=== PATIENT | female | born 1940 | race Caucasian/White ===

== ENCOUNTER 2023-02-27 18:59 | Inpatient (IN) | payer MEDICARE, SELFPAY ==
[2023-02-27 19:15] VITALS: BP 115/57; PULSE 78; RESP 18; TEMP 36.4; O2SAT 93
[2023-02-27] MEDS: Atorvastatin Calcium 20 MG Tablet PO (22:12)
[2023-02-27] MEDS: Cephalexin 500 MG Capsule PO (22:12)
[2023-02-27] MEDS: cycloBENZAPRine HCl 10 MG Tablet 5 MG PO (22:19)
--- NOTE | 2023-02-27 22:25 | HP.PCM_ITS ---
HPI - General General Date of Admission: 02/27/23 Date of Service: 02/28/23 Chief Complaint: Here for rehabilitation. HPI Narrative 02/08/2023 RAMÓN FARNSWORTH, is a 82 Female who presents with followin02/08/2023 Admit to [facility] with sepsis, hyperkalemia, K 6.5. Calcium gluconate, insulin, glucose, Lokelma, consult renal for hyperkalemia. Levaquin, Vancomycin given for sepsis secondary to urinary tract infection, bronchitis, left lower extremity cellulitis. acute kidney injury. Increase Levothyroxine to 75mcg daily for hypothyroidism. 02/21/2023 Creatinine 2.2 to 2.0 to 1.9 to 1.66 to 1.44 to 1.26. Renal recommended conservative treatment. Bergeron catheter for urinary retention. Broad spectrum IV antibiotics for left lower extremity cellulitis. Klebsiella urinary tract infection treated with Keflex. Sepsis resolved, 02/08/2023 blood cultures negative to date. Left banks wound culture negative. CT chest negative for bronchitis, negative for pneumonia. Off antibiotics. Bright red blood per rectum resolved. PT/OT for debility. Thoracentesis for pleural effusion showed transudate. Medical records limited. 02/27/2023 Admit to TCU with debility, here for rehabilitation, strengthening, prior to discharge home alone. [facility] Medical History (Updated 02/27/23 @ 22:[address] Fransico Marcelino MD) Acute kidney injury Chronic kidney disease, stage 3b Debility Diabetes mellitus History of lung cancer Hyperkalemia Hyperlipidemia Hypertension Left leg cellulitis Pleural effusion Sepsis Urinary retention Urinary tract infection Home Medications albuterol 2 puff Q4H PRN Shortness Of Breath 02/27/23 [History Last Taken Unknown] amiodarone 200 mg tablet 200 mg PO DAILY Check with primary doctor 02/27/23 [History Last Taken Unknown] apixaban 5 mg tablet (Eliquis) 5 mg PO BID Anticoagulant 02/27/23 [History Last Taken Unknown] atorvastatin 20 mg tablet 20 mg PO QHS Cholesterol 02/27/23 [History Last Taken Unknown] bumetanide 1 mg tablet 1 mg PO BID Check with primary doctor 02/27/23 [History Last Taken Unknown] cephalexin 1 cap PO/SL 3XD Infection 02/27/23 [History Last Taken Unknown] cyclobenzaprine 0.5 tablet PO/SL 3XD PRN muscle spasms 02/27/23 [History Last Taken Unknown] gabapentin 1 cap PO/SL BID Neuropathy 02/27/23 [History Last Taken Unknown] insulin lispro See Protocol OTHER ACHS Diabetes 02/27/23 [History Last Taken Unknown] levothyroxine 1 tablet PO/SL DAILY Thyroid 02/27/23 [History Last Taken Unknown] midodrine 1 tablet PO/SL 3XD Check with primary doctor 02/27/23 [History Last Taken Unknown] pantoprazole 1 tablet PO/SL DAILY Check with primary doctor 02/27/23 [History Last Taken Unknown] Allergy/AdvReac Type Severity Reaction Status Date / Time kiwi Allergy Food Verified 02/27/23 19:18 Allergy morphine Allergy Rash Verified 02/27/23 19:20 Penicillins Allergy Rash Verified 02/27/23 19:21 shellfish derived Allergy Food Verified 02/27/23 19:19 Allergy Family History (Updated 02/27/23 @ 22:[address] Fransico Marcelino MD) Mother CVA (cerebral vascular accident) Heart disease Father Diabetes Heart disease Surgical History (Updated 02/27/23 @ 22:[address] Fransico Marcelino MD) History of carpal tunnel surgery of left wrist History of coronary artery bypass graft History of gastric bypass History of lung biopsy History of total knee arthroplasty Social History (Updated 02/27/23 @ 22:[address] Fransico Marcelino MD) household members: none Smoking Status: Former smoker alcohol intake: never substance use type: does not use ROS Constitutional Constitutional: Reports weakness; Denies chills, fever(s) or weight gain ENT HEENT: Denies headache(s), nasal congestion or nasal discharge Cardiovascular Cardiovascular: Denies chest pain or palpitations Respiratory/Chest Respiratory/Chest: Denies cough, excessive phlegm production or shortness of breath with exertion Gastrointestinal Gastrointestinal: Denies abdominal pain, nausea or vomiting Genitourinary Genitourinary: Denies dysuria Musculoskeletal Musculoskeletal: Denies joint pain or joint swelling Integumentary Integumentary: Denies rash or wounds Neurologic Neurologic: Denies focal weakness, numbness or tingling Psychiatric Psychiatric: Denies anxiety, auditory hallucinations, depression, homicidal ideation or suicidal ideation Vital Signs Vital Signs Vital Signs: 02/27/23 19:15 Temperature 97.6 F L Temperature Source Oral Pulse Rate 78 Respiratory Rate 18 Blood Pressure 115/57 L Blood Pressure Mean 76 Blood Pressure Source Monitor Blood Pressure Position Semi-Fowlers Blood Pressure Location Right Arm Pulse Ox 93 Oxygen Delivery Method Nasal Cannula Oxygen Flow Rate (L/min) 3 Physical Exam Const alert General Appearance: cooperative HEENT normocephalic Eyes PERRL and EOMs intact bilaterally Neck supple, no JVD and no carotid bruits Resp normal respiratory effort, normal air movement and clear to auscultation bilaterally Cardio regular rate and regular rhythm GI normal to inspection, nondistended, normoactive bowel sounds, non-tender and non-distended Extremity normal capillary refill Extremity Narrative: Left lower extremity dressed. General Extremity: Negative for edema Skin no rashes or lesions noted General Skin Exam: no breakdown Psych affect normal Appearance: appropriate Results Lab / Micro Data Result Diagrams: 02/28/23 05:14 02/28/23 05:14 Assessment & Plan Assessment/Plan (1) Debility: (2) Sepsis: (3) Hyperkalemia: (4) Acute kidney injury: (5) Urinary retention: (6) Left leg cellulitis: (7) Urinary tract infection: (8) Pleural effusion: (9) Diabetes mellitus: (10) Hypertension: (11) Hyperlipidemia: (12) History of lung cancer: (13) Chronic kidney disease, stage 3b: PLAN: Plan 82 year old female with below past medical history hospitalized for sepsis secondary to left lower extremity cellulitis, Klebsiella urinary tract infection, complicated by acute kidney injury, hyperkalemia, pleural effusion requiring thoracentesis, admitted to TCU with debility, here for rehabilitation, strengthening, prior to discharge home alone. * Debility - PT/OT. * Pain - Tylenol 1000mg q6h prn pain (1-10). * Bowel - senna/colace 1 tablet bid, MOM 30ml po x 1 prn. * Adult immunization - Administer pneumonia vaccine, covid19 vaccine, flu vaccine as appropriate. * DVT prophylaxis - on Eliquis. * Shortness of breath - Albuterol 2 puffs q4h prn. * Atrial fibrillation - Amiodarone 200mg daily, Eliquis 5mg bid. * Hyperlipidemia - Atorvastatin 20mg qhs. * Edema - Bumex 1mg bidlx. * Sepsis/left lower extremity cellulitis/Klebsiella urinary tract infection - Keflex 500mg tid thru 03/06/2023. * Muscle spasm - Flexeril 5mg tid prn. * Folate deficiency - Folic acid 1mg daily. * Neuropathic pain - Gabapentin 100mg bid. * Hypothyroidism - Levothyroxine 50mcg daily. * Orthostatic hypotension - Midodrine 5mg tidcm. * GERD - Pantoprazole 40mg daily.
[2023-02-27 22:55] LABS: Bedside Glucose 241 mg/dL (74-106)
[2023-02-28 05:51] LABS: Absolute Lymphocyte Count 0.63 X10^3/uL (0.83-4.51); Absolute Neutrophil Count 5.4 X10^3/uL (2.0-7.7); Basophil# 0.05 X10^3/uL; Basophil% 0.7 % (0-1); Eosinophil# 0.05 X10^3/uL; Eosinophils% 0.7 % (0-5); Hematocrit 27.8 % (37-47); Lymphocyte # 0.63 X10^3/ul (0.83-4.51); Lymphocyte % 9.1 % (19-41); Mean Corp Hgb Conc 28.8 g/dL (32-36); Mean Corpuscular Hgb 25.4 pg (27.0-32.0); Mean Corpuscular Volume 88.3 fL (81-99); Mean Platelet Vol. 9.2 fl (6.2-12.0); Monocyte# 0.75 X10^3/uL; Monocyte% 10.8 % (0-10); NRBC Flagged by Analyzer 0 % (0-5); Neutrophil # 5.44 X10^3/uL (2.7-7.7); Neutrophil % 78.3 % (47-70); Platelet Count 242 K/mm3 (150-450); RBC Distribution Width SD 54.8 fl (35.1-43.9); Red Blood Count 3.15 M/mm3 (4.2-5.4)
[2023-02-28 06:25] LABS: Anion Gap 3 (5-15); BUN 54 mg/dL (7-18); BUN/Creat Ratio 37.2 RATIO (10-20); Calcium,Total 7.6 mg/dL (8.5-10.1); Chloride 101 mmol/L (98-107); Creatinine, Serum 1.45 mg/dL (0.55-1.02); EST Glomerular Filtration Rate 37 mL/min (>60); Est Glom Filt Rate - Afr Amer 45 mL/min (>60); Glucose 150 mg/dL (74-106); Potassium 4.4 mmol/L (3.5-5.1); Sodium Level 136 mmol/L (136-145)
[2023-02-28] MEDS: Amiodarone 200 MG Tablet PO (06:30)
[2023-02-28] MEDS: Bumetanide 2 MG Tablet 1 MG PO ×2 (06:30→15:01)
[2023-02-28] MEDS: APIXABAN 5 MG TABLET PO ×2 (06:30→18:01)
[2023-02-28] MEDS: Levothyroxine 50 MCG Tablet PO (06:31)
[2023-02-28] MEDS: Acetaminophen 500 MG Tablet 1000 MG PO (06:31)
[2023-02-28] MEDS: Gabapentin 100 MG Capsule PO ×2 (06:31→18:08)
[2023-02-28] MEDS: Cephalexin 500 MG Capsule PO ×2 (06:31→18:00)
[2023-02-28] MEDS: Senna/Docusate Sodium 1 Tablet PO ×2 (06:31→18:02)
[2023-02-28] MEDS: Pantoprazole Sodium 40 MG Tablet PO (06:31)
[2023-02-28 06:39] LABS: Bedside Glucose 144 mg/dL (74-106)
[2023-02-28 06:41] VITALS: BP 110/70; PULSE 92
[2023-02-28] MEDS: Folic Acid 1 MG Tablet PO (09:04)
[2023-02-28] MEDS: Midodrine HCl 5 MG Tablet PO ×3 (09:04→18:01)
[2023-02-28] MEDS: Tuberculin,Purif.prot.deriv. 50 TU/ML Vial 0.1 ML ID (09:18)
[2023-02-28 10:00] VITALS: BMI 48.5
--- NOTE | 2023-02-28 10:27 | WOUNDNOTE ---
wound photo: left medial lower leg
--- NOTE | 2023-02-28 10:27 | WOUNDNOTE ---
wound photo: left anterolateral lower leg
--- NOTE | 2023-02-28 10:36 | NURSING ---
Slot Shift Manager Note; Activity Asset: Viola Selby is independent in her choice of daily activities. She stated son is a teacher and will visit in the evenings after school. She watches tv, reads magazines and when at home she uses her computer. She stated she is not interested in out of room activities at this time. Staff will continue to offer out of room activities and respect her right to say no.
--- NOTE | 2023-02-28 11:10 | PCM.PN.DRR ---
TCU RX Drug Regimen Review Subjective: TCU Admission. 82 YOF hospitalized for sepsis secondary to left lower extremity cellulitis, Klebsiella urinary tract infection, complicated by acute kidney injury, hyperkalemia, pleural effusion requiring thoracentesis. Admitted to TCU with debility for strengthening and rehabilitation. Objective: Allergies kiwi Allergy (Verified 02/27/23 19:18) Food Allergy morphine Allergy (Verified 02/27/23 19:20) Rash Penicillins Allergy (Verified 02/27/23 19:21) Rash shellfish derived Allergy (Verified 02/27/23 19:19) Food Allergy Current Medications Generic Name Dose Route Start Last Admin Trade Name Freq PRN Reason Stop Dose Admin Acetaminophen 1,000 mg 02/27/23 22:42 02/28/23 06:31 Acetaminophen 500 Mg Tablet PO 1,000 mg Q6H PRN PRN Administration Pain Score 1-10 Albuterol Sulfate 2 puff 02/27/23 20:51 Albuterol Ih (6.7 Gm) 1 Puff Inhaler INHALATION Q4H PRN Shortness Of Breath Amiodarone HCl 200 mg 02/28/23 06:00 02/28/23 06:30 Amiodarone 200 Mg Tablet PO 200 mg DAILY ORALIA Administration Apixaban 5 mg 02/28/23 06:00 02/28/23 06:30 Apixaban 5 Mg Tablet PO 5 mg BID ORALIA Administration Atorvastatin Calcium 20 mg 02/27/23 22:00 02/27/23 22:12 Atorvastatin Calcium 20 Mg Tablet PO 20 mg QHS ORALIA Administration Bumetanide 1 mg 02/28/23 06:00 02/28/23 06:30 Bumetanide 2 Mg Tablet PO 1 mg BIDLX ORALIA Administration Cephalexin 500 mg 02/27/23 22:00 02/28/23 06:31 Cephalexin 500 Mg Capsule PO 03/06/23 23:59 500 mg TID ORALIA Administration Cyclobenzaprine HCl 5 mg 02/27/23 20:53 02/27/23 22:19 Cyclobenzaprine Hcl 10 Mg Tablet PO 5 mg TID PRN PRN Administration muscle spasms Folic Acid 1 mg 02/28/23 08:00 02/28/23 09:04 Folic Acid 1 Mg Tablet PO 1 mg BREAKFAST ORALIA Administration Gabapentin 100 mg 02/28/23 06:00 02/28/23 06:31 Gabapentin 100 Mg Capsule PO 100 mg BID ORALIA Administration Levothyroxine Sodium 50 mcg 02/28/23 06:00 02/28/23 06:31 Levothyroxine 50 Mcg Tablet PO 50 mcg DAILY@0600 ORALIA Administration Magnesium Hydroxide 30 ml 02/27/23 22:42 Magnesium Hydroxide 30 Ml Udc PO X1 PRN Constipation Melatonin 10 mg 02/28/23 22:00 Melatonin 10 Mg Tablet PO QHS [facility] Midodrine 5 mg 02/28/23 07:45 02/28/23 09:04 Midodrine Hcl 5 Mg Tablet PO 5 mg TIDCM ORALIA Administration Nystatin 1 applic 02/28/23 18:00 Nystatin Powder 15gm Bottle TOPICAL BID [facility] Protocol Pantoprazole Sodium 40 mg 02/28/23 06:00 02/28/23 06:31 Pantoprazole Sodium 40 Mg Tablet PO 40 mg DAILY ORALIA Administration Senna/Docusate Sodium 1 tablet 02/28/23 06:00 02/28/23 06:31 Senna/Docusate Sodium 1 Tablet PO 1 tablet BID ORALIA Administration Tuberculin PPD 0.1 ml 03/07/23 10:00 Tuberculin,Purif.Prot.Deriv. 50 Tu/Ml Vial ID 03/07/23 10:01 X1 ONE Problem List (Last Updated 02/27/23 @ 22:[address] Fransico Marcelino MD) Chronic kidney disease, stage 3b (Acute) History of lung cancer (Acute) Hyperlipidemia (Acute) Hypertension (Chronic) Diabetes mellitus (Acute) Pleural effusion (Acute) Urinary tract infection (Acute) Left leg cellulitis (Acute) Urinary retention (Acute) Acute kidney injury (Acute) Hyperkalemia (Acute) Sepsis (Acute) Debility (Acute) Vital Signs Temp Pulse Resp BP Pulse Ox O2 Del Method O2 Flow Rate 97.6 F L 92 18 110/70 93 Nasal Cannula 3 02/27/23 19:15 02/28/23 06:41 02/27/23 19:15 02/28/23 06:41 02/27/23 19:15 02/27/23 19:15 02/27/23 19:15 Oxygen Flow Rate (L/min) 3 Oxygen Delivery Method Nasal Cannula Weight: 120.383 kg Body Mass Index (BMI) 48.5 Sodium 136 mmol/L (136-145) 02/28/23 05:14 Potassium 4.4 mmol/L (3.5-5.1) 02/28/23 05:14 Chloride 101 mmol/L (98-107) 02/28/23 05:14 Carbon Dioxide 32.0 mmol/L (21.0-32.0) 02/28/23 05:14 Anion Gap 3 (5-15) L 02/28/23 05:14 BUN 54 mg/dL (7-18) H 02/28/23 05:14 Creatinine 1.45 mg/dL (0.55-1.02) H 02/28/23 05:14 Est GFR (MDRD) Af Amer 45 mL/min (>60) L 02/28/23 05:14 Est GFR (MDRD) Non-Af 37 mL/min (>60) L 02/28/23 05:14 BUN/Creatinine Ratio 37.2 RATIO (10-20) H 02/28/23 05:14 Glucose 150 mg/dL (74-106) H 02/28/23 05:14 Assessment/Plan: 1. Pain: acetaminophen 1000mg PO Q6H PRN pain 1-10. Resident has used 1 dose so far. Please continue to monitor for increased pain and PRN usage. 2. Bowel: senna/docusate 1T PO BID and MOM 30mL PO x1 PRN constipation. Resident has not used any PRN doses. No documented bowel movements. Please continue to monitor for constipation and PRN usage. 3. Sepsis/LLE cellulitis/Klebsiella UTI: cephalexin 500mg PO BID thru 03/06/23. Please continue to monitor for S/S of infection, diarrhea, upset stomach and renal function (dose adjusted for CrCl of 38 mL/min using adjusted body weight at weight in the computer is 120kg, height 62 inches, SCr 1.45 mg/dL). 4. Atrial fibrillation: amiodarone 200mg PO daily and apixaban 5mg PO BID. Please continue to monitor BP (last 110/70), HR (last 92), potassium (last 4.4mmol/L), sodium (last 136mmol/L), S/S of bleeding and hemoglobin (last 8g/dL). 5. Edema: bumetanide 1mg PO BIDLX. Please continue to monitor potassium, edema and renal function. 6. Hyperlipidemia: atorvastatin 20mg PO QHS. Please consider ordering a lipid panel and LFTs if clinically appropriate as there are no levels in the chart. Thanks. Please continue to monitor for muscle pain. 7. Orthostatic hypotension: midodrine 5mg PO TIDCM. Please continue to monitor BP (last 110/70). 8. Hypothyroidism: levothyroxine 50mcg PO daily. Please consider ordering a TSH if clinically appropriate as there is no level in the chart. Thanks. Please continue to monitor for S/S of hypo/hyperthyroidism. 9. GERD: pantoprazole 40mg PO daily. Please continue to monitor for S/S of GERD and diarrhea (BEERs medication). 10. Muscle spasm: cyclobenzaprine 5mg PO TID PRN muscle spasm. Resident has had 1 dose so far. Please continue to monitor for muscle spasms, PRN usage, drowsiness, dementia/delirium (BEERs medication) and anticholinergic side effects (BEERs medication). 11. Shortness of breath: albuterol MDI 2puff inhalation Q4H PRN SOB. Resident has not had any doses so far. Please continue to monitor for SOB and PRN usage. 12. Folate deficiency: folic acid 1mg PO daily. Please continue to monitor. Assessment/Plan for indications treated with psychotropic medications: 1. Neuropathic pain: gabapentin 100mg PO BID. Please continue to monitor for confusion, falls/fractures (BEERs medication) and renal function (dose appropriate for CrCl of 38mL/min using adjusted BW). GDR not appropriate as this medication is being used for neuropathic pain. Medical chart and medication regimen reviewed. The following medication irregularities or issues were identified: *1. Atorvastatin 20mg PO QHS. Please consider ordering a lipid panel and LFTs if clinically appropriate as there are no levels in the chart. Thanks *2. Melatonin 10mg PO QHS. I did not see a documented indication for this medication. Please consider adding the indication. Date of Note:: 02/28/23
[2023-02-28] MEDS: Magnesium Hydroxide 30 ML UDC PO (13:26)
[2023-02-28 14:44] VITALS: BP 114/66; PULSE 79; RESP 16; TEMP 36.4; O2SAT 94
[2023-02-28 15:29] LABS: Bedside Glucose 269 mg/dL (74-106)
--- NOTE | 2023-02-28 16:03 | CHAPLAIN ---
Type of Pastoral Visit _x__ Initial Visit ___ Follow-up Visit ___ On-call Visit ___ General Patient Visit ___ Spiritual Assessment ___ Family Conference ___ Bereavement ___ Rapid Response ___ Code Blue ___ Other (describe below) Pastoral Care Referral From _x__ Patient ___ Family ___ Nurse ___ Physician ___ Site Safety Manager ___ Rehabilitation Services Aide ___ Other (describe below) Sacrament/Intervention _x__ Active listening ___ Anointing ___ Restorationism ___ Bereavement ___ Communion _x__ Trina exploration ___ _x__ Life review _x__ Prayer ___ Reconciliation ___ Sacrament of Sick _x__ Supportive presence ___ Wedding ___ Other (describe below) Pastoral Comments upon introduction of self and role to the patient, pt says I need you to pray for me; pt is upset that changes in health and strength have happened so fast; pt is worried about her daughter that has had three strokes in six months; pt is person of trina and has Catholic anabaptist membership for many years; pt gets support from family; pt would like to have more visits in the future
[2023-02-28 17:23] LABS: Bedside Glucose 250 mg/dL (74-106)
[2023-02-28 19:50] VITALS: PULSE 106; RESP 18; O2SAT 98
[2023-02-28] MEDS: Nystatin Powder 15gm Bottle 1 APPLIC TOPICAL (19:59)
[2023-02-28 21:30] LABS: Bedside Glucose 298 mg/dL (74-106)
[2023-02-28] MEDS: MELATONIN 10 MG TABLET PO (21:40)
[2023-02-28] MEDS: Atorvastatin Calcium 20 MG Tablet PO (21:40)
[2023-02-28 23:35] VITALS: BMI 49.0
[2023-03-01] MEDS: Magnesium Hydroxide 30 ML UDC PO (05:28)
[2023-03-01] MEDS: Amiodarone 200 MG Tablet PO (05:28)
[2023-03-01] MEDS: Bumetanide 2 MG Tablet 1 MG PO ×2 (05:28→14:27)
[2023-03-01] MEDS: Gabapentin 100 MG Capsule PO ×2 (05:28→18:37)
[2023-03-01] MEDS: Pantoprazole Sodium 40 MG Tablet PO (05:29)
[2023-03-01] MEDS: APIXABAN 5 MG TABLET PO ×2 (05:29→18:38)
[2023-03-01] MEDS: Levothyroxine 50 MCG Tablet PO (05:29)
[2023-03-01] MEDS: Cephalexin 500 MG Capsule PO ×2 (05:29→18:38)
[2023-03-01] MEDS: Senna/Docusate Sodium 1 Tablet PO ×2 (05:29→18:37)
[2023-03-01] MEDS: Nystatin Powder 15gm Bottle 1 APPLIC TOPICAL ×2 (05:30→18:39)
[2023-03-01 05:36] VITALS: BP 167/47; PULSE 89
[2023-03-01 05:53] LABS: Hematocrit 29.6 % (37-47); Hemoglobin 8.4 g/dL (12.0-15.0)
[2023-03-01 06:49] LABS: Bedside Glucose 220 mg/dL (74-106)
[2023-03-01] MEDS: Midodrine HCl 5 MG Tablet PO ×3 (08:43→18:38)
[2023-03-01] MEDS: Folic Acid 1 MG Tablet PO (08:43)
[2023-03-01 08:45] VITALS: BP 111/51; PULSE 100
[2023-03-01 11:28] LABS: Bedside Glucose 326 mg/dL (74-106)
[2023-03-01] MEDS: Insulin Lispro 100 UNIT/ML INSULN.PEN SC ×2 (12:06→18:38)
--- NOTE | 2023-03-01 12:39 | CASEMGMT ---
Social Work Met with patient for initial assessment. Introduced self and role. Discussed code status and MOLST form. Pt confirms DNR-CCA, no intubation. MOLST completed and placed in Dr folder. Educated to [facility] insurance with NRD 03/01 and continued stay is not guaranteed with each review. Pt's goal is to return home alone [facility]. SW to continue to follow for DC planning. Cathy Young, [employer] NEUROPSYCHOLOGIST
[2023-03-01 13:41] VITALS: BP 114/59; PULSE 94; RESP 18; TEMP 35.9; O2SAT 92
[2023-03-01 17:11] LABS: Bedside Glucose 267 mg/dL (74-106)
[2023-03-01] MEDS: Atorvastatin Calcium 20 MG Tablet PO (19:55)
[2023-03-01] MEDS: MELATONIN 10 MG TABLET PO (19:55)
[2023-03-01 20:04] VITALS: PULSE 101; RESP 16
[2023-03-01 22:00] LABS: Bedside Glucose 319 mg/dL (74-106)
[2023-03-01] MEDS: Mirtazapine 15 MG Tablet 7.5 MG PO (22:16)
[2023-03-02] MEDS: Acetaminophen 500 MG Tablet 1000 MG PO ×2 (02:22→14:47)
[2023-03-02] MEDS: cycloBENZAPRine HCl 10 MG Tablet 5 MG PO (02:22)
[2023-03-02] MEDS: Menthol/Lanolin/Calamine/Znox 113 GM Tube 1 APPLIC TOPICAL ×2 (06:06→17:24)
[2023-03-02] MEDS: Bumetanide 2 MG Tablet 1 MG PO ×2 (06:07→13:36)
[2023-03-02] MEDS: Amiodarone 200 MG Tablet PO (06:07)
[2023-03-02] MEDS: Senna/Docusate Sodium 1 Tablet PO ×2 (06:08→17:33)
[2023-03-02] MEDS: Nystatin Powder 15gm Bottle 1 APPLIC TOPICAL ×2 (06:08→17:25)
[2023-03-02] MEDS: Cephalexin 500 MG Capsule PO ×2 (06:08→17:32)
[2023-03-02] MEDS: APIXABAN 5 MG TABLET PO ×2 (06:08→17:32)
[2023-03-02] MEDS: Levothyroxine 50 MCG Tablet PO (06:08)
[2023-03-02] MEDS: Pantoprazole Sodium 40 MG Tablet PO (06:08)
[2023-03-02] MEDS: Gabapentin 100 MG Capsule PO ×2 (06:10→17:34)
[2023-03-02] MEDS: Insulin Lispro 100 UNIT/ML INSULN.PEN SC ×3 (06:33→17:30)
[2023-03-02 06:49] LABS: Bedside Glucose 223 mg/dL (74-106)
[2023-03-02] MEDS: Midodrine HCl 5 MG Tablet PO ×3 (09:42→17:31)
[2023-03-02] MEDS: Folic Acid 1 MG Tablet PO (09:43)
[2023-03-02 12:05] LABS: Bedside Glucose 270 mg/dL (74-106)
[2023-03-02 13:40] VITALS: PULSE 97; RESP 18; O2SAT 96
[2023-03-02 16:00] VITALS: BP 118/69; PULSE 92; RESP 16; TEMP 36.4; O2SAT 100
[2023-03-02 16:52] LABS: Bedside Glucose 295 mg/dL (74-106)
[2023-03-02] MEDS: MELATONIN 10 MG TABLET PO (21:06)
[2023-03-02] MEDS: Mirtazapine 15 MG Tablet 7.5 MG PO (21:06)
[2023-03-02] MEDS: Atorvastatin Calcium 20 MG Tablet PO (21:06)
[2023-03-02 21:59] LABS: Bedside Glucose 324 mg/dL (74-106)
[2023-03-03] MEDS: cycloBENZAPRine HCl 10 MG Tablet 5 MG PO (00:03)
[2023-03-03] MEDS: Acetaminophen 500 MG Tablet 1000 MG PO ×2 (00:03→06:13)
[2023-03-03] MEDS: Gabapentin 100 MG Capsule PO ×2 (06:13→17:45)
[2023-03-03] MEDS: APIXABAN 5 MG TABLET PO ×2 (06:13→17:43)
[2023-03-03] MEDS: Senna/Docusate Sodium 1 Tablet PO ×2 (06:14→17:43)
[2023-03-03] MEDS: Pantoprazole Sodium 40 MG Tablet PO (06:14)
[2023-03-03] MEDS: Levothyroxine 50 MCG Tablet PO (06:14)
[2023-03-03] MEDS: Bumetanide 2 MG Tablet 1 MG PO ×2 (06:14→14:41)
[2023-03-03] MEDS: Amiodarone 200 MG Tablet PO (06:14)
[2023-03-03] MEDS: Cephalexin 500 MG Capsule PO ×2 (06:14→17:43)
[2023-03-03] MEDS: Menthol/Lanolin/Calamine/Znox 113 GM Tube 1 APPLIC TOPICAL ×2 (06:16→17:44)
[2023-03-03] MEDS: Nystatin Powder 15gm Bottle 1 APPLIC TOPICAL ×2 (06:17→17:44)
[2023-03-03 06:39] LABS: Bedside Glucose 282 mg/dL (74-106)
[2023-03-03] MEDS: Folic Acid 1 MG Tablet PO (08:30)
[2023-03-03] MEDS: Midodrine HCl 5 MG Tablet PO ×3 (08:30→17:42)
[2023-03-03] MEDS: Insulin Glargine-YFGN 100 UNIT/ML Pen 30 UNIT SC ×2 (08:31→20:49)
[2023-03-03] MEDS: Insulin Lispro 100 UNIT/ML INSULN.PEN SC (08:36)
[2023-03-03 10:00] VITALS: PULSE 99; RESP 18; O2SAT 97; BMI 49.6
[2023-03-03 11:51] LABS: Bedside Glucose 308 mg/dL (74-106)
[2023-03-03] MEDS: Insulin Lispro 100 UNIT/ML INSULN.PEN 10 UNIT SC ×2 (12:14→17:41)
[2023-03-03 13:50] VITALS: BP 132/89; PULSE 98; RESP 18; TEMP 35.2; O2SAT 96
[2023-03-03 16:32] LABS: Bedside Glucose 263 mg/dL (74-106)
[2023-03-03] MEDS: MELATONIN 10 MG TABLET PO (20:48)
[2023-03-03] MEDS: Atorvastatin Calcium 20 MG Tablet PO (20:48)
[2023-03-03] MEDS: Mirtazapine 15 MG Tablet 7.5 MG PO (20:49)
[2023-03-03 22:02] LABS: Bedside Glucose 203 mg/dL (74-106)
[2023-03-04] MEDS: APIXABAN 5 MG TABLET PO ×2 (06:36→17:01)
[2023-03-04] MEDS: Levothyroxine 50 MCG Tablet PO (06:36)
[2023-03-04] MEDS: Pantoprazole Sodium 40 MG Tablet PO (06:37)
[2023-03-04] MEDS: Bumetanide 2 MG Tablet 1 MG PO ×2 (06:37→14:42)
[2023-03-04] MEDS: Senna/Docusate Sodium 1 Tablet PO ×2 (06:37→17:02)
[2023-03-04] MEDS: Cephalexin 500 MG Capsule PO ×2 (06:37→17:01)
[2023-03-04] MEDS: Amiodarone 200 MG Tablet PO (06:37)
[2023-03-04] MEDS: Gabapentin 100 MG Capsule PO ×2 (06:40→17:03)
[2023-03-04 06:42] LABS: Bedside Glucose 132 mg/dL (74-106)
[2023-03-04] MEDS: Nystatin Powder 15gm Bottle 1 APPLIC TOPICAL ×2 (06:42→17:07)
[2023-03-04] MEDS: Menthol/Lanolin/Calamine/Znox 113 GM Tube 1 APPLIC TOPICAL ×2 (06:42→17:01)
[2023-03-04] MEDS: Insulin Lispro 100 UNIT/ML INSULN.PEN 10 UNIT SC (08:07)
[2023-03-04] MEDS: Folic Acid 1 MG Tablet PO (08:07)
[2023-03-04] MEDS: Midodrine HCl 5 MG Tablet PO ×3 (08:07→17:01)
[2023-03-04 10:00] VITALS: BMI 49.7
--- NOTE | 2023-03-04 12:01 | NURSING ---
Melatonin d/c and doxepin added qhs for improved rest at night
[2023-03-04 12:05] LABS: Bedside Glucose 149 mg/dL (74-106)
[2023-03-04] MEDS: Insulin Lispro 100 UNIT/ML INSULN.PEN 7 UNIT SC ×2 (13:10→17:00)
[2023-03-04 14:02] VITALS: BP 120/90; PULSE 91; RESP 16; TEMP 35.2; O2SAT 98
[2023-03-04 16:31] LABS: Bedside Glucose 153 mg/dL (74-106)
[2023-03-04] MEDS: cycloBENZAPRine HCl 10 MG Tablet 5 MG PO (19:43)
[2023-03-04] MEDS: Acetaminophen 500 MG Tablet 1000 MG PO (19:44)
[2023-03-04] MEDS: Atorvastatin Calcium 20 MG Tablet PO (19:44)
[2023-03-04] MEDS: Doxepin Hydrochloride 10 MG Capsule PO (19:45)
[2023-03-04] MEDS: Mirtazapine 15 MG Tablet 7.5 MG PO (19:45)
--- NOTE | 2023-03-04 19:48 | NURSING ---
Pt requested medication at this time
[2023-03-04] MEDS: Insulin Glargine-YFGN 100 UNIT/ML Pen 30 UNIT SC (22:06)
[2023-03-04 22:28] LABS: Bedside Glucose 159 mg/dL (74-106)
[2023-03-05] MEDS: Menthol/Lanolin/Calamine/Znox 113 GM Tube 1 APPLIC TOPICAL ×2 (04:54→19:44)
[2023-03-05] MEDS: Gabapentin 100 MG Capsule PO ×2 (04:54→17:53)
[2023-03-05] MEDS: Cephalexin 500 MG Capsule PO ×2 (04:55→17:50)
[2023-03-05] MEDS: Nystatin Powder 15gm Bottle 1 APPLIC TOPICAL ×2 (04:55→19:44)
[2023-03-05] MEDS: Senna/Docusate Sodium 1 Tablet PO ×2 (04:55→17:50)
[2023-03-05] MEDS: Levothyroxine 50 MCG Tablet PO (04:55)
[2023-03-05] MEDS: Amiodarone 200 MG Tablet PO (04:55)
[2023-03-05] MEDS: Pantoprazole Sodium 40 MG Tablet PO (04:55)
[2023-03-05] MEDS: Bumetanide 2 MG Tablet 1 MG PO ×2 (04:55→15:06)
[2023-03-05] MEDS: APIXABAN 5 MG TABLET PO ×2 (04:56→17:49)
[2023-03-05 06:28] LABS: Bedside Glucose 112 mg/dL (74-106)
[2023-03-05] MEDS: Folic Acid 1 MG Tablet PO (07:44)
[2023-03-05] MEDS: Insulin Lispro 100 UNIT/ML INSULN.PEN 7 UNIT SC ×3 (07:44→17:47)
[2023-03-05] MEDS: Midodrine HCl 5 MG Tablet PO ×3 (07:44→17:49)
[2023-03-05] MEDS: Magnesium Hydroxide 30 ML UDC PO (08:49)
--- NOTE | 2023-03-05 10:43 | WOUNDNOTE ---
wound photo: left lower leg(anterolateral)
--- NOTE | 2023-03-05 10:45 | WOUNDNOTE ---
wound photo: left medial lower leg
[2023-03-05 11:15] VITALS: O2SAT 93
[2023-03-05 12:00] LABS: Bedside Glucose 133 mg/dL (74-106)
[2023-03-05 14:11] VITALS: BP 104/58; PULSE 95; RESP 14; TEMP 36; O2SAT 97
[2023-03-05 16:07] VITALS: BMI 49.9
[2023-03-05 16:51] LABS: Bedside Glucose 140 mg/dL (74-106)
[2023-03-05 18:02] LABS: Absolute Lymphocyte Count 0.56 X10^3/uL (0.83-4.51); Absolute Neutrophil Count 4.7 X10^3/uL (2.0-7.7); Basophil# 0.03 X10^3/uL; Basophil% 0.5 % (0-1); Eosinophil# 0.03 X10^3/uL; Eosinophils% 0.5 % (0-5); Hematocrit 30.6 % (37-47); Hemoglobin 8.8 g/dL (12.0-15.0); Lymphocyte # 0.56 X10^3/ul (0.83-4.51); Lymphocyte % 9.3 % (19-41); Mean Corp Hgb Conc 28.8 g/dL (32-36); Mean Corpuscular Hgb 25.6 pg (27.0-32.0); Mean Platelet Vol. 9.6 fl (6.2-12.0); Monocyte# 0.67 X10^3/uL; Monocyte% 11.1 % (0-10); NRBC Flagged by Analyzer 0.5 % (0-5); Neutrophil # 4.74 X10^3/uL (2.7-7.7); Neutrophil % 78.3 % (47-70); POSITIVE DIFFERENTIAL YES; Platelet Count 261 K/mm3 (150-450); RBC Distribution Width CV 16.7 % (11.6-14.6); RBC Distribution Width SD 54.4 fl (35.1-43.9); Red Blood Count 3.44 M/mm3 (4.2-5.4); White Blood Count 6.1 K/mm3 (4.4-11.0)
[2023-03-05 18:04] LABS: Differential Indicated SCAN CRITERIA MET
[2023-03-05 18:31] LABS: Anion Gap 4 (5-15); BUN 70 mg/dL (7-18); BUN/Creat Ratio 38.7 RATIO (10-20); Calcium,Total 8.4 mg/dL (8.5-10.1); Chloride 95 mmol/L (98-107); Creatinine, Serum 1.81 mg/dL (0.55-1.02); EST Glomerular Filtration Rate 29 mL/min (>60); Est Glom Filt Rate - Afr Amer 35 mL/min (>60); Estimated Creatinine Clearance 19.61 ml/min; Glucose 126 mg/dL (74-106); Potassium 6.1 mmol/L (3.5-5.1); Sodium Level 131 mmol/L (136-145)
--- NOTE | 2023-03-05 18:44 | NURSING ---
Notified Dr. Marcelino of critical potassium 6.1. New order 30g kayexalate and BMP for tomorrow morning.
[2023-03-05 18:45] LABS: BNP,B-Type NATRIURETIC PEPTIDE 1555.2 pg/mL (0-100)
[2023-03-05 18:48] LABS: Differential Comment SCANNED
[2023-03-05 19:30] VITALS: O2SAT 95
[2023-03-05] MEDS: Sodium Polystyrene Sulfonate 15 GM/60 ML UDC 30 GM PO (19:42)
--- NOTE | 2023-03-05 20:25 | RAD_ITS ---
STUDY: X-RAY CHEST REASON FOR EXAM: Female, 82 years old. shortness of breath TECHNIQUE: Frontal and lateral views of the chest. COMPARISON: Prior comparison studies are not available for review at this time. FINDINGS: Abnormal examination. Decreased lung volumes. Soft tissue density consistent with mass in and around the right hilum and along the right medial mediastinum. Additional soft tissue density in the lateral inferior right hemithorax consistent with atelectasis/infiltrate/effusion. Right lung grossly clear. Implanted left Mediport catheter terminates at the level of the cavoatrial junction. Moderate cardiomegaly. Previous CABG. Degenerative changes throughout the spine. RAD/Chest PA and Lateral IMPRESSION: There are numerous abnormalities especially of the right lung, right hilum and mediastinum. CT of the chest with contrast is recommended since there are no prior studies available. Electronically Signed: Tavo Coello MD at 21:51 EDT ,
[2023-03-05] MEDS: Insulin Glargine-YFGN 100 UNIT/ML Pen 20 UNIT SC (20:53)
[2023-03-05] MEDS: Atorvastatin Calcium 20 MG Tablet PO (20:54)
[2023-03-05] MEDS: Mirtazapine 15 MG Tablet 7.5 MG PO (20:54)
[2023-03-05] MEDS: Doxepin Hydrochloride 10 MG Capsule PO (20:54)
[2023-03-05] MEDS: Bumetanide 1 MG/4 ML Vial IV (21:04)
[2023-03-05] MEDS: 0.9% Saline Lock 10 ML Syringe IV (21:13)
[2023-03-05 21:24] VITALS: BP 122/55; PULSE 84
[2023-03-05 21:26] LABS: Bedside Glucose 189 mg/dL (74-106)
--- NOTE | 2023-03-05 21:30 | NURSING ---
Lt upper chest mediport accessed for initial dose of IV Bumex using 3/4 in lin needle x 1 attempt successful. Strict sterile technique performed. Good blood return. Flushed w/ 10 ml NS. Two sterile 2x2s folded and placed under extension tubing. Secured w/ an opsite. Pt tolerated well. Will continue to monitor.
[2023-03-06] MEDS: Cephalexin 500 MG Capsule PO ×2 (05:24→18:05)
[2023-03-06] MEDS: Pantoprazole Sodium 40 MG Tablet PO (05:24)
[2023-03-06] MEDS: Levothyroxine 50 MCG Tablet PO (05:24)
[2023-03-06] MEDS: APIXABAN 5 MG TABLET PO ×2 (05:25→18:04)
[2023-03-06] MEDS: Senna/Docusate Sodium 1 Tablet PO ×2 (05:25→18:05)
[2023-03-06] MEDS: Gabapentin 100 MG Capsule PO ×2 (05:25→18:09)
[2023-03-06] MEDS: Nystatin Powder 15gm Bottle 1 APPLIC TOPICAL ×2 (05:27→18:06)
[2023-03-06] MEDS: Menthol/Lanolin/Calamine/Znox 113 GM Tube 1 APPLIC TOPICAL ×2 (05:27→18:06)
[2023-03-06 05:44] VITALS: BMI 49.3
[2023-03-06 06:26] LABS: Bedside Glucose 60 mg/dL (74-106)
[2023-03-06 06:35] LABS: Anion Gap 3 (5-15); BUN 67 mg/dL (7-18); BUN/Creat Ratio 38.7 RATIO (10-20); Calcium,Total 8.1 mg/dL (8.5-10.1); Chloride 96 mmol/L (98-107); Creatinine, Serum 1.73 mg/dL (0.55-1.02); EST Glomerular Filtration Rate 30 mL/min (>60); Est Glom Filt Rate - Afr Amer 36 mL/min (>60); Estimated Creatinine Clearance 20.51 ml/min; Glucose 77 mg/dL (74-106); Potassium 4.5 mmol/L (3.5-5.1); Sodium Level 133 mmol/L (136-145)
[2023-03-06 06:53] LABS: Bedside Glucose 76 mg/dL (74-106)
--- NOTE | 2023-03-06 07:25 | NURSING ---
AM blood sugar was 60. Administered 4 oz of orange juice and 2 crackers with peanut. Recheck was 76. Breakfast Humalog held. Note left for Dr. Marcelino.
[2023-03-06] MEDS: Bumetanide 1 MG/4 ML Vial IV ×2 (07:58→14:04)
[2023-03-06] MEDS: 0.9% Saline Lock 10 ML Syringe IV ×3 (07:59→18:51)
[2023-03-06 08:10] VITALS: BP 102/53; PULSE 91
[2023-03-06] MEDS: Folic Acid 1 MG Tablet PO (08:16)
[2023-03-06] MEDS: Amiodarone 200 MG Tablet PO (08:16)
[2023-03-06] MEDS: Midodrine HCl 5 MG Tablet PO ×3 (08:16→18:04)
[2023-03-06 08:19] VITALS: BP 133/47; PULSE 88
--- NOTE | 2023-03-06 08:29 | NURSING ---
Dr. Marcelino gave written and verbal order for chest CT from xray recommendations. Called insurance [employer], reference #[id number]. CT approved, authorization #[id number]. Order faxed to CT.
[2023-03-06 09:25] VITALS: PULSE 86; RESP 18; O2SAT 97
[2023-03-06 10:00] VITALS: BMI 49.3
--- NOTE | 2023-03-06 10:28 | CASEMGMT ---
Social Work BIMS (09/07) and PHQ-9 () completed for MDS assessment. SW explored positive responses. Pt reports to having staff come in and out of room all night, which is interrupting her sleep and causing daytime sleepiness. Pt reports to having poor appetite. Pt explains feeling a loss of independence stating I'm in this chair and can't move. SW empathized with pt, validated feelings. Focused on forward thinking. Pt is encouraged by receiving daily therapy and has motivation to improve. SW offered ongoing supportive visits and will offer after care resources if not improved by time of DC. SW noted pt is on Remeron and provided verbal communication to cutting machine fixer to less interruptions at night, if able. Cathy Young, GASOLINE FINISHER DYNAMITER
[2023-03-06 11:35] LABS: Bedside Glucose 154 mg/dL (74-106)
--- NOTE | 2023-03-06 12:51 | NURSING ---
PT GIVEN PFIZER BOOSTER IN LEFT DELT. PT TOLERATED WELL. WILL CONTINUE TO MONITOR.
[2023-03-06 14:55] VITALS: BP 136/53; PULSE 86; RESP 14; TEMP 36.7; O2SAT 97
[2023-03-06 16:51] LABS: Bedside Glucose 157 mg/dL (74-106)
--- NOTE | 2023-03-06 17:15 | NURSING ---
CALLED SON AND UPDATED HIM ON HIS MOM. PALLIATIVE CARE WAS BROUGHT UP AND SON STATED THEY HAD SOME THING STARTED IN [place] AND WOULD LIKE TO LOOK INTO IT HERE. THIS NURSE STATED TO BRING IT UP IN THE PLAN OF CARE MEETING TOMORROW AND STAFF WILL HELP HIM WITH THAT. SON VERY THANKFUL AND STATED HE WANTS TO KEEP HIS MOM COMFORTABLE POSSIBLE.
[2023-03-06 17:25] VITALS: O2SAT 95
[2023-03-06] MEDS: Ceftriaxone 1 GM/50 ML BAG IV (18:50)
[2023-03-06] MEDS: Mirtazapine 15 MG Tablet 7.5 MG PO (21:31)
[2023-03-06] MEDS: Doxepin Hydrochloride 10 MG Capsule PO (21:31)
[2023-03-06] MEDS: Atorvastatin Calcium 20 MG Tablet PO (21:32)
[2023-03-06] MEDS: Acetaminophen 500 MG Tablet 1000 MG PO (22:58)
--- NOTE | 2023-03-07 00:03 | NURSING ---
Pt reports irritation to LLE. VINCENT wrap removed and pt verbalizes instant relief. Dressing comprised of Kerlix, ABDs, and adaptic. Kerlix and ABDs removed- saturated w/ serous drainage. Adaptic left in place. Disposable pad placed under LLE and loosely placed over anterior lower leg. Will continue to monitor.
[2023-03-07 01:25] LABS: Bedside Glucose 205 mg/dL (74-106)
[2023-03-07 04:52] VITALS: BMI 49.7
[2023-03-07 05:44] LABS: Absolute Lymphocyte Count 0.65 X10^3/uL (0.83-4.51); Basophil# 0.04 X10^3/uL; Basophil% 0.7 % (0-1); Eosinophil# 0.07 X10^3/uL; Eosinophils% 1.3 % (0-5); Hemoglobin 8.3 g/dL (12.0-15.0); Lymphocyte # 0.65 X10^3/ul (0.83-4.51); Mean Corp Hgb Conc 28.6 g/dL (32-36); Mean Corpuscular Hgb 25.3 pg (27.0-32.0); Mean Corpuscular Volume 88.4 fL (81-99); Mean Platelet Vol. 9.8 fl (6.2-12.0); Monocyte# 0.67 X10^3/uL; Monocyte% 12.4 % (0-10); NRBC Flagged by Analyzer 1.1 % (0-5); Neutrophil # 3.97 X10^3/uL (2.7-7.7); Neutrophil % 73.2 % (47-70); Platelet Count 257 K/mm3 (150-450); RBC Distribution Width CV 16.8 % (11.6-14.6); RBC Distribution Width SD 54.3 fl (35.1-43.9); Red Blood Count 3.28 M/mm3 (4.2-5.4); White Blood Count 5.4 K/mm3 (4.4-11.0)
[2023-03-07 06:10] LABS: Bedside Glucose 176 mg/dL (74-106)
[2023-03-07] MEDS: Nystatin Powder 15gm Bottle 1 APPLIC TOPICAL ×2 (06:12→17:13)
[2023-03-07] MEDS: Menthol/Lanolin/Calamine/Znox 113 GM Tube 1 APPLIC TOPICAL ×2 (06:13→17:13)
[2023-03-07 06:16] LABS: Anion Gap 6 (5-15); BUN 67 mg/dL (7-18); BUN/Creat Ratio 37.6 RATIO (10-20); Calcium,Total 7.9 mg/dL (8.5-10.1); Chloride 93 mmol/L (98-107); Creatinine, Serum 1.78 mg/dL (0.55-1.02); EST Glomerular Filtration Rate 29 mL/min (>60); Est Glom Filt Rate - Afr Amer 35 mL/min (>60); Estimated Creatinine Clearance 19.94 ml/min; Glucose 168 mg/dL (74-106); Potassium 4.8 mmol/L (3.5-5.1); Sodium Level 132 mmol/L (136-145)
[2023-03-07] MEDS: Pantoprazole Sodium 40 MG Tablet PO (06:17)
[2023-03-07] MEDS: Gabapentin 100 MG Capsule PO ×2 (06:17→17:08)
[2023-03-07] MEDS: Senna/Docusate Sodium 1 Tablet PO ×2 (06:17→17:11)
[2023-03-07] MEDS: Levothyroxine 50 MCG Tablet PO (06:18)
[2023-03-07] MEDS: APIXABAN 5 MG TABLET PO ×2 (06:18→17:09)
[2023-03-07] MEDS: Bumetanide 1 MG/4 ML Vial IV (06:18)
[2023-03-07] MEDS: 0.9% Saline Lock 10 ML Syringe IV ×2 (06:19→09:29)
[2023-03-07] MEDS: Amiodarone 200 MG Tablet PO (09:25)
[2023-03-07] MEDS: Midodrine HCl 5 MG Tablet PO ×3 (09:25→17:09)
[2023-03-07] MEDS: Folic Acid 1 MG Tablet PO (09:25)
[2023-03-07] MEDS: Ceftriaxone 1 GM/50 ML BAG IV (09:29)
[2023-03-07 09:56] VITALS: O2SAT 95
--- NOTE | 2023-03-07 10:14 | CASEMGMT ---
Social Work IDT met with patient and son via conference call for care plan meeting. Discussed patient's progress in PT/OT/SN. Educated [place] [facility] [place]12, EDC 03/15 with a $0 noted copay. Pt is new on O2 and new amaro. Broached topic of having an alternate DC plan as pt is x2 assist currently. Educated to SNF placement and financial liability vs Medicaid. Pt and son are in agreement pt cannot return home at this time and will need SNF placement. Pt would like to apply for [facility] and son can assist with reviewing SNF list in [facility]. SW sent referral via email to [facility] for [facility] application. SW sent email to son of SNF choices with quality and resource data via [employer]. SW to continue to follow for DC planning. Nurse noted pt is currently on IV ATB through 03/13. JOHN PAUL FragosoW
[2023-03-07 11:21] LABS: Bedside Glucose 243 mg/dL (74-106)
[2023-03-07] MEDS: Tuberculin,Purif.prot.deriv. 50 TU/ML Vial 0.1 ML ID (12:29)
[2023-03-07] MEDS: Bumetanide 1 MG/4 ML Vial 2 MG IV (13:27)
[2023-03-07 15:31] VITALS: BP 97/64; PULSE 91; RESP 18; TEMP 36.3; O2SAT 95
[2023-03-07 21:00] VITALS: PULSE 80; RESP 18; O2SAT 94
[2023-03-07] MEDS: Atorvastatin Calcium 20 MG Tablet PO (21:15)
[2023-03-07] MEDS: Mirtazapine 15 MG Tablet 7.5 MG PO (21:15)
[2023-03-07] MEDS: Doxepin Hydrochloride 10 MG Capsule PO (21:15)
[2023-03-07] MEDS: cycloBENZAPRine HCl 10 MG Tablet 5 MG PO (22:57)
[2023-03-07] MEDS: Acetaminophen 500 MG Tablet 1000 MG PO (22:58)
[2023-03-08] MEDS: Senna/Docusate Sodium 1 Tablet PO ×2 (05:15→19:05)
[2023-03-08] MEDS: Gabapentin 100 MG Capsule PO ×2 (05:15→19:05)
[2023-03-08] MEDS: APIXABAN 5 MG TABLET PO ×2 (05:15→19:05)
[2023-03-08] MEDS: Nystatin Powder 15gm Bottle 1 APPLIC TOPICAL ×2 (05:16→19:06)
[2023-03-08] MEDS: Levothyroxine 50 MCG Tablet PO (05:16)
[2023-03-08] MEDS: Pantoprazole Sodium 40 MG Tablet PO (05:16)
[2023-03-08] MEDS: Menthol/Lanolin/Calamine/Znox 113 GM Tube 1 APPLIC TOPICAL ×2 (05:16→19:05)
[2023-03-08 05:19] VITALS: BP 99/56; PULSE 86
--- NOTE | 2023-03-08 05:19 | NURSING ---
IV Bumex held at this time d/t BP at 99/56. Pt is drowsy. Will continue to monitor.
[2023-03-08 05:43] VITALS: BMI 50.0
--- NOTE | 2023-03-08 05:44 | NURSING ---
Lab unable to obtain specimen for scheduled labs to rt arm. LUE edematous- elevated on soft pillow. This nurse skinny blood via left upper chest mediport. using aseptic technique, end cap cleaned w/ etoh, flushed w/ 10 ml NS, good blood return, 10 ml of blood withdrawn for discard, additional 10 ml of blood withdrawn for specimen, new end cap primed w/ NS, flushed w/ 20 ml NS. Clamp closed. Curos cap applied. Specimens sent to the lab via tube system. Insertion site without redness, warmth, or swelling. Will continue to monitor.
[2023-03-08 05:49] LABS: Absolute Lymphocyte Count 0.71 X10^3/uL (0.83-4.51); Absolute Neutrophil Count 3.6 X10^3/uL (2.0-7.7); Basophil# 0.04 X10^3/uL; Basophil% 0.8 % (0-1); Eosinophil# 0.02 X10^3/uL; Eosinophils% 0.4 % (0-5); Hematocrit 29.2 % (37-47); Hemoglobin 8.2 g/dL (12.0-15.0); Lymphocyte # 0.71 X10^3/ul (0.83-4.51); Lymphocyte % 14.1 % (19-41); Mean Corp Hgb Conc 28.1 g/dL (32-36); Mean Corpuscular Hgb 24.6 pg (27.0-32.0); Mean Corpuscular Volume 87.7 fL (81-99); Mean Platelet Vol. 9.9 fl (6.2-12.0); NRBC Flagged by Analyzer 1.4 % (0-5); Neutrophil # 3.63 X10^3/uL (2.7-7.7); Neutrophil % 72.3 % (47-70); Platelet Count 257 K/mm3 (150-450); RBC Distribution Width CV 16.7 % (11.6-14.6); Red Blood Count 3.33 M/mm3 (4.2-5.4)
[2023-03-08 06:19] LABS: Anion Gap 5 (5-15); BUN 71 mg/dL (7-18); BUN/Creat Ratio 34.6 RATIO (10-20); Chloride 93 mmol/L (98-107); Creatinine, Serum 2.05 mg/dL (0.55-1.02); EST Glomerular Filtration Rate 25 mL/min (>60); Est Glom Filt Rate - Afr Amer 30 mL/min (>60); Estimated Creatinine Clearance 17.31 ml/min; Glucose 219 mg/dL (74-106); Potassium 5.2 mmol/L (3.5-5.1); Sodium Level 129 mmol/L (136-145)
[2023-03-08 07:58] VITALS: O2SAT 96
[2023-03-08 09:00] VITALS: BP 96/41; PULSE 84
[2023-03-08] MEDS: Amiodarone 200 MG Tablet PO (09:22)
[2023-03-08] MEDS: Folic Acid 1 MG Tablet PO (09:22)
[2023-03-08] MEDS: Midodrine HCl 5 MG Tablet PO ×3 (09:22→19:05)
[2023-03-08] MEDS: 0.9% Saline Lock 10 ML Syringe IV (09:22)
[2023-03-08] MEDS: 0.9% Normal Saline 1,000 ML 60 ML IV (09:24)
[2023-03-08] MEDS: Ceftriaxone 1 GM/50 ML BAG IV (11:25)
--- NOTE | 2023-03-08 11:31 | MDS.RN ---
Information for the mds was obtained from review of the clinical record, interview of resident, staff, and direct observation of resident's care.
[2023-03-08 13:32] VITALS: BP 111/57; PULSE 79; RESP 19; TEMP 35.8; O2SAT 94
--- NOTE | 2023-03-08 14:50 | NURSING ---
Addendum entered by Laya Alford 03/08/23 15:49: Updated patient on new orders and updated son, Oswaldo, by phone. Addendum entered by Laya Alford 03/08/23 15:42: Patient has had low urinary output since amaro had been drained around 0400 today. Only 150cc noted in drainage bag before attempts to re-insert. Called and updated Dr. Marcelino on attempt to re-insert and low output. Orders to leave amaro out for now, order KUB, renal US, and consult Dr. Roe. Orders placed, Dr. Roe's office notified of consult. Per her staff she is in surgery but they will updated her of consult. Original Note: Amaro cath inserted at [facility] d/t low urinary output and sediment noted in tubing. Using sterile technique, attempt x 2 to inserting 16 fr amaro catheter unsuccessful. When second catheter removed, a scant amount og urine noted in tubing. Third attempt using sterile technique using [address] cath also unsuccessful. Pt tolerated all attempts fair. Bladder scan completed prior to st cath and question accuracy d/t body habitus- result 12 ml. Will continue to monitor. Call light w/ in reach and pt instructed to call staff for any needs, if she experiences the urge to void, and/or if she thinks she did void.
--- NOTE | 2023-03-08 15:26 | RAD_ITS ---
STUDY: X-RAY - ABDOMEN/PELVIS REASON FOR EXAM: Female, 82 years old. abdominal pain/fullness TECHNIQUE: 6 images AP KUB COMPARISON: None. FINDINGS: Normal visualized lung bases. There is an unremarkable bowel gas pattern. The visualized liver, spleen and kidneys are grossly normal in size and morphology. Normal soft tissue structures. Normal visualized osseous structures. RAD/Abdomen Single View IMPRESSION: Normal x-ray examination of the abdomen and pelvis. Electronically Signed: Armando Mohan MD at 16:37 EDT ,
--- NOTE | 2023-03-08 15:27 | US_ITS ---
STUDY: RENAL ULTRASOUND - COMPLETE REASON FOR EXAM: Female, 82 years old. oliguria TECHNIQUE: Ultrasound evaluation of the kidneys was performed with real-time and static salomon-scale imaging. COMPARISON: None. FINDINGS: RIGHT KIDNEY: Normal location of the right kidney, which is normal in size. The right kidney measures 11 x 4.5 x 4.3 cm. There is a normal cortex of the right kidney. The renal cortex measures 1.2 cm. There is no right renal mass or cyst. There are no right renal calculi. There is no right hydronephrosis. DISTAL RIGHT URETER: There is non-visualization of the distal right ureter. There is no demonstrated right ureterovesical junction calculus. There is a nonvisualized right ureteral jet. LEFT KIDNEY: Normal location of the left kidney, which is normal in size. The left kidney measures 10.5 x 4.1 x 5.4 cm. There is a normal cortex of the left kidney. The renal cortex measures 1 cm. There is no left renal mass or cyst. There are no left renal calculi. There is no left hydronephrosis. DISTAL LEFT URETER: There is non-visualization of the distal left ureter. There is no demonstrated left ureterovesical junction calculus. There is a nonvisualized left ureteral jet. Diffusely increased cortical echoes and prominence of the renal pyramids bilaterally consistent with nonspecific renal parenchymal disease BLADDER: The distended urinary bladder has a volume of 19.47 ml.. There is a normal wall thickness of the distended urinary bladder. There is no demonstrated mass within the urinary bladder. There are no demonstrated bladder calculi. Incidental finding of trace ascites and hepatic cysts US/Kidney and Bladder IMPRESSION: Findings consistent with nonspecific renal parenchymal disease. No evidence for renal obstruction. Electronically Signed: Justin Parsons MD at 17:07 EDT ,
--- NOTE | 2023-03-08 15:59 | CON.PCM_ITS ---
Assessment & Plan Assessment/Plan (1) Urinary retention: (2) Acute kidney injury: (3) Chronic kidney disease, stage 3b: (4) Urinary tract infection: PLAN: Plan Await findings on renal and bladder ultrasound. If there is no evidence of obstruction, I will defer management of her insufficiency to Dr. Marcelino. If there is hydronephrosis or the urinary bladder is filled with urine, I will make other recommendations. If she needs a Bergeron catheter for medical monitoring secondary to renal insufficiency, and I am needed for insertion I will be happy to do that. HPI Consult Data Date of Consult: 03/09/23 HPI Narrative Reason for Consultation: low urine output HPI Narrative: RAMÓN FARNSWORTH, is a 82 F with a history of lung cancer, diabetes, urinary tract infection, admitted after urosepsis with urinary retention. There has been concern per nursing staff about her urine output recently and she has been getting diuretics as well. The indwelling Bergeron was irrigated, then removed and replaced with no urine out. At this moment she is down getting imaging for further evaluation for potential urinary retention vs renal failure. [facility] Medical History Acute kidney injury Chronic kidney disease, stage 3b Debility Diabetes mellitus History of lung cancer Hyperkalemia Hyperlipidemia Hypertension Left leg cellulitis Pleural effusion Sepsis Urinary retention Urinary tract infection Home Medications albuterol 2 puff Q4H PRN Shortness Of Breath 02/27/23 [History Last Taken Unkn own] amiodarone 200 mg tablet 200 mg PO DAILY Check with primary doctor 02/27/23 [History Last Taken Unknown] apixaban 5 mg tablet (Eliquis) 5 mg PO BID Anticoagulant 02/27/23 [History Last Taken Unknown] atorvastatin 20 mg tablet 20 mg PO QHS Cholesterol 02/27/23 [History Last Taken Unknown] bumetanide 1 mg tablet 1 mg PO BID Check with primary doctor 02/27/23 [History Last Taken Unknown] cephalexin 1 cap PO/SL 3XD Infection 02/27/23 [History Last Taken Unknown] cyclobenzaprine 0.5 tablet PO/SL 3XD PRN muscle spasms 02/27/23 [History Last Taken Unknown] gabapentin 1 cap PO/SL BID Neuropathy 02/27/23 [History Last Taken Unknown] insulin lispro See Protocol OTHER ACHS Diabetes 02/27/23 [History Last Taken Unknown] levothyroxine 1 tablet PO/SL DAILY Thyroid 02/27/23 [History Last Taken Unknown] midodrine 1 tablet PO/SL 3XD Check with primary doctor 02/27/23 [History Last Taken Unknown] pantoprazole 1 tablet PO/SL DAILY Check with primary doctor 02/27/23 [History Last Taken Unknown] Allergy/AdvReac Type Severity Reaction Status Date / Time kiwi Allergy Food Verified 03/09/23 06:13 Allergy morphine Allergy Rash Verified 03/09/23 06:13 Penicillins Allergy Rash Verified 03/09/23 06:13 shellfish derived Allergy Food Verified 03/09/23 06:13 Allergy Family History Mother CVA (cerebral vascular accident) Heart disease Father Diabetes Heart disease Surgical History History of carpal tunnel surgery of left wrist History of coronary artery bypass graft History of gastric bypass History of lung biopsy History of total knee arthroplasty Social History household members: none Smoking Status: Former smoker alcohol intake: never substance use type: does not use Lab / Micro Data Result Diagrams: 03/09/23 05:12 03/09/23 05:12 Labs: Laboratory Results - last 24 hr 03/08/23 05:30: WBC 5.0, RBC 3.33 L, Hgb 8.2 L, Hct 29.2 L, MCV 87.7, MCH 24.6 L , MCHC 28.1 L, RDW Std Deviation 54.0 H, RDW Coeff of Lola 16.7 H, Plt Count 257, MPV 9.9, Immature Gran % (Auto) 0.400, Neut % (Auto) 72.3 H, Lymph % (Auto) 14.1 L, [place] % (Auto) 12.0 H, Eos % (Auto) 0.4, Baso % (Auto) 0.8, Absolute Neuts (auto) 3.6, Absolute Lymphs (auto) 0.71 L, Nucleated RBC % 1.4 03/08/23 05:30: Sodium 129 L, Potassium 5.2 H, Chloride 93 L, Carbon Dioxide 31.0, Anion Gap 5, BUN 71 H, Creatinine 2.05 H, Estim Creat Clear Calc 17.31, Est GFR (MDRD) Af Amer 30 L, Est GFR (MDRD) Non-Af 25 L, BUN/Creatinine Ratio 34.6 H, Glucose 219 H, Calcium 8.0 L
--- NOTE | 2023-03-08 16:51 | NURSING ---
per Dr Roe, pt is to have Bergeron replaced for strict I & O
--- NOTE | 2023-03-08 18:35 | RAD_ITS ---
STUDY: X-RAY - ABDOMEN/PELVIS REASON FOR EXAM: Female, 82 years old. Abdominal pain TECHNIQUE: Single AP view of the abdomen / pelvis. COMPARISON: Same day 3:51 PM. FINDINGS: Extremely limited by patient''s size. No definite bowel obstruction. Grossly unremarkable skeletal structures. RAD/Abdomen Single View IMPRESSION: Extremely limited because of patient size, and no gross change since exam of only 2.5 hours earlier. Electronically Signed: Tavo Coello MD at 19:01 EDT ,
[2023-03-08] MEDS: Electrolyte Solution/Peg's 4000 ML 1000 ML PO (20:15)
[2023-03-08] MEDS: Doxepin Hydrochloride 10 MG Capsule PO (21:29)
[2023-03-08] MEDS: Atorvastatin Calcium 20 MG Tablet PO (21:29)
[2023-03-08] MEDS: Mirtazapine 15 MG Tablet 7.5 MG PO (21:29)
[2023-03-09] MEDS: Acetaminophen 500 MG Tablet 1000 MG PO ×2 (03:48→22:19)
[2023-03-09] MEDS: cycloBENZAPRine HCl 10 MG Tablet 5 MG PO ×2 (03:48→22:19)
[2023-03-09 05:31] VITALS: BMI 51.7
[2023-03-09] MEDS: Menthol/Lanolin/Calamine/Znox 113 GM Tube 1 APPLIC TOPICAL ×2 (05:32→18:12)
[2023-03-09] MEDS: Nystatin Powder 15gm Bottle 1 APPLIC TOPICAL ×2 (05:32→18:13)
[2023-03-09] MEDS: Levothyroxine 50 MCG Tablet PO (05:33)
[2023-03-09] MEDS: APIXABAN 5 MG TABLET PO ×2 (05:33→18:12)
[2023-03-09] MEDS: Pantoprazole Sodium 40 MG Tablet PO (05:36)
[2023-03-09] MEDS: Senna/Docusate Sodium 1 Tablet PO ×2 (05:37→18:13)
[2023-03-09] MEDS: Gabapentin 100 MG Capsule PO ×2 (05:39→18:14)
[2023-03-09 05:42] LABS: Absolute Lymphocyte Count 0.38 X10^3/uL (0.83-4.51); Absolute Neutrophil Count 3.9 X10^3/uL (2.0-7.7); Basophil# 0.02 X10^3/uL; Basophil% 0.4 % (0-1); Eosinophil# 0.02 X10^3/uL; Eosinophils% 0.4 % (0-5); Hematocrit 28.8 % (37-47); Hemoglobin 8.3 g/dL (12.0-15.0); Lymphocyte # 0.38 X10^3/ul (0.83-4.51); Lymphocyte % 7.4 % (19-41); Mean Corp Hgb Conc 28.8 g/dL (32-36); Mean Corpuscular Hgb 25.1 pg (27.0-32.0); Mean Platelet Vol. 9.8 fl (6.2-12.0); Monocyte# 0.75 X10^3/uL; Monocyte% 14.6 % (0-10); NRBC Flagged by Analyzer 2.3 % (0-5); Neutrophil # 3.94 X10^3/uL (2.7-7.7); Neutrophil % 76.4 % (47-70); POSITIVE DIFFERENTIAL YES; Platelet Count 262 K/mm3 (150-450); RBC Distribution Width CV 16.8 % (11.6-14.6); RBC Distribution Width SD 53.9 fl (35.1-43.9); Red Blood Count 3.31 M/mm3 (4.2-5.4); White Blood Count 5.2 K/mm3 (4.4-11.0)
[2023-03-09 06:06] LABS: Anion Gap 6 (5-15); BUN 73 mg/dL (7-18); BUN/Creat Ratio 30.5 RATIO (10-20); Chloride 92 mmol/L (98-107); Creatinine, Serum 2.39 mg/dL (0.55-1.02); EST Glomerular Filtration Rate 21 mL/min (>60); Est Glom Filt Rate - Afr Amer 25 mL/min (>60); Estimated Creatinine Clearance 14.85 ml/min; Glucose 256 mg/dL (74-106); Potassium 5.1 mmol/L (3.5-5.1); Sodium Level 130 mmol/L (136-145)
--- NOTE | 2023-03-09 06:09 | NURSING ---
Dr. Marcelino notified due to patient change stated send to ED. Patient notified and ED called and updated and given report.
[2023-03-09 06:17] LABS: Differential Indicated SCAN CRITERIA MET
[2023-03-09 09:00] VITALS: O2SAT 96
--- NOTE | 2023-03-09 09:43 | NURSING ---
Received report from Ed patient will be returning to floor has Pleural effusion but unchanged, CT showed no blockages but remains with very little urinary output. Dr. More updated and aware.
--- NOTE | 2023-03-09 09:49 | NURSING ---
Spoke with nephrology office staff, notified them of consult. Left VM for surgical consult, await return call.
[2023-03-09] MEDS: Midodrine HCl 5 MG Tablet PO ×3 (10:18→18:12)
[2023-03-09] MEDS: Folic Acid 1 MG Tablet PO (10:19)
[2023-03-09] MEDS: Amiodarone 200 MG Tablet PO (10:27)
[2023-03-09 10:50] LABS: Bedside Glucose 220 mg/dL (74-106)
--- NOTE | 2023-03-09 10:52 | NURSING ---
meds given late due to patient in emergency room
--- NOTE | 2023-03-09 11:07 | CON.PCM.RE_ITS ---
Assessment & Plan Assessment/Plan (1) Acute kidney injury: (2) Chronic kidney disease, stage 3b: PLAN: Plan Impression/Plan: The patient is a 82-year-old woman with past history of type 2 diabetes mellitus, hypertension, PAD, CAD status post CABG, heart failure with preserved ejection fraction (EF 55%), atrial fibrillation, mitral valve disease status post replacement, right non-small cell lung cancer, and hyperlipidemia. The patient also has CKD stage G3b with baseline serum creatinine of around 1.5 mg/dL. Acute kidney injury on chronic kidney disease stage G3b. The patient has baseline serum creatinine of around 1.50 mg/dL. I suspect she has underlying diabetic kidney disease. I suspect that NICHOLAS is hemodynamically mediated. The patient is labile BP over the last several days. She is now on midodrine with better BP in the last 24 hours. However, prerenal NICHOLAS could have progressed to ischemic ATN over the last few days as well. Another possible cause for NICHOLAS is cardiorenal syndrome. The patient appears to be volume overloaded on exam. There is no evidence of obstruction on renal imaging today. Low suspicion for other causes of NICHOLAS at this point. Continue to keep MAP above 65 mmHg. I will check urinalysis and urine indices. If the patient remains hemodynamically stable (MAP above 65 mmHg), we can restart diuretic tomorrow if she remains oliguric with careful monitoring of renal function. There is no urgent need for kidney replacement therapy today. The patient has only been mildly hyperkalemic. There is no severe acidosis or respiratory compromise from volume overload. We will recheck renal function, volume status, electrolytes, and acid-base status again tomorrow. Current medications are reviewed and are appropriate dose for her renal function. Hyperkalemia. Patient was mildly hyperkalemic earlier this week. Potassium level is better today at 5.1 mmol/L. Suspect hyperkalemia was secondary to NICHOLAS. Limit potassium intake to 2 g/day or less. Recheck potassium level tomorrow. HPI Consult Data Date of Consult: 03/09/23 HPI Narrative Reason for Consultation: Acute kidney injury on chronic kidney disease. HPI Narrative: The patient is a 82-year-old woman with past history of type 2 diabetes mellitus, hypertension, PAD, CAD status post CABG, heart failure with preserved ejection fraction (EF 55%), atrial fibrillation, mitral valve disease status post replacement, right non-small cell lung cancer, and hyperlipidemia. The pat lissette also has CKD stage G3a with baseline serum creatinine of around 1.5 mg/dL. The patient was recently admitted to the hospital in [place] with congestive heart failure. She is admitted to TCU for further rehabilitation. Over the past week, serum creatinine has been rising. Serum creatinine has increased from baseline of 1.45 mg/dL on 02/28/2023 up to 1.78 mg/dL on 03/07/2023. Despite stopping diuretics, serum creatinine continued to increase to 2.05 mg/dL on 03/08/2023. Creatinine is 2.39 mg/dL today. Patient was evaluated in ED earlier today because of oliguria. Imaging of the urinary tract did not show any obstruction. The patient complains of dyspnea at baseline. She denies worsening of dyspnea over the last 24 hours. She denies chest pain, nausea, or vomiting. Patient complains of loose bowel movement although there is no watery diarrhea. She has not been getting NSAIDs on a regular basis since arrival to the TCU. [facility] Medical History Acute kidney injury Chronic kidney disease, stage 3b Debility Diabetes mellitus History of lung cancer Hyperkalemia Hyperlipidemia Hypertension Left leg cellulitis Pleural effusion Sepsis Urinary retention Urinary tract infection Home Medications albuterol 2 puff Q4H PRN Shortness Of Breath 02/27/23 [History Last Taken Unknown] amiodarone 200 mg tablet 200 mg PO DAILY Check with primary doctor 02/27/23 [History Last Taken Unknown] apixaban 5 mg tablet (Eliquis) 5 mg PO BID Anticoagulant 02/27/23 [History Last Taken Unknown] atorvastatin 20 mg tablet 20 mg PO QHS Cholesterol 02/27/23 [History Last Taken Unknown] bumetanide 1 mg tablet 1 mg PO BID Check with primary doctor 02/27/23 [History Last Taken Unknown] cephalexin 1 cap PO/SL 3XD Infection 02/27/23 [History Last Taken Unknown] cyclobenzaprine 0.5 tablet PO/SL 3XD PRN muscle spasms 02/27/23 [History Last Taken Unknown] gabapentin 1 cap PO/SL BID Neuropathy 02/27/23 [History Last Taken Unknown] insulin lispro See Protocol OTHER ACHS Diabetes 02/27/23 [History Last Taken Unknown] levothyroxine 1 tablet PO/SL DAILY Thyroid 02/27/23 [History Last Taken Unknown] midodrine 1 tablet PO/SL 3XD Check with primary doctor 02/27/23 [History Last Taken Unknown] pantoprazole 1 tablet PO/SL DAILY Check with primary doctor 02/27/23 [History Last Taken Unknown] Allergy/AdvReac Type Severity Reaction Status Date / Time kiwi Allergy Food Verified 03/09/23 06:13 Allergy morphine Allergy Rash Verified 03/09/23 06:13 Penicillins Allergy Rash Verified 03/09/23 06:13 shellfish derived Allergy Food Verified 03/09/23 06:13 Allergy Family History Mother CVA (cerebral vascular accident) Heart disease Father Diabetes Heart disease Surgical History History of carpal tunnel surgery of left wrist History of coronary artery bypass graft History of gastric bypass History of lung biopsy History of total knee arthroplasty Social History household members: none Smoking Status: Former smoker alcohol intake: never substance use type: does not use ROS ROS Narrative 07/03 ROS was done and is otherwise noncontributory aside from what is already documented in HPI Physical Exam Narrative General: Alert and oriented x3, NAD. HEENT: Normocephalic, atraumatic. Mucous membrane moist without erythema. PERRLA, EOMI. Hearing is intact. Neck: Supple. Trachea is midline. No thyromegaly or lymphadenopathy. Cardiovascular: Normal S1, S2. No rubs, murmurs, or gallops. Respiratory: Lungs are coarse to auscultation bilaterally. Abdomen: Normal bowel sounds, soft, nontender, no guarding or rebound, no organomegaly. Extremities: No clubbing or cyanosis. There is 2+ lower extremity edema. Musculoskeletal: Full passive range of motion, no joint swelling. Psychiatric: Normal mood and affect. Skin: Warm and dry, no rash. Neurologic: Cranial nerve II to XII are grossly intact. No focal neurologic deficits. Lab / Micro Data Result Diagrams: 03/09/23 05:12 03/09/23 05:12 Labs: Laboratory Results - last 24 hr 03/09/23 05:12: WBC 5.2, RBC 3.31 L, Hgb 8.3 L, Hct 28.8 L, MCV 87.0, MCH 25.1 L , MCHC 28.8 L, RDW Std Deviation 53.9 H, RDW Coeff of Lola 16.8 H, Plt Count 262, MPV 9.8, Immature Gran % (Auto) 0.800, Neut % (Auto) 76.4 H, Lymph % (Auto) 7.4 L, Rowan % (Auto) 14.6 H, Eos % (Auto) 0.4, Baso % (Auto) 0.4, Absolute Neuts (auto) 3.9, Absolute Lymphs (auto) 0.38 L, Nucleated RBC % 2.3, Differential Comment COMMENT 03/09/23 05:12: Sodium 130 L, Potassium 5.1, Chloride 92 L, Carbon Dioxide 32.0, Anion Gap 6, BUN 73 H, Creatinine 2.39 H, Estim Creat Clear Calc 14.85, Est GFR (MDRD) Af Amer 25 L, Est GFR (MDRD) Non-Af 21 L, BUN/Creatinine Ratio 30.5 H, Glucose 256 H, Calcium 8.0 L 03/09/23 10:27: POC Glucose 220 H Radiology Impression KUB X-Ray 03/08/23 15:26 IMPRESSION: Normal x-ray examination of the abdomen and pelvis. Electronically Signed: Armando Mohan MD at 16:37 EDT Reading Location ID and State: [facility] / [place] , Service support , Renal Ultrasound 03/08/23 15:27 IMPRESSION: Findings consistent with nonspecific renal parenchymal disease. No evidence for renal obstruction. Electronically Signed: Justin Parsons MD at 17:07 EDT , KUB X-Ray 03/08/23 18:35 IMPRESSION: Extremely limited because of patient size, and no gross change since exam of only 2.5 hours earlier. Electronically Signed: Tavo Coello MD at 19:01 EDT ,
[2023-03-09] MEDS: Ceftriaxone 1 GM/50 ML BAG IV (13:43)
[2023-03-09 14:32] LABS: Mucous, Urine 0 SEEN /hpf (<or=2+)
[2023-03-09 14:53] LABS: Color, Urine Yellow (Yellow); Glucose, Dipstick Normal (Normal); Ketone-Dipstick Negative (Negative); Leukocyte Esterase-Dipstick 500 /ul (Negative); Nitrite-Dipstick Negative (Negative); Occult Blood-Urine 250 /ul (Negative); Protein-Dipstick 100 mg/dl (Negative); Specific Gravity, Urine 1.025 (1.002-1.030); Urine Bilirubin Dipstick Negative (Negative); Urine Clarity Sl. Cloudy (Clear); Urine Urobilinogen Normal (Normal)
[2023-03-09 15:00] LABS: Red Blood Cells-Urine 25-50 SEEN /hpf (0-5)
[2023-03-09 15:01] LABS: Bacteria 1+ /hpf (None Seen); Squamous Epithelial Cells - UA 0-5 SEEN /hpf (5-10); White Blood Cells 25-50 SEEN /hpf (0-5)
[2023-03-09] MEDS: Mirtazapine 15 MG Tablet 7.5 MG PO (22:20)
[2023-03-09] MEDS: Atorvastatin Calcium 20 MG Tablet PO (22:20)
[2023-03-09] MEDS: Doxepin Hydrochloride 10 MG Capsule PO (22:21)
[2023-03-10 01:19] LABS: Urea Nitrogen, Urine 250 mg/dL (NO RANGE EST.); Urine Sodium < 5 mmol/L (Not Establ.)
[2023-03-10] MEDS: Senna/Docusate Sodium 1 Tablet PO ×2 (06:18→18:51)
[2023-03-10] MEDS: APIXABAN 5 MG TABLET PO ×2 (06:18→18:51)
[2023-03-10] MEDS: Pantoprazole Sodium 40 MG Tablet PO (06:18)
[2023-03-10] MEDS: Levothyroxine 50 MCG Tablet PO (06:18)
[2023-03-10] MEDS: Gabapentin 100 MG Capsule PO ×2 (06:18→18:51)
[2023-03-10] MEDS: Menthol/Lanolin/Calamine/Znox 113 GM Tube 1 APPLIC TOPICAL ×2 (06:18→18:51)
[2023-03-10] MEDS: cycloBENZAPRine HCl 10 MG Tablet 5 MG PO (06:19)
[2023-03-10] MEDS: Nystatin Powder 15gm Bottle 1 APPLIC TOPICAL ×2 (06:19→18:51)
[2023-03-10] MEDS: Acetaminophen 500 MG Tablet 1000 MG PO (06:19)
[2023-03-10 06:34] VITALS: O2SAT 93
[2023-03-10] MEDS: 0.9% Saline Lock 10 ML Syringe IV ×3 (08:23→12:01)
[2023-03-10 09:00] VITALS: BP 85/59; PULSE 93; RESP 22
[2023-03-10 09:05] VITALS: BP 97/64
--- NOTE | 2023-03-10 09:44 | NURSING ---
Bp check 85/59, recheck 97/64 pulse 93. Respirations 20-22, mouth breathing. Unable to get pulse ox reading, called Respiratory. Output only 200 cc via [place] cath. Dr. Marcelino called, N.O- Increase Midodrine to 10mg TID, first dose now. Hold amiodarone dose. Bolus 1 liter of NS. RN aware.
[2023-03-10 09:45] LABS: Albumin, Serum 2.3 g/dL (3.2-5.0); BUN 78 mg/dL (7-18); BUN/Creat Ratio 28.2 RATIO (10-20); Calcium,Total 8.1 mg/dL (8.5-10.1); Chloride 90 mmol/L (98-107); Creatinine, Serum 2.77 mg/dL (0.55-1.02); EST Glomerular Filtration Rate 18 mL/min (>60); Est Glom Filt Rate - Afr Amer 21 mL/min (>60); Estimated Creatinine Clearance 12.81 ml/min; Glucose 343 mg/dL (74-106); Potassium 5.5 mmol/L (3.5-5.1); Sodium Level 127 mmol/L (136-145)
[2023-03-10] MEDS: Folic Acid 1 MG Tablet PO (10:18)
[2023-03-10] MEDS: Midodrine HCl 5 MG Tablet 10 MG PO ×3 (10:18→22:35)
[2023-03-10] MEDS: 0.9% Normal Saline 1,000 ML 999 ML IV (10:42)
--- NOTE | 2023-03-10 10:54 | NURSING ---
Addendum entered by Nasrin Sunshine 03/10/23 16:04: Positive results from Kayexalate, XL loose BM Original Note: Labs received, creatinine 2.77, BUN 78, Sodium 127, potassium 5.5. Dr. Marcelino called, orders- Okay to give 1 liter NS bolus. Kayexalate 30gm PO x1. Repeat CBC, BMP 03/11. Orders read back, RN aware. Pulse ox sticker received from Respiratory. Pulse ox- 92-93% 3L O2 NC.
--- NOTE | 2023-03-10 10:54 | NURSING ---
Labs received, creatine 2.77, BUN 78, Sodium 127, potassium 5.5. Dr. Marcelino called, orders- Okay to give 1 liter NS bolus. Kayexalate 30gm PO x1. Repeat CBC, BMP 03/11. Orders read back, RN aware. Pulse ox sticker received from Respiratory. Pulse ox- 92-93% 3L O2 NC.
[2023-03-10] MEDS: Sodium Polystyrene Sulfonate 15 GM/60 ML UDC 30 GM PO (11:03)
[2023-03-10] MEDS: Ceftriaxone 1 GM/50 ML BAG IV (12:01)
--- NOTE | 2023-03-10 15:12 | NURSING ---
Called and updated son, KALIE, about new orders. Son stated he feels like pt is not getting better and is at the end and just wants her to be comfortable. Education provided on pt's medical history and outcome, emotional support provided. Son would like cemetery workers supervisor to set up consultation for palliative/hospice care and possibly in [place] area. VM left for psychiatric social worker supervisor. Son thanks staff for all their work and care.
--- NOTE | 2023-03-10 15:32 | PN.RENAL_ITS ---
Subjective Subjective stable Objective Data Objective Data Vital Signs: Vital Signs Temp Pulse Resp BP Pulse Ox O2 Del Method O2 Flow Rate 96.5 F L 93 22 H 97/64 93 Nasal Cannula 3 03/08/23 13:32 03/10/23 09:00 03/10/23 09:00 03/10/23 09:05 03/10/23 06:34 03/10/23 06:34 03/10/23 06:34 Oxygen Flow Rate (L/min) 3 Oxygen Delivery Method Nasal Cannula Weight: 127.686 kg Body Mass Index (BMI) 51.7 Intake & Output: Intake and Output for Last 24 Hours 03/08/23 03/09/23 03/10/23 23:59 23:59 23:59 Intake Total 2014 1837.5 / 1837.5 1580 / 1580 Output Total 700 / 700 225 / 225 50 / 50 Balance 1315 / 1315 1612.5 / 1612.5 1530 / 1530 Lab / Micro Data Result Diagrams: 03/09/23 05:12 03/10/23 08:20 Labs: Laboratory Results - last 24 hr 03/10/23 00:40: U Random Total Protein 146.0 H, Ur Random Sodium < 5, Urine Creatinine 165.00, Urine Urea Nitrogen 250 03/10/23 08:20: Sodium 127 L, Potassium 5.5 H, Chloride 90 L, Carbon Dioxide 31.0, BUN 78 H, Creatinine 2.77 H, Estim Creat Clear Calc 12.81, Est GFR (MDRD) Af Amer 21 L, Est GFR (MDRD) Non-Af 18 L, BUN/Creatinine Ratio 28.2 H, Glucose 343 H, Calcium 8.1 L, Phosphorus 6.0 H, Albumin 2.3 L Micro: Microbiology 03/03/23 06:50 Nasal Secretion SARS-CoV-2 Antigen (Rapid) - Final 03/01/23 05:34 Nasal Secretion SARS-CoV-2 Antigen (Rapid) - Final 02/27/23 22:24 Nasal Secretion SARS-CoV-2 Antigen (Rapid) - Final Physical Exam Narrative General: Alert and oriented x3, NAD. HEENT: Normocephalic, atraumatic. Mucous membrane moist without erythema. PERRLA, EOMI. Hearing is intact. Neck: Supple. Trachea is midline. No thyromegaly or lymphadenopathy. Cardiovascular: Normal S1, S2. No rubs, murmurs, or gallops. Respiratory: Lungs are coarse to auscultation bilaterally. Abdomen: Normal bowel sounds, soft, nontender, no guarding or rebound, no organomegaly. Extremities: No clubbing or cyanosis. There is 2+ lower extremity edema. Musculoskeletal: Full passive range of motion, no joint swelling. Psychiatric: Normal mood and affect. Skin: Warm and dry, no rash. Neurologic: Cranial nerve II to XII are grossly intact. No focal neurologic deficits. Assessment & Plan Assessment/Plan (1) Acute kidney injury: (2) Chronic kidney disease, stage 3b: PLAN: Plan Impression/Plan: The patient is a 82-year-old woman with past history of type 2 diabetes mellitus , hypertension, PAD, CAD status post CABG, heart failure with preserved ejection fraction (EF 55%), atrial fibrillation, mitral valve disease status post replacement, right non-small cell lung cancer, and hyperlipidemia. The patient also has CKD stage G3b with baseline serum creatinine of around 1.5 mg/dL. Acute kidney injury on chronic kidney disease stage G3b. The patient has baseline serum creatinine of around 1.50 mg/dL. I suspect she has underlying diabetic kidney disease. I suspect that NICHOLAS is hemodynamically mediated. The patient is labile BP over the last several days. She is now on midodrine with better BP in the last 24 hours. However, prerenal NICHOLAS could have progressed to ischemic ATN over the last few days as well. Another possible cause for NICHOLAS is cardiorenal syndrome. The patient appears to be volume overloaded on exam. There is no evidence of obstruction on renal imaging today. Low suspicion for other causes of NICHOLAS at this point. Creatinin e2.77 Continue to keep MAP above 65 mmHg. I will check urinalysis and urine indices. If the patient remains hemodynamically stable (MAP above 65 mmHg), we can restart diuretic tomorrow if she remains oliguric with careful monitoring of renal function. There is no urgent need for kidney replacement therapy today. The patient has only been mildly hyperkalemic. There is no severe acidosis or respiratory compromise from volume overload. We will recheck renal function, volume status, electrolytes, and acid-base status again tomorrow. Current medications are reviewed and are appropriate dose for her renal function. Hyperkalemia. Patient was mildly hyperkalemic earlier this week. Potassium level is better today at 5.1 mmol/L. Suspect hyperkalemia was secondary to NICHOLAS. Limit potassium intake to 2 g/day or less. Recheck potassium level tomorrow.
[2023-03-10 15:46] VITALS: BP 158/69; PULSE 87; RESP 16; TEMP 35.6; O2SAT 98
--- NOTE | 2023-03-10 15:54 | NURSING ---
Dr. Bose to see patient. New order to increase Midodrine to 10mg x4/day.
[2023-03-10 16:45] VITALS: PULSE 83; RESP 20; O2SAT 98
[2023-03-10 18:53] VITALS: BP 106/63; PULSE 90; RESP 19; O2SAT 97
[2023-03-10] MEDS: Atorvastatin Calcium 20 MG Tablet PO (22:35)
[2023-03-10] MEDS: Doxepin Hydrochloride 10 MG Capsule PO (22:35)
[2023-03-10] MEDS: Mirtazapine 15 MG Tablet 7.5 MG PO (22:35)
[2023-03-11 05:50] VITALS: BMI 52.5
[2023-03-11] MEDS: APIXABAN 5 MG TABLET PO ×2 (06:28→18:17)
[2023-03-11] MEDS: Menthol/Lanolin/Calamine/Znox 113 GM Tube 1 APPLIC TOPICAL ×2 (06:28→18:17)
[2023-03-11] MEDS: Senna/Docusate Sodium 1 Tablet PO ×2 (06:29→18:17)
[2023-03-11] MEDS: Nystatin Powder 15gm Bottle 1 APPLIC TOPICAL ×2 (06:29→18:17)
[2023-03-11] MEDS: Midodrine HCl 5 MG Tablet 10 MG PO ×4 (06:29→21:05)
[2023-03-11] MEDS: Levothyroxine 50 MCG Tablet PO (06:29)
[2023-03-11] MEDS: Pantoprazole Sodium 40 MG Tablet PO (06:29)
[2023-03-11] MEDS: Gabapentin 100 MG Capsule PO ×2 (06:32→18:20)
[2023-03-11 06:35] VITALS: BP 103/51; PULSE 80
[2023-03-11] MEDS: 0.9% Saline Lock 10 ML Syringe IV ×2 (06:36→10:13)
[2023-03-11 06:54] LABS: Absolute Lymphocyte Count 0.41 X10^3/uL (0.83-4.51); Absolute Neutrophil Count 5.2 X10^3/uL (2.0-7.7); Basophil# 0.04 X10^3/uL; Basophil% 0.6 % (0-1); Eosinophil# 0.24 X10^3/uL; Eosinophils% 3.5 % (0-5); Hematocrit 28.3 % (37-47); Hemoglobin 8.1 g/dL (12.0-15.0); Lymphocyte # 0.41 X10^3/ul (0.83-4.51); Mean Corp Hgb Conc 28.6 g/dL (32-36); Mean Corpuscular Volume 87.3 fL (81-99); Mean Platelet Vol. 10.2 fl (6.2-12.0); Monocyte% 13.2 % (0-10); NRBC Flagged by Analyzer 1.5 % (0-5); Neutrophil # 5.17 X10^3/uL (2.7-7.7); Neutrophil % 75.8 % (47-70); POSITIVE DIFFERENTIAL YES; Platelet Count 278 K/mm3 (150-450); RBC Distribution Width CV 16.9 % (11.6-14.6); RBC Distribution Width SD 54.1 fl (35.1-43.9); Red Blood Count 3.24 M/mm3 (4.2-5.4); White Blood Count 6.8 K/mm3 (4.4-11.0)
[2023-03-11 07:01] LABS: Differential Indicated SCAN CRITERIA MET
[2023-03-11 07:07] LABS: Differential Comment SCANNED
[2023-03-11 07:08] LABS: Anion Gap 8 (5-15); BUN 80 mg/dL (7-18); Calcium,Total 8.3 mg/dL (8.5-10.1); Chloride 91 mmol/L (98-107); Creatinine, Serum 2.96 mg/dL (0.55-1.02); EST Glomerular Filtration Rate 16 mL/min (>60); Est Glom Filt Rate - Afr Amer 20 mL/min (>60); Estimated Creatinine Clearance 11.99 ml/min; Glucose 313 mg/dL (74-106); Potassium 4.2 mmol/L (3.5-5.1); Sodium Level 131 mmol/L (136-145)
[2023-03-11] MEDS: Folic Acid 1 MG Tablet PO (09:20)
[2023-03-11] MEDS: Amiodarone 200 MG Tablet PO (09:20)
[2023-03-11] MEDS: Acetaminophen 500 MG Tablet 1000 MG PO ×2 (09:20→23:09)
[2023-03-11 09:23] VITALS: BP 106/54; PULSE 88; RESP 20; O2SAT 96
[2023-03-11] MEDS: Ceftriaxone 1 GM/50 ML BAG IV (10:13)
[2023-03-11 11:59] VITALS: O2SAT 96
[2023-03-11 13:59] VITALS: BP 99/59; PULSE 84; RESP 19; TEMP 36.2; O2SAT 94
[2023-03-11] MEDS: Doxepin Hydrochloride 10 MG Capsule PO (21:05)
[2023-03-11] MEDS: Mirtazapine 15 MG Tablet 7.5 MG PO (21:05)
[2023-03-11] MEDS: Atorvastatin Calcium 20 MG Tablet PO (21:05)
[2023-03-11 21:25] VITALS: PULSE 88; RESP 18; O2SAT 91
[2023-03-12] MEDS: cycloBENZAPRine HCl 10 MG Tablet 5 MG PO (00:42)
--- NOTE | 2023-03-12 03:05 | NURSING ---
Pt has not been sleeping well per pt report and this nurse observing; she states she is very uncomfortable. Frequently yelling out to staff, multiple interventions attempted: position changes, ensuring pt dressings dry and intact, 1:1 given, PRN Tylenol and Flexeril admin with minimally effective result for short period of time only. Pt frequently c/o 1200ml fluid restriction, this nurse educated pt on why this is ordered at this time.
[2023-03-12] MEDS: APIXABAN 5 MG TABLET PO (06:18)
[2023-03-12] MEDS: Menthol/Lanolin/Calamine/Znox 113 GM Tube 1 APPLIC TOPICAL (06:18)
[2023-03-12] MEDS: Levothyroxine 50 MCG Tablet PO (06:19)
[2023-03-12] MEDS: Senna/Docusate Sodium 1 Tablet PO (06:19)
[2023-03-12] MEDS: Nystatin Powder 15gm Bottle 1 APPLIC TOPICAL (06:19)
[2023-03-12] MEDS: Pantoprazole Sodium 40 MG Tablet PO (06:19)
[2023-03-12] MEDS: Gabapentin 100 MG Capsule PO (06:19)
[2023-03-12] MEDS: Midodrine HCl 5 MG Tablet 10 MG PO (06:22)
[2023-03-12 06:25] VITALS: BP 104/50; PULSE 92
[2023-03-12 06:44] VITALS: O2SAT 93
[2023-03-12 07:09] LABS: Absolute Lymphocyte Count 0.51 X10^3/uL (0.83-4.51); Absolute Neutrophil Count 6.1 X10^3/uL (2.0-7.7); Basophil# 0.04 X10^3/uL; Basophil% 0.5 % (0-1); Eosinophil# 0.29 X10^3/uL; Eosinophils% 3.7 % (0-5); Hematocrit 29.4 % (37-47); Hemoglobin 8.3 g/dL (12.0-15.0); Lymphocyte # 0.51 X10^3/ul (0.83-4.51); Lymphocyte % 6.5 % (19-41); Mean Corp Hgb Conc 28.2 g/dL (32-36); Mean Corpuscular Hgb 24.6 pg (27.0-32.0); Mean Corpuscular Volume 87.2 fL (81-99); Mean Platelet Vol. 10.4 fl (6.2-12.0); Monocyte# 0.86 X10^3/uL; NRBC Flagged by Analyzer 2.5 % (0-5); Neutrophil # 6.07 X10^3/uL (2.7-7.7); Neutrophil % 77.3 % (47-70); POSITIVE DIFFERENTIAL YES; Platelet Count 293 K/mm3 (150-450); RBC Distribution Width CV 17.1 % (11.6-14.6); RBC Distribution Width SD 54.4 fl (35.1-43.9); Red Blood Count 3.37 M/mm3 (4.2-5.4); White Blood Count 7.9 K/mm3 (4.4-11.0)
[2023-03-12 07:15] LABS: Differential Indicated SCAN CRITERIA MET
[2023-03-12 07:22] LABS: Albumin, Serum 2.4 g/dL (3.2-5.0); BUN 84 mg/dL (7-18); BUN/Creat Ratio 24.6 RATIO (10-20); Calcium,Total 8.3 mg/dL (8.5-10.1); Chloride 89 mmol/L (98-107); Creatinine, Serum 3.41 mg/dL (0.55-1.02); EST Glomerular Filtration Rate 14 mL/min (>60); Est Glom Filt Rate - Afr Amer 17 mL/min (>60); Estimated Creatinine Clearance 10.41 ml/min; Glucose 282 mg/dL (74-106); Phosphorus 6.9 mg/dL (2.5-4.9); Potassium 4.7 mmol/L (3.5-5.1); Sodium Level 127 mmol/L (136-145)
[2023-03-12] MEDS: Amiodarone 200 MG Tablet PO (08:01)
[2023-03-12] MEDS: Folic Acid 1 MG Tablet PO (08:01)
--- NOTE | 2023-03-12 08:16 | NURSING ---
Labs drawn per dr order. using aseptic technique, end cap cleaned w/ etoh, flushed w. 10 ml NS using push-pause method, withdrew 10ml blood for discard, additional 10ml of blood withdrawn for specimen, flushed w. 20 ml NS using push-pause method. Pt tolerated well. Specimens sent to lab via tube system. Port deaccessed. No active bleeding noted to site. Using sterile technique, site cleansed w/ chloraprep and allowed to dry, accessed x 1 attempt using 3/4 in lin needle, flushed w/ NS and good blood return noted, two sterile 2x2s placed under wings of lin needle, and secured w/ opsite. Site without redness, warmth, or swelling. Pt tolerated procedures well.
--- NOTE | 2023-03-12 08:36 | NURSING ---
Addendum entered by Laya Alford 03/12/23 09:33: Call back from Dr. Rodríguez, he is reviewing her chart and said he will come take a look at her. Original Note: Doctor Ryland asked that nephrology be paged about increasing creatinine and diuretic orders. Dr. Bose not covering for the hospital today. Per nephrology office Dr. Rodríguez is on for the hospital, page was sent for him to call back to TCU.
--- NOTE | 2023-03-12 09:19 | CASEMGMT ---
Addendum entered by Cathy Young 03/12/23 09:48: Cory spoke with son and pt is over resources and income currently. Pt can pay privately at a SNF for at least 30 days to admit. Son was educated by Cory on appropriate ways to spend down assets. Original Note: Social Work Received voicemail from [facility] stating pt's son is requesting referral to palliative. SW sent secure email to [facility] with referral. Son [facility] SN[facility]. SW sent referrals to 5 SNFs. Will continue to follow. JOHN PAUL Fragoso
[2023-03-12] MEDS: Ceftriaxone 1 GM/50 ML BAG IV (10:15)
--- NOTE | 2023-03-12 10:21 | PCM.PN.REN ---
Documented by User: ZAHRA Chinchilla 03/12/23 10:32 Subjective Subjective Resting in bed. No overnight events. Objective Data Objective Data Vital Signs: Vital Signs Temp Pulse Resp BP Pulse Ox O2 Del Method O2 Flow Rate 97.2 F L 92 18 104/50 L 93 Room Air 3 03/11/23 13:59 03/12/23 06:25 03/11/23 21:25 03/12/23 06:25 03/12/23 06:44 03/12/23 09:58 03/12/23 06:44 Oxygen Flow Rate (L/min) 3 Oxygen Delivery Method Room Air Weight: 126.099 kg Body Mass Index (BMI) 52.5 Intake & Output: Intake and Output for Last 24 Hours 03/10/23 03/11/23 03/12/23 23:59 23:59 23:59 Intake Total 1700 / 1700 710 / 710 120 / 120 Output Total 200 / 200 150 / 150 100 / 100 Balance 1500 / 1500 560 / 560 20 / 20 Lab / Micro Data Result Diagrams: 03/12/23 06:53 03/12/23 06:53 Labs: Laboratory Results - last 24 hr 03/12/23 06:53: WBC 7.9, RBC 3.37 L, Hgb 8.3 L, Hct 29.4 L, MCV 87.2, MCH 24.6 L, MCHC 28.2 L, RDW Std Deviation 54.4 H, RDW Coeff of Lola 17.1 H, Plt Count 293, MPV 10.4, Immature Gran % (Auto) 1.000 H, Neut % (Auto) 77.3 H, Lymph % (Auto) 6.5 L, Avery % (Auto) 11.0 H, Eos % (Auto) 3.7, Baso % (Auto) 0.5, Absolute Neuts (auto) 6.1, Absolute Lymphs (auto) 0.51 L, Nucleated RBC % 2.5, Differential Comment COMMENT 03/12/23 06:53: Sodium 127 L, Potassium 4.7, Chloride 89 L, Carbon Dioxide 30.0, BUN 84 H, Creatinine 3.41 H, Estim Creat Clear Calc 10.41, Est GFR (MDRD) Af Amer 17 L, Est GFR (MDRD) Non-Af 14 L, BUN/Creatinine Ratio 24.6 H, Glucose 282 H, Calcium 8.3 L, Phosphorus 6.9 H, Albumin 2.4 L Micro: Microbiology 03/03/23 06:50 Nasal Secretion SARS-CoV-2 Antigen (Rapid) - Final 03/01/23 05:34 Nasal Secretion SARS-CoV-2 Antigen (Rapid) - Final 02/27/23 22:24 Nasal Secretion SARS-CoV-2 Antigen (Rapid) - Final Physical Exam Narrative General: Alert and oriented x3, NAD Cardiovascular: Normal S1, S2. No rubs, murmurs, or gallops. Respiratory: Lungs with faint rhonchi noted Abdomen: Normal bowel sounds, soft, nontender Extremities: 3+ lower extremity edema. edema b/l arms/hands foely with scant yellow urine in tubing/bag Assessment & Plan Assessment/Plan (1) Acute kidney injury: (2) Chronic kidney disease, stage 3b: PLAN: Plan Impression/Plan: The patient is a 82-year-old woman with past history of type 2 diabetes mellitus, hypertension, PAD, CAD status post CABG, heart failure with preserved ejection fraction (EF 55%), atrial fibrillation, mitral valve disease status post replacement, right non-small cell lung cancer, and hyperlipidemia. The patient also has CKD stage G3b with baseline serum creatinine of around 1.5 mg/dL. When at [facility]: treated for LLE cellulitis with cefazolin. Underwent right thoracentesis with 1.3L removed. History of DM type II with last A1C 11.2% 02/08. History of HF with EF 40-45% with history of dilated IVC was on lasix MWF. Also developed NICHOLAS 2/2 ATN, cardiorenal syndrome, did not require INSPECTOR PUBLICATIONS, SCr peaked ~mid 2 range, UA small blood, 30 protein. Acute kidney injury on chronic kidney disease stage G3b. The patient has baseline serum creatinine of around 1.50 mg/dL. I suspect she has underlying diabetic kidney disease. Suspect that NICHOLAS is hemodynamically mediated. labile BP over the last several days and is now on midodrine with better BP However, prerenal NICHOLAS could have progressed to ischemic ATN Another possible cause for NICHOLAS is cardiorenal syndrome. The patient is volume overloaded on exam. She received bumex 2mg IV on 03/07 but nothing since then due to hypotension. She then received IVF bolus on 03/10. There is no evidence of obstruction on renal imaging Renal function has been worsening over past few days and today SCr 3.41 mg/dL. Due to worsening renal function recommend transfer to inpatient setting. Patient is volume overloaded and recommend diuretics. Her Bps are on low side and she may benefit from pressors. At this time there is no urgent need for kidney replacement therapy today but patient may be heading that way. Discussing with patient's nurse patient's son had questions about hospice. We will recheck renal function, volume status, electrolytes, and acid-base status again tomorrow. Current medications are reviewed and are appropriate dose for her renal function. Hyperkalemia. Patient was mildly hyperkalemic earlier this week. Potassium level is better today at 4.7 mmol/L. Suspect hyperkalemia was secondary to NICHOLAS. Limit potassium intake to 2 g/day or less. Recheck potassium level tomorrow. Documented by User: Dr. Jai Rodríguez MD 03/12/23 15:26 Objective Data Lab / Micro Data Result Diagrams: 03/12/23 06:53 03/12/23 06:53 Assessment & Plan Assessment/Plan (1) Acute kidney injury: (2) Chronic kidney disease, stage 3b: PLAN: Plan Impression/Plan: The patient is a 82-year-old woman with past history of type 2 diabetes mellitus, hypertension, PAD, CAD status post CABG, heart failure with preserved ejection fraction (EF 55%), atrial fibrillation, mitral valve disease status post replacement, right non-small cell lung cancer, and hyperlipidemia. The patient also has CKD stage G3b with baseline serum creatinine of around 1.5 mg/dL. When at [facility]: treated for LLE cellulitis with cefazolin. Underwent right thoracentesis with 1.3L removed. History of DM type II with last A1C 11.2% 02/08. History of HF with EF 40-45% with history of dilated IVC was on lasix MWF. Also developed NICHOLAS 2/2 ATN, cardiorenal syndrome, did not require INSPECTOR PUBLICATIONS, SCr peaked ~mid 2 range, UA small blood, 30 protein. Acute kidney injury on chronic kidney disease stage G3b. The patient has baseline serum creatinine of around 1.50 mg/dL. I suspect she has underlying diabetic kidney disease. Suspect that NICHOLAS is hemodynamically mediated. labile BP over the last several days and is now on midodrine with better BP However, prerenal NICHOLAS could have progressed to ischemic ATN Another possible cause for NICHOLAS is cardiorenal syndrome. The patient is volume overloaded on exam. She received bumex 2mg IV on 03/07 but nothing since then due to hypotension. She then received IVF bolus on 03/10. There is no evidence of obstruction on renal imaging Renal function has been worsening over past few days and today SCr 3.41 mg/dL. Due to worsening renal function recommend transfer to inpatient setting. Patient is volume overloaded and recommend diuretics. Her Bps are on low side and she may benefit from pressors. At this time there is no urgent need for kidney replacement therapy today but patient may be heading that way. Discussing with patient's nurse patient's son had questions about hospice. We will recheck renal function, volume status, electrolytes, and acid-base status again tomorrow. Current medications are reviewed and are appropriate dose for her renal function. Hyperkalemia. Patient was mildly hyperkalemic earlier this week. Potassium level is better today at 4.7 mmol/L. Suspect hyperkalemia was secondary to NICHOLAS. Limit potassium intake to 2 g/day or less. Recheck potassium level tomorrow. agree with above. needs hospital admission
--- NOTE | 2023-03-12 10:53 | NURSING ---
Addendum entered by Laya Alford 03/12/23 11:00: Report called to Beatriz in the ER. Original Note: Per nephrology patient needs to be admitted to the hospital to be medically managed. Notified Dr. Marcelino and son Oswaldo that patient to be sent to ER to be admitted.
--- NOTE | 2023-03-12 14:16 | WOUNDNOTE ---
Pt currently out of the room. nursing states patient was taken to the ER d/t worsening kidney function.
--- NOTE | 2023-03-12 16:39 | DS.PCM_ITS ---
Providers Date of Admission: 02/27/23 Primary Care Physician: BETTIE NARAYANAN Consultations 02/28/23 02:20 Consult: Onc/Wound/home health physical therapist Routine Comment: OPEN AREAS LLE 03/08/23 15:34 Consult: Urology Routine Consulting Provider: Felicita Roe Reason for Consult: oliguria, elevated creatinine EMERGENT Consult: No Notified: Yes Date Notified: 03/08/23 Time Notified: 15:34 Method of Notification: phone Comments:: Spoke w/ staff, they will notify MD 03/09/23 09:35 Consult: Nephrology Routine Consulting Provider: Nikko Grider Reason for Consult: acute kidney injury EMERGENT Consult: No MD Notified: Yes Date Notified: 03/09/23 Time Notified: 09:35 Method of Notification: Verbal Comments:: Notified office staff of consult 03/12/23 09:33 Consult: Hospice / Palliative Care Routine Consulting Provider: [facility] Reason for Consult: PALLIATIVE - CKD, hx of lung cancer. Per son request EMERGENT Consult: No MD Notified: Yes Date Notified: 03/12/23 Time Notified: 09:33 Method of Notification: Verbal Reason For Visit: ACUTE/CHRONIC RESPIRATORY FAILURE Diagnosis Discharge Diagnosis (1) Acute kidney injury: Status: Acute Code(s): N17.9 - Acute kidney failure, unspecified (2) Chronic kidney disease, stage 3b: Status: Acute Code(s): N18.32 - Chronic kidney disease, stage 3b Plan 82 year old female with below past medical history hospitalized for sepsis secondary to left lower extremity cellulitis, Klebsiella urinary tract infection, complicated by acute kidney injury, hyperkalemia, pleural effusion requiring thoracentesis, admitted to TCU with debility, here for rehabilitation, strengthening, prior to discharge home alone. * Debility - PT/OT. * Pain - Tylenol 1000mg q6h prn pain (1-10). * Bowel - senna/colace 1 tablet bid, MOM 30ml po x 1 prn. * Adult immunization - Administer pneumonia vaccine, covid19 vaccine, flu vaccine as appropriate. * DVT prophylaxis - on Eliquis. * Shortness of breath - Albuterol 2 puffs q4h prn. * Atrial fibrillation - Amiodarone 200mg daily, Eliquis 5mg bid. * Hyperlipidemia - Atorvastatin 20mg qhs. * Edema - Bumex 1mg bidlx. * Sepsis/left lower extremity cellulitis/Klebsiella urinary tract infection - Keflex 500mg tid thru 03/06/2023. * Muscle spasm - Flexeril 5mg tid prn. * Folate deficiency - Folic acid 1mg daily. * Neuropathic pain - Gabapentin 100mg bid. * Hypothyroidism - Levothyroxine 50mcg daily. * Orthostatic hypotension - Midodrine 5mg tidcm. * GERD - Pantoprazole 40mg daily. Medications at Discharge Home Medications amiodarone 200 mg tablet 200 mg PO DAILY HEART 02/27/23 apixaban 5 mg tablet (Eliquis) 5 mg PO BID Anticoagulant 02/27/23 atorvastatin 20 mg tablet 20 mg PO QHS Cholesterol 02/27/23 bumetanide 1 mg tablet 1 mg PO DAILY FLUID 02/27/23 acetaminophen 500 mg tablet (Acetaminophen Extra Strength) 1,000 mg PO Q6H PRN P AIN SCORE 1-10 03/12/23 ceftriaxone 1 gram intravenous solution 1 g IV Q24H 03/12/23 cyclobenzaprine 5 mg tablet 5 mg PO TID PRN Spasms 03/12/23 doxepin 10 mg capsule 10 mg PO QHS SLEEP 03/12/23 folic acid 1 mg tablet 1 mg PO BREAKFAST SUPPLEMENT 03/12/23 gabapentin 100 mg capsule 100 mg PO BID SEIZURE 03/12/23 insulin lispro 100 unit/mL subcutaneous pen See Rx Instructions .Route .COMPLEX 03/12/23 levothyroxine 50 mcg tablet 50 mcg PO DAILY THYROID 03/12/23 magnesium hydroxide 400 mg/5 mL oral suspension 30 ml PO X1 PRN Constipation 03/12/23 menthol 0.44 %-zinc oxide 20.6 % topical ointment (Calmoseptine) 1 applic topical BID SKIN 03/12/23 metoprolol succinate 50 mg tablet,extended release 24 hr 50 mg PO DAILY HEART 03/12/23 midodrine 10 mg tablet 10 mg PO 4X/DAY 03/12/23 mirtazapine 7.5 mg tablet 7.5 mg PO QHS SLEEP 03/12/23 nystatin 100,000 unit/gram topical powder (Nystop) 1 applic topical BID SKIN 03/12/23 omeprazole 20 mg capsule,delayed release 20 mg PO DAILY GERD 03/12/23 pantoprazole 40 mg tablet,delayed release 40 mg PO DAILY GERD 03/12/23 sennosides 8.6 mg-docusate sodium 50 mg tablet (Senna with Docusate Sodium) 1 tab PO BID CONSTIPATION 03/12/23 Hospital Course Operations None Procedures None Summary of Care Provided Minutes Spent on Discharge: 15 Hospital Course: 82 year old female with below past medical history hospitalized for sepsis secondary to left lower extremity cellulitis, Klebsiella urinary tract infection, complicated by acute kidney injury, hyperkalemia, pleural effusion requiring thoracentesis, admitted to TCU with debility, here for rehabilitation, strengthening, prior to discharge home alone. 03/12/2023 Renal function worse, hypotensive, oliguric, Nephrology recommends admission to hospital for treatment. Discharge to [facility] ED 03/12/2023 for evaluation, admission to hospital. Weight / BMI Weight Weight: 126.099 kg Body Mass Index (BMI) 52.5 ABG / Lab / Microbiology Data Result Diagrams: 03/12/23 06:53 03/12/23 06:53 Laboratory: Laboratory Results - last 24 hr 03/12/23 06:53: WBC 7.9, RBC 3.37 L, Hgb 8.3 L, Hct 29.4 L, MCV 87.2, MCH 24.6 L , MCHC 28.2 L, RDW Std Deviation 54.4 H, RDW Coeff of Lola 17.1 H, Plt Count 293, MPV 10.4, Immature Gran % (Auto) 1.000 H, Neut % (Auto) 77.3 H, Lymph % (Auto) 6.5 L, [place] % (Auto) 11.0 H, Eos % (Auto) 3.7, Baso % (Auto) 0.5, Absolute Neuts (auto) 6.1, Absolute Lymphs (auto) 0.51 L, Nucleated RBC % 2.5, Differential Comment COMMENT 03/12/23 06:53: Sodium 127 L, Potassium 4.7, Chloride 89 L, Carbon Dioxide 30.0, BUN 84 H, Creatinine 3.41 H, Estim Creat Clear Calc 10.41, Est GFR (MDRD) Af Amer 17 L, Est GFR (MDRD) Non-Af 14 L, BUN/Creatinine Ratio 24.6 H, Glucose 282 H, Calcium 8.3 L, Phosphorus 6.9 H, Albumin 2.4 L Microbiology: Microbiology 03/03/23 06:50 Nasal Secretion SARS-CoV-2 Antigen (Rapid) - Final 03/01/23 05:34 Nasal Secretion SARS-CoV-2 Antigen (Rapid) - Final 02/27/23 22:24 Nasal Secretion SARS-CoV-2 Antigen (Rapid) - Final D/C Instructions Discharge Diet: No restrictions Discharge Activity: Return to Normal Activity, May Shower and Use Walker Weight Bearing Status: Weight bearing as tolerated Call your doctor if you observe: Fever of 101 or Higher, Inability to urinate, Inability to have a bowel movement, Shortness of breath, Dizziness, Fainting spells, Swelling in the ankles, Chest pain and Uncontrolled pain Additional Instructions: Discharge to [facility] ED 03/12/2023 for evaluation, admission to hospital. Please Follow Up With: Angeles Ramirez MD Meaningful Use Info Meaningful Use Diagnoses (Choose all that apply): None applicable Discharge Plan Admission Admit Date/Time: 02/27/23 18:59 Primary Reason for Your Visit: Debility. Attending Provider: Fransico Marcelino Chi Primary Care Provider: BETTIE NARAYANAN Consulting Providers: Felicita Roe ; Nikko Grider ; Rashad Miles ; Kelsey Montes ; Florinda Alarcon ; Bridget Coy [employer] Instructions Additional Instructions / Restrictions: Discharge to [facility] ED 03/12/2023 for evaluation, admission to hospital. Discharge Orders/Prescriptions Prescriptions: No Action atorvastatin 20 mg tablet 20 mg PO QHS amiodarone 200 mg tablet 200 mg PO DAILY Label Comments: take 1 tablet by mouth once daily bumetanide 1 mg tablet 1 mg PO DAILY Label Comments: take 1 tablet by mouth daily Eliquis 5 mg tablet 5 mg PO BID Label Comments: take 1 tablet by mouth twice a day metoprolol succinate 50 mg tablet extended release 24 hr 50 mg PO DAILY omeprazole 20 mg capsule,delayed release(DR/EC) 20 mg PO DAILY insulin lispro 100 unit/mL Insulin Pen See Rx Instructions .ROUTE .COMPLEX Rx Instructions: PT TAKES 4 UNITS IN THE AM AND 5 UNITS IN THE EVENING MAY SELF ADJUST NEEDED. sennosides-docusate sodium [Senna with Docusate Sodium] 8.6-50 mg Tablet 1 tab PO BID doxepin 10 mg Capsule 10 mg PO QHS ceftriaxone 1 gram Recon Soln 1 g IV Q24H acetaminophen [Acetaminophen Extra Strength] 500 mg Tablet 1,000 mg PO Q6H PRN (Reason: PAIN SCORE 1-10) magnesium hydroxide 400 mg/5 mL Suspension 30 ml PO X1 PRN (Reason: Constipation) levothyroxine 50 mcg Tablet 50 mcg PO DAILY pantoprazole 40 mg Tablet,Delayed Release (Dr/Ec) 40 mg PO DAILY folic acid 1 mg Tablet 1 mg PO BREAKFAST gabapentin 100 mg Capsule 100 mg PO BID nystatin [Nystop] 100,000 unit/gram Powder 1 applic TOPICAL BID midodrine 10 mg Tablet 10 mg PO 4X/DAY Rx Instructions: do not give last dose of day after 6PM or within 4 hrs of bedtime cyclobenzaprine [Flexeril] 5 mg Tablet 5 mg PO TID PRN (Reason: Spasms) mirtazapine 7.5 mg Tablet 7.5 mg PO QHS menthol-zinc oxide [Calmoseptine] 0.44-20.6 % Ointment 1 applic TOPICAL BID Referrals / Follow Up: BETTIE NARAYANAN [Other] Disposition Disposition (needs filled in before D/C Order can be placed): [facility]
[2023-03-15 06:16] LABS: Bedside Glucose 231 mg/dL (74-106)
[2023-03-15 08:25] LABS: Bedside Glucose 228 mg/dL (74-106)
[2023-03-16 06:09] LABS: Bedside Glucose 177 mg/dL (74-106)
== END 2023-03-12 11:00 | disposition short-term general hospital (02) | DRG 602 ==
PROVIDERS: Internal Medicine Nephrology; Admitting Provider Family Medicine Geriatric Medicine; Visit Provider Family Medicine Geriatric Medicine
DX: L03.116 Cellulitis of left lower limb (principal); N17.0 Acute kidney failure with tubular necrosis; I13.0 Hypertensive heart and chronic kidney disease with heart failure and stage 1 through stage 4 chronic kidney disease, or unspecified chronic kidney disease; J90 Pleural effusion, not elsewhere classified; I50.32 Chronic diastolic (congestive) heart failure; N39.0 Urinary tract infection, site not specified; E11.22 Type 2 diabetes mellitus with diabetic chronic kidney disease; B96.1 Klebsiella pneumoniae [K. pneumoniae] as the cause of diseases classified elsewhere; E11.40 Type 2 diabetes mellitus with diabetic neuropathy, unspecified; N18.32 Chronic kidney disease, stage 3b; I48.91 Unspecified atrial fibrillation; Z79.4 Long term (current) use of insulin; E11.51 Type 2 diabetes mellitus with diabetic peripheral angiopathy without gangrene; E03.9 Hypothyroidism, unspecified; E78.5 Hyperlipidemia, unspecified; E53.8 Deficiency of other specified B group vitamins; I95.1 Orthostatic hypotension; E87.5 Hyperkalemia; K21.9 Gastro-esophageal reflux disease without esophagitis; Z79.01 Long term (current) use of anticoagulants; Z87.891 Personal history of nicotine dependence; Z79.890 Hormone replacement therapy; Z79.899 Other long term (current) drug therapy; R33.9 Retention of urine, unspecified; Z23 Encounter for immunization; Z98.84 Bariatric surgery status; F32.A Depression, unspecified
CPT/HCPCS: 0124A; 36415; 71046; 74018; 76770; 80048; 80069; 81001; 82570; 82962; 83880; 84156; 84300; 84540; 85014; 85018; 85025; 87811; 91312; 97110; 97116; 97162; 97166; 97530; 97535; 97802; J7030; J7050; A4216

== ENCOUNTER → 2023-03-06 | Outpatient (CLI) | payer MEDICARE, SELFPAY ==
--- NOTE | 2023-03-06 08:49 | CT_ITS ---
STUDY: CT CHEST WITHOUT CONTRAST REASON FOR EXAM: Female, 82 years old. CHEST MASS RADIATION DOSAGE (If Supplied By Facility): CTDIvol = ( 20.13 ) mGy, DLP = ( 892.67 ) mGycm TECHNIQUE: Transaxial imaging was performed without the administration of intravenous contrast material. Multiplanar coronal and sagittal images were reformatted. Individualized dose optimization techniques were used for this CT. COMPARISON: Comparison is made with prior chest radiograph dated March 05, 2023. FINDINGS: CHEST A left-sided portacatheter seen within the superior vena cava. Moderate sized right pleural effusion with compressive atelectasis at the right lung base. Dense consolidation in the right upper lobe with air bronchograms. No definite mass lesion is seen. Increased markings in the left lung suggestive of scarring. Radiographic follow-up is recommended following treatment. Sternal cerclage wires and vascular clips are present from a prior sternotomy and coronary artery bypass graft procedure (CABG). Cardiomegaly. Normal mediastinum. Normal hilar regions. Normal unenhanced pulmonary arteries. There is atherosclerotic calcification of the aortic arch with tortuosity and elongation of the aortic arch and descending thoracic aorta. There are multi-level degenerative changes of the thoracic spine. There is no demonstrated abnormality of the visualized upper abdomen. CT/Chest without Contrast IMPRESSION: Moderate size right pleural effusion with compressive atelectasis at the right lung base and right perihilar consolidation with air bronchograms. No definite mass lesion is seen on this time although follow-up radiographs is recommended. Electronically Signed: Boris Ramires MD at 15:20 EDT ,
== END | disposition home or self-care (01) ==
LOC: CT 08:48
PROVIDERS: Referring Provider Family Medicine Geriatric Medicine; Visit Provider Family Medicine Geriatric Medicine
DX: R91.8 Other nonspecific abnormal finding of lung field (principal)
CPT/HCPCS: 71250

== ENCOUNTER → 2023-03-08 | Outpatient (CLI) | payer MEDICARE, SELFPAY ==
--- NOTE | 2023-03-08 09:16 | VDUE_ITS ---
Reason For Study: Lt arm swelling Right Proximal Left Proximal Unable to acquire contralateral image due to Left jugular vein is spontaneous, widely patient positioning. patent, phasic, with no intraluminal echogenicity noted. Left subclavian vein is spontaneous, widely patent, phasic, with no intraluminal echogenicity noted. Left Arm Left axillary vein is spontaneous, patent, phasic, competent, compressible and demonstrates augmentation. Left brachial vein is compressible. Left cephalic vein is compressible. Left basilic vein is compressible. Left Lower Arm Left radial vein is compressible. Left ulnar vein is compressible. Patient Safety Preliminary results sent to TCU 1. VL/Venous Duplex US, Unilateral Interpretation Summary No evidence for acute deep venous thrombosis[left] upper extremity with patent and compressible cephalic and basilic veins. Ordering Physician: Fransico Marcelino Chi Referring Physician: Fransico Marcelino Chi Performed By: Varinder Velasco RVT ???
== END | disposition home or self-care (01) ==
LOC: CVS 09:15
PROVIDERS: Referring Provider Family Medicine Geriatric Medicine; Visit Provider Family Medicine Geriatric Medicine
DX: R22.32 Localized swelling, mass and lump, left upper limb (principal)
CPT/HCPCS: 93971

== ENCOUNTER 2023-03-09 06:03 | Emergency (ER) | payer MEDICARE, SELFPAY ==
[2023-03-09 06:04] VITALS: BP 104/73; PULSE 89; RESP 21; TEMP 36.4; O2SAT 97; BMI 55.7
--- NOTE | 2023-03-09 06:15 | RAD_ITS ---
EXAM: XR CHEST, 1 VIEW CLINICAL INDICATION: dyspnea TECHNIQUE: Frontal view of the chest. COMPARISON: Portable chest radiograph of 03/05/2023. Nonenhanced chest CT of 03/06/2023. FINDINGS: LUNGS AND PLEURAL SPACES: Right lung base remains opacified by a moderate right pleural effusion and underlying infiltrate as was noted on prior CT; right pleural effusion is stable to minimally smaller than on the prior study. There is stable masslike consolidation in the right perihilar region, extending into the right paratracheal region, unchanged. Stable minimal prominence of the left parahilar interstitial markings. No left pleural effusion. No pneumothorax. HEART: Heart size remains moderately enlarged, without pulmonary venous hypertension. MEDIASTINUM: There is stable prominence of the left lung hilum due to a prominent left main pulmonary artery on prior CT. Findings of prior median sternotomy and CABG again noted. BONES/JOINTS: Osseous structures are demineralized with thoracolumbar degenerative changes. SOFT TISSUES: Large body habitus. TUBES, LINES AND DEVICES: Chemotherapy infusion port remains in place. RAD/Chest 1 View (Portable) IMPRESSION: Stable to slightly smaller moderate right pleural effusion, opacifying the right lung base. Stable masslike consolidation in the left perihilar region and right paratracheal region. No significant new finding as compared to the prior exam. Electronically Signed: Romulo Wiseman MD at 6:50 EDT ,
[2023-03-09 07:05] LABS: Troponin-I HS 53 pg/mL (3.0-54.0)
--- NOTE | 2023-03-09 07:16 | EX.ED.DYSGE1 ---
HPI History of Present Illness Chief Complaint: Edema Informant: patient Onset/Context/Timing Onset: Weeks (1) Context: Gradual Onset Timing: Continuous Quality: Edema Location: Generalized Worsened by: Nothing Relieved by: Nothing Narrative Narrative: Patient presents with lower extremity swelling and weight gain that has been getting worse over the past week. Patient is in the TCU and nursing staff there noted a 10 pound weight gain since yesterday. Patient denies any shortness of breath. Patient does admit to a cough. Patient admits to some nausea but denies any vomiting. Patient denies any chest pain. Patient states she has been getting more swollen over the past week. Patient has a history of chronic kidney disease. [facility] Medical History Acute kidney injury Chronic kidney disease, stage 3b Debility Diabetes mellitus History of lung cancer Hyperkalemia Hyperlipidemia Hypertension Left leg cellulitis Pleural effusion Sepsis Urinary retention Urinary tract infection Home Medications albuterol 2 puff Q4H PRN Shortness Of Breath 02/27/23 [History Last Taken Unknown] amiodarone 200 mg tablet 200 mg PO DAILY Check with primary doctor 02/27/23 [History Last Taken Unknown] apixaban 5 mg tablet (Eliquis) 5 mg PO BID Anticoagulant 02/27/23 [History Last Taken Unknown] atorvastatin 20 mg tablet 20 mg PO QHS Cholesterol 02/27/23 [History Last Taken Unknown] bumetanide 1 mg tablet 1 mg PO BID Check with primary doctor 02/27/23 [History Last Taken Unknown] cephalexin 1 cap PO/SL 3XD Infection 02/27/23 [History Last Taken Unknown] cyclobenzaprine 0.5 tablet PO/SL 3XD PRN muscle spasms 02/27/23 [History Last Taken Unknown] gabapentin 1 cap PO/SL BID Neuropathy 02/27/23 [History Last Taken Unknown] insulin lispro See Protocol OTHER ACHS Diabetes 02/27/23 [History Last Taken Unknown] levothyroxine 1 tablet PO/SL DAILY Thyroid 02/27/23 [History Last Taken Unknown] midodrine 1 tablet PO/SL 3XD Check with primary doctor 02/27/23 [History Last Taken Unknown] pantoprazole 1 tablet PO/SL DAILY Check with primary doctor 02/27/23 [History Last Taken Unknown] Allergy/AdvReac Type Severity Reaction Status Date / Time brayden Allergy Food Verified 03/09/23 06:13 Allergy morphine Allergy Rash Verified 03/09/23 06:13 Penicillins Allergy Rash Verified 03/09/23 06:13 shellfish derived Allergy Food Verified 03/09/23 06:13 Allergy Family History Mother CVA (cerebral vascular accident) Heart disease Father Diabetes Heart disease Surgical History History of carpal tunnel surgery of left wrist History of coronary artery bypass graft History of gastric bypass History of lung biopsy History of total knee arthroplasty Social History household members: none Smoking Status: Former smoker alcohol intake: never substance use type: does not use ROS ROS ED Constitutional Constitutional ED: Denies chills or fever(s) Eyes Eyes: Denies blurry vision or change in vision ENT ENT ED: Denies rhinorrhea or sore throat Cardiovascular Cardiovascular: Denies chest pain or palpitations Respiratory/Chest Respiratory/Chest: Reports cough; Denies dyspnea Gastrointestinal Gastrointestinal: Reports nausea; Denies vomiting Genitourinary Genitourinary ED: Denies dysuria or hematuria Musculoskeletal Musculoskeletal: Denies back pain or neck pain Integumentary Denies abscess or rash Neurologic Neurologic: Reports weakness; Denies headache(s) Allergic/Immunologic Allergic/Immunologic ED: Denies mouth swelling or urticaria EXAM Physical Exam Const Vital Signs: 03/09/23 06:04 03/09/23 09:48 Temperature 97.5 F L Temperature Source Temporal Pulse Rate 89 Respiratory Rate 21 H Blood Pressure 104/73 107/48 L Blood Pressure Mean 83 Pulse Ox 97 Positive well nourished, well developed and obese General Appearance ED: well developed and NAD Nutritional Appearance: obese HEENT Reports moist mucous membranes Neck supple and no JVD Resp normal respiratory effort Auscultation: rales diffuse Cardio regular rate Rhythm: abnormal rhythm irregularly irregular GI normal to inspection, nondistended, normoactive bowel sounds Palpation: soft and tender LLQ (Mild); Negative for guarding or rebound tenderness present Extremity normal to inspection General Extremety ED: Yes edema; Negative for tenderness General Extremity: edema bilateral lower extremity Details: moderate Neuro oriented x3, CN's II-XII intact bilaterally and no sensory deficits noted Sensorium / Orientation: alert Motor Exam: strength 5/5 throughout Psych mental status grossly normal Skin Skin Narrative: There is a dressing over the left lower leg and ankle area. Patient has a healing wound over this area. MDM MDM MDM Narrative Medical decision making narrative: Differential diagnosis includes congestive heart failure, acute kidney injury, electrolyte abnormality, cardiac dysrhythmia, and cardiac ischemia. Patient had CBC and basic metabolic profile done earlier today. Chest x-ray will be obtained to assess for congestive heart failure and pneumonia. EKG will be obtained to assess for cardiac dysrhythmia and cardiac ischemia. High-sensitivity troponin will be obtained to assess for cardiac ischemia. BNP will be obtained to assess for congestive heart failure and fluid overload. History & Record Review Additional record(s) reviewed:: Prior outpatient record Lab Data Attestation: I reviewed the patient's lab results. Lab results narrative: Outpatient labs from earlier today were reviewed. CBC shows a stable anemia with a hemoglobin of 8.3 and hematocrit of 28.8. These are unchanged compared to previous results. Basic metabolic profile shows BUN of 73 and a creatinine of 2.39. These are consistent with prior results. High-sensitivity troponin was reviewed and was normal at 53. BNP was reviewed and was 1126.0. This is improved compared to previous result of 1552.2 from 03/05/2023. Labs: Laboratory Results - last 24 hr 03/09/23 03/09/23 06:33 06:33 Troponin I High Sens 53 B-Natriuretic Peptide 1126.0 H Radiography Chest X-Ray - ED: 1 View, Read by ED Physician, Read by Radiologist and Chronic Changes Diagnostic Testing: Clinical Impression(s) from Imaging Studies Chest X-Ray 03/09/23 06:15 IMPRESSION: Stable to slightly smaller moderate right pleural effusion, opacifying the right lung base. Stable masslike consolidation in the left perihilar region and right paratracheal region. No significant new finding as compared to the prior exam. Electronically Signed: Romulo Wiseman MD at 6:50 EDT , Abdomen/Pelvis CT 03/09/23 08:15 IMPRESSION: Limited examination due to the patient''s body habitus. Large left spelled ganglion Spigalean hernia. Ventral hernia. Diffuse subcutaneous edema and skin thickening. Findings suggestive of gallstones. Electronically Signed: Boris Ramires MD at 9:13 EDT , Portable 1 view chest x-ray was obtained. On my independent interpretation, lung aquino show a right pleural effusion. There is a masslike consolidation in the left perihilar region and right paratracheal region. There is normal cardiac silhouette. Bony thorax is normal. There is no acute change compared to previous chest x-ray dated 03/05/2023. Radiologist also interpreted the x-ray and agrees. EKG Initial EKG: Attestation: I personally reviewed and interpreted this EKG as follows: Interpretation: Atrial Fibrillation (85) and RBBB Comments: EKG was obtained. On my interpretation, it shows atrial fibrillation with a rate of 85. QRS interval is prolonged at 162 ms. QTc interval was 542 ms. There is left axis deviation at -67. There is a right bundle branch block pattern noted. There are no acute ST or T wave changes noted. Prior EKG tracings: not available for review Prior: No Prior Management Discussion w/another healthcare provider: PCP Treatment and Re-Evaluation :: I reviewed patient's prior chart from [facility]. Patient does have a history of atrial fibrillation. Patient had a prior ejection fraction of 40 to 45% on echocardiogram proximately 1 month ago. Patient was advised of her findings. Case was discussed with Dr. Marcelino. He recommended getting a CT scan of the abdomen and pelvis to look for urinary tract obstruction that would account for the patient's increasing BUN and creatinine. This was obtained. There is no evidence of obstructive uropathy. There is a left spigelian hernia that contains small bowel and colon. There is no evidence of any obstruction. This was interpreted by the radiologist and was also independently reviewed by myself. Since there is no obstructive uropathy, patient will be discharged back to the TCU. Patient was advised of her findings. Patient was instructed to follow-up with her primary care physician as scheduled. Patient understood and was agreeable with the plan. All questions were answered. Discharge Plan Triage Chief Complaint: Edema ED Provider: Jaycob Mandujano Dx/Rx/DC Orders Clinical Impression: Peripheral edema, History of lung cancer, Chronic kidney disease, stage 3b Instructions: ED Peripheral Edema, Bilateral Prescriptions: No Action albuterol 90 mcg inhaler 2 puff Q4H PRN (Reason: Shortness Of Breath) atorvastatin 20 mg tablet 20 mg PO QHS amiodarone 200 mg tablet 200 mg PO DAILY Label Comments: take 1 tablet by mouth once daily bumetanide 1 mg tablet 1 mg PO BID Label Comments: take 1 tablet by mouth daily Eliquis 5 mg tablet 5 mg PO BID Label Comments: take 1 tablet by mouth twice a day cephalexin 500 mg capsule 1 cap PO/SL 3XD cyclobenzaprine 10 mg tablet 0.5 tablet PO/SL 3XD PRN (Reason: muscle spasms) gabapentin 100 mg capsule 1 cap PO/SL BID insulin lispro 100 unit/ml pen injector See Protocol OTHER ACHS Protocol: 5. Sliding Scale Insulin High Dosing Condition: 150-209 mg/dl = 3 units Condition: 210-259 mg/dl = 6 units Condition: 260-324 mg/dl = 9 units Condition: 325-374 mg/dl = 12 units Condition: 375-409 mg/dl = 14 units Condition: 410-449 mg/dl = 16 units Condition: Greater than 449 call physician Protocol Text: - Use for Total Daily Dose of Insulin 81-120 units - Very insulin resistant or septic patients HIGH DOSING ALGORITHM Rx Instructions: 0-30U SQ with meals; 0-15U SQ at HS levothyroxine 50 mcg tablet 1 tablet PO/SL DAILY midodrine 5 mg tablet 1 tablet PO/SL 3XD pantoprazole 40 mg tablet 1 tablet PO/SL DAILY Primary Care Provider: Jarred Gupta Referrals: Jarred Gupta [Other] Fransico Marcelino Chi, MD [Med Staff - Active Staff] - Keep [facility] appointment Disposition Disposition: Inpatient Rehab Unit/Facility Discharge Location: [facility] Transitional Care Unit Discharge Date/Time: 03/09/23 09:52
--- NOTE | 2023-03-09 08:15 | CT_ITS ---
STUDY: CT ABDOMEN AND PELVIS WITHOUT CONTRAST REASON FOR EXAM: Female, 82 years old. Abdominal pain RADIATION DOSAGE (If Supplied By Facility): CTDIvol = ( 22.71 ) mGy, DLP = ( 2226.17 ) mGycm TECHNIQUE: Transaxial images were obtained from the dome of the diaphragm to the symphysis pubis without oral contrast, and without intravenous contrast. Sagittal and coronal images were reconstructed. Limited examination due to the patient''s body habitus. Individualized dose optimization techniques were used for this CT. COMPARISON: None. FINDINGS: Diffuse subcutaneous edema as well as skin thickening involving the abdominal and pelvic regions.. Right pleural effusion with right basilar infiltration and/or atelectasis. Mild increased markings at the left lung base. Minimal left pleural effusion. Coronary artery calcification. Prior CABG. Normal liver. I suspect gallstones. Normal spleen. Normal pancreas. Normal bilateral adrenal glands. Normal right kidney. Normal left kidney. Prior subtotal gastrectomy. Normal small intestine. Normal colon. The appendix is visualized and appears normal. There is diffuse atherosclerotic calcification of the abdominal aorta, without a demonstrated aneurysm. Normal inferior vena cava. Normal retroperitoneum. Normal urinary bladder. There is evidence of a large left Spigelian hernia containing small bowel as well as nondistended colon. There is also evidence of a ventral hernia. There are diffuse degenerative changes of the visualized lumbar spine. CT/Abdomen/Pelvis without Cont IMPRESSION: Limited examination due to the patient''s body habitus. Large left spelled ganglion Spigalean hernia. Ventral hernia. Diffuse subcutaneous edema and skin thickening. Findings suggestive of gallstones. Electronically Signed: Boris Ramires MD at 9:13 EDT ,
--- NOTE | 2023-03-09 09:34 | ED.RN ---
Naun Chacon updated on POC.
--- NOTE | 2023-03-09 09:35 | ED.RN ---
TCU nurse updated on plan of care
[2023-03-09 09:48] VITALS: BP 107/48
== END 2023-03-09 09:52 ==
PROVIDERS: Student in an Organized Health Care Education/Training Program; Emergency Provider Emergency Medicine; Visit Provider Emergency Medicine
DX: M79.89 Other specified soft tissue disorders (principal); N18.32 Chronic kidney disease, stage 3b; E66.9 Obesity, unspecified; Z95.1 Presence of aortocoronary bypass graft; Z87.891 Personal history of nicotine dependence
CPT/HCPCS: 99282; 71045; 74176; 83880; 84484; 93005

== ENCOUNTER 2023-03-12 11:27 | Inpatient (IN) | payer MEDICARE, SELFPAY ==
[2023-03-12] VITALS (27 sets, daily range): BP systolic 89–125; BP diastolic 25–76; PULSE 69–91; RESP 9–144; TEMP 36–36.4; O2SAT 94–100; BMI 124.9; BMI 39.2
--- NOTE | 2023-03-12 11:58 | EX.ED.DYSGE1 ---
HPI History of Present Illness Chief Complaint: General Illness Informant: patient and SNF Narrative Narrative: Patient sent here from TCU because of worsening renal function, decreasing urine output, fluid overload status, hypotension, and need for higher level of care. Sounds like the patient was admitted to [facility] being treated for cellulitis of the left lower extremity, while there she underwent a thoracentesis on the right side with over a liter removed, diagnosed with cardiorenal syndrome and has a history of congestive heart failure with preserved ejection fraction last noted at 55%, A-fib, right-sided non-small cell lung cancer, and while getting worse recently here on TCU hospice was consulted, but the patient does not want to be on hospice right now and if she needs dialysis, she wants it. Nephrology has been following with this patient and saw them today, stating that due to her creatinine rising now up to 3.41 and being volume overloaded, not being able to receive diuretics in the past 5 days due to low blood pressures, and decreasing urine output, the patient is recommended to be transferred to the inpatient setting and for this reason she was sent to the emergency department. The patient states that she has been feeling poorly for the past week, and she was short of breath this morning, but now she is doing better and feels like she is breathing relatively normally. Unknown if she had any treatments. She is on oxygen 3 L nasal cannula right now. She denies any chest discomfort today. She denies any pain right now. She feels like she needs to urinate, she has an indwelling Bergeron catheter. [facility] Medical History Acute kidney injury Chronic kidney disease, stage 3b Debility Diabetes mellitus History of lung cancer Hyperkalemia Hyperlipidemia Hypertension Left leg cellulitis Pleural effusion Sepsis Urinary retention Urinary tract infection Home Medications amiodarone 200 mg tablet 200 mg PO DAILY HEART 02/27/23 [History Last Taken 03/12/23 08:01] apixaban 5 mg tablet (Eliquis) 5 mg PO BID Anticoagulant 02/27/23 [History Last Taken 03/12/23 06:18] atorvastatin 20 mg tablet 20 mg PO QHS Cholesterol 02/27/23 [History Last Taken 03/11/23 21:05] bumetanide 1 mg tablet 1 mg PO DAILY FLUID 02/27/23 [History Last Taken Unknown] acetaminophen 500 mg tablet (Acetaminophen Extra Strength) 1,000 mg PO Q6H PRN PAIN SCORE 1-10 03/12/23 [History Last Taken 03/11/23 23:09] ceftriaxone 1 gram intravenous solution 1 g IV Q24H 03/12/23 [History Last Taken 03/12/23 10:15] cyclobenzaprine 5 mg tablet 5 mg PO TID PRN Spasms 03/12/23 [History Last Taken 03/12/23 00:42] doxepin 10 mg capsule 10 mg PO QHS SLEEP 03/12/23 [History Last Taken 03/11/23 21:05] folic acid 1 mg tablet 1 mg PO BREAKFAST SUPPLEMENT 03/12/23 [History Last Taken 03/12/23 08:01] gabapentin 100 mg capsule 100 mg PO BID SEIZURE 03/12/23 [History Last Taken 03/12/23 06:19] insulin lispro 100 unit/mL subcutaneous pen See Rx Instructions .Route .COMPLEX 03/12/23 [History Last Taken 03/12/23] levothyroxine 50 mcg tablet 50 mcg PO DAILY THYROID 03/12/23 [History Last Taken 03/12/23 06:19] magnesium hydroxide 400 mg/5 mL oral suspension 30 ml PO X1 PRN Constipation 03/12/23 [History Last Taken 03/05/23 08:49] menthol 0.44 %-zinc oxide 20.6 % topical ointment (Calmoseptine) 1 applic topical BID SKIN 03/12/23 [History Last Taken 03/12/23 06:19] metoprolol succinate 50 mg tablet,extended release 24 hr 50 mg PO DAILY HEART 03/12/23 [History Last Taken Unknown] midodrine 10 mg tablet 10 mg PO 4X/DAY 03/12/23 [History Last Taken 03/12/23 06:22] mirtazapine 7.5 mg tablet 7.5 mg PO QHS SLEEP 03/12/23 [History Last Taken 03/11/23 21:05] nystatin 100,000 unit/gram topical powder (Nystop) 1 applic topical BID SKIN 03/12/23 [History Last Taken 03/12/23 06:19] omeprazole 20 mg capsule,delayed release 20 mg PO DAILY GERD 03/12/23 [History Last Taken Unknown] pantoprazole 40 mg tablet,delayed release 40 mg PO DAILY GERD 03/12/23 [History Last Taken 03/12/23 06:19] sennosides 8.6 mg-docusate sodium 50 mg tablet (Senna with Docusate Sodium) 1 tab PO BID CONSTIPATION 03/12/23 [History Last Taken 07/01/21] Allergy/AdvReac Type Severity Reaction Status Date / Time kiwi Allergy Food Verified 03/12/23 14:14 Allergy morphine Allergy Rash Verified 03/12/23 14:14 Penicillins Allergy Rash Verified 03/12/23 14:14 shellfish derived Allergy Food Verified 03/12/23 14:14 Allergy Family History Mother CVA (cerebral vascular accident) Heart disease Father Diabetes Heart disease Surgical History History of carpal tunnel surgery of left wrist History of coronary artery bypass graft History of gastric bypass History of lung biopsy History of total knee arthroplasty Social History household members: none Smoking Status: Former smoker alcohol intake: never substance use type: does not use ROS ROS ED Constitutional Constitutional ED: Reports malaise; Denies chills or fever(s) Eyes Eyes: Denies change in vision or diplopia ENT ENT ED: Denies rhinorrhea or sore throat Cardiovascular Cardiovascular: Reports leg edema; Denies chest pain or palpitations Respiratory/Chest Respiratory/Chest: Reports cough and dyspnea Gastrointestinal Gastrointestinal: Denies abdominal pain, diarrhea, nausea or vomiting Genitourinary Genitourinary ED: Reports as per HPI and decreased urination; Denies hematuria Musculoskeletal Musculoskeletal: Denies back pain or neck pain Integumentary Denies abscess or rash Neurologic Neurologic: Denies headache(s), paresthesias or weakness Psychiatric Psychiatric: Denies anxiety or suicidal thoughts EXAM Physical Exam Const Vital Signs: 03/12/23 11:28 03/12/23 11:31 03/12/23 11:30 Temperature 97.1 F L 97.1 F L Temperature Source Temporal Temporal Pulse Rate 86 86 85 Respiratory Rate 36 H 27 H 24 H Respiratory Pattern Blood Pressure 101/56 L 98/66 101/56 L Blood Pressure Mean 71 76 71 Pulse Ox 94 94 94 Oxygen Delivery Method Nasal Cannula Nasal Cannula Nasal Cannula Oxygen Flow Rate (L/min) 3 3 3 03/12/23 11:31 03/12/23 12:06 03/12/23 12:17 Temperature Temperature Source Pulse Rate 85 Respiratory Rate 16 Respiratory Pattern Tachypnea Normal Blood Pressure Blood Pressure Mean Pulse Ox 95 Oxygen Delivery Method Nasal Cannula Oxygen Flow Rate (L/min) 3 03/12/23 12:20 03/12/23 12:21 03/12/23 13:11 Temperature 97 F L 96.8 F L Temperature Source Temporal Temporal Pulse Rate 87 87 84 Respiratory Rate 24 H 24 H 9 L Respiratory Pattern Blood Pressure 93/51 L 93/51 L 94/56 L Blood Pressure Mean 65 65 68 Pulse Ox 98 98 100 Oxygen Delivery Method Nasal Cannula Nasal Cannula Nasal Cannula Oxygen Flow Rate (L/min) 3 3 3 03/12/23 13:15 03/12/23 13:45 03/12/23 14:01 Temperature Temperature Source Pulse Rate 87 86 91 Respiratory Rate 10 L 24 H 15 Respiratory Pattern Blood Pressure 94/56 L 89/56 L 114/76 Blood Pressure Mean 69 64 82 Pulse Ox 99 99 98 Oxygen Delivery Method Oxygen Flow Rate (L/min) Positive well nourished and well developed Constitutional Narrative: Morbid obesity. Keenly alert, conversive. General Appearance ED: well developed and NAD HEENT Reports moist mucous membranes normocephalic and atraumatic Eyes PERRL and EOMs intact bilaterally Neck full ROM and supple Resp normal respiratory effort Resp Narrative: Rales and wheezes bibasilar, clear at apices. Symmetric breath sounds bilaterally. Trachea midline. Cardio regular rate and regular rhythm Rate: Negative for tachycardic Heart Sounds: murmur systolic III/ soft left sternal border GI non-tender and non-distended GI Narrative: Significant midline postsurgical scarring of the abdominal wall without any acute erythema or abnormality on inspection otherwise, benign abdomen. Limited by obesity. Auscultation: normoactive bowel sounds Palpation: soft Back/Spine no CVA tenderness General Back: other FROM Extremity normal to inspection Extremity Narrative: Left foot wound wrapped in a dressing General Extremety ED: Yes edema; Negative for pulses abnormal or tenderness General Extremity: edema bilateral upper extremity severe and lower extremity Details: severe; Negative for pulses abnormal Neuro oriented x3, CN's II-XII intact bilaterally and no sensory deficits noted Sensorium / Orientation: awake and alert Motor Exam: general weakness Psych mental status grossly normal Skin no rashes or lesions noted MDM MDM MDM Narrative Medical decision making narrative: Patient's MAP's are hovering around 60-65, her last blood pressure here 94/56. She was initially 101/56. I am not giving her any significant amount of fluid because she is extremely fluid overloaded. She is mentating well. I reviewed labs from earlier today from TCU, I do not feel like they need to be repeated but I did add a troponin which is within normal limits, EKG shows A-fib with a right bundle branch block and no acute injury pattern, and I repeated her chest x-ray, it shows what appears to be a mass versus infiltrate right upper lobe as well as a consolidated pleural effusion, she had a CT scan 5 days ago and the findings are similar and I do not think that needs to be repeated. She is breathing relatively well right now. She is requiring oxygen by nasal cannula. Her urine appears to still be infected I sent that for culture, I think she should be admitted to the ICU. I discussed with eyeletter Dr. Arias who agrees that pressors may be needed but agrees with admitting the patient for further evaluation for now. Discussed with hospitalist for ICU admission and further management. Last BP 114/76. She has been labeled as being sepsis syndrome for the last several days in TCU, I do not think there is anything acutely life-threatening to manage right now, I am holding off on IV fluids because she is fluid overloaded and has congestive heart failure. History & Record Review Additional record(s) reviewed:: Prior inpatient record, Prior outpatient record (Nephrology consult from today in TCU) and Prior labs Lab Data Attestation: I reviewed the patient's lab results. Labs: Laboratory Results - last 24 hr 03/12/23 03/12/23 12:15 12:15 Troponin I High Sens 42 Urine Color Yellow Urine Clarity Sl. Cloudy Urine pH 5.0 Ur Specific [place] 1.025 Urine Protein 100 H Urine Glucose (UA) Normal Urine Ketones 5 H Urine Occult Blood 250 H Urine Nitrite Negative Urine Bilirubin 1 H Urine Urobilinogen Normal Ur Leukocyte Esterase 500 H Urine RBC 50-100 SEEN Urine WBC >100 SEEN Ur Squamous Epith Cells 0-5 SEEN Urine Bacteria 1+ Urine Mucus 2+ Urine Yeast 3+ Radiography Diagnostic Testing: Clinical Impression(s) from Imaging Studies Chest X-Ray 03/12/23 12:20 IMPRESSION: No significant interval change. Electronically Signed: Riddhi Corral MD at 12:46 EDT , Rhythm Strip Rhythm Strip: A-fib Rate: 85 Ectopy: None EKG Initial EKG: Attestation: I personally reviewed and interpreted this EKG as follows: Interpretation: No Acute Injury Pattern, Atrial Fibrillation and RBBB Prior EKG tracings: not available for review Management Discussion w/another healthcare provider: Hospitalist and [employer] (CCM) Discharge Plan Dx/Rx/DC Orders Clinical Impression: Acute renal failure (ARF), Chronic kidney disease, stage 3b, Pleural effusion, Renal anasarca, CHF (congestive heart failure), UTI due to Klebsiella species, History of lung cancer, Sepsis, Transient hypotension Disposition Disposition: Acute Care Hospital [facility] Discharge Date/Time: 03/12/23 15:31
--- NOTE | 2023-03-12 12:03 | NURSING ---
NO OLD EKGS
[2023-03-12] MEDS: Ipratropium/Albuterol Sulfate 3 ML AMPUL.NEB INHALATION (12:04)
--- NOTE | 2023-03-12 12:20 | RAD_ITS ---
HISTORY: sob. TECHNIQUE: XR Chest 1 View. COMPARISON: 03/09/2023. FINDINGS: LINES/TUBES: Left chest wall port with catheter tip at the level of the superior vena cava. CARDIOMEDIASTINAL BORDERS: Stable cardiomegaly with midline sternotomy and coronary artery bypass graft. LUNGS: Right perihilar mass or masslike consolidation again seen with bibasilar atelectasis or consolidation. PLEURA: Loculated moderate right pleural effusion again seen. RAD/Chest 1 View (Portable) IMPRESSION: No significant interval change. Electronically Signed: Riddhi Corral MD at 12:46 EDT ,
[2023-03-12 12:39] LABS: Color, Urine Yellow (Yellow); Glucose, Dipstick Normal (Normal); Ketone-Dipstick 5 mg/dl (Negative); Leukocyte Esterase-Dipstick 500 /ul (Negative); Nitrite-Dipstick Negative (Negative); Occult Blood-Urine 250 /ul (Negative); Protein-Dipstick 100 mg/dl (Negative); Specific Gravity, Urine 1.025 (1.002-1.030); Urine Clarity Sl. Cloudy (Clear); Urine Urobilinogen Normal (Normal)
[2023-03-12 12:43] LABS: Urine Bilirubin Dipstick 1 mg/dL (Negative)
[2023-03-12 12:46] LABS: Red Blood Cells-Urine 50-100 SEEN /hpf (0-5); Squamous Epithelial Cells - UA 0-5 SEEN /hpf (5-10); White Blood Cells >100 SEEN /hpf (0-5)
[2023-03-12 12:47] LABS: Bacteria 1+ /hpf (None Seen); Mucous, Urine 2+ /hpf (<or=2+); Troponin-I HS 42 pg/mL (3.0-54.0); Yeast-Urine 3+ /hpf (None Seen)
--- NOTE | 2023-03-12 14:29 | NURSING ---
DR AYALA FOR DR DOOLEY
--- NOTE | 2023-03-12 14:46 | NURSING ---
ICU AYALA ARF, HYPOTENSION,ANASARCA/CHF, SEPSIS
--- NOTE | 2023-03-12 15:05 | NURSING ---
ICU 5
--- NOTE | 2023-03-12 15:16 | PCM.HP.STD ---
HPI - General General Date of Admission: 03/12/23 Date of Service: 03/12/23 Chief Complaint: Worsening renal fxn, anasarca HPI Narrative RAMÓN FARNSWORTH, is a 82 F with history of CKD stage IIIb, hypothyroidism, hypertension, A-fib, type 2 diabetes mellitus, previous lung cancer, orthostatic hypotension on midodrine who presented to [facility] 03/12/2023 as a transfer from the transitional care unit due to worsening hypotension with fluid overload and worsening renal function. History taken primarily from report and chart as patient tired/frustrated/had difficulty answering questions on exam. Patient had been in [facility] on 02/08/2023 for sepsis and hyperkalemia, was found to have a Klebsiella UTI as well as left lower extremity cellulitis and got Levaquin and Vanco at the time, difficult to assess but seems she was de-escalated to oral Keflex. Was transferred to the TCU for rehab and had progressively worsening kidney function, she is unable to be diuresed and her Bumex held for the past several days due to hypotension and she had escalating doses of midodrine without success so she was transferred to the ED. In the ED she is found to be hypotensive and was deemed appropriate for ICU so hospitalist consulted for admission. [facility] Medical History Acute kidney injury Chronic kidney disease, stage 3b Debility Diabetes mellitus History of lung cancer Hyperkalemia Hyperlipidemia Hypertension Left leg cellulitis Pleural effusion Sepsis Urinary retention Urinary tract infection Home Medications amiodarone 200 mg tablet 200 mg PO DAILY HEART 02/27/23 [History Last Taken 03/12/23 08:01] apixaban 5 mg tablet (Eliquis) 5 mg PO BID Anticoagulant 02/27/23 [History Last Taken 03/12/23 06:18] atorvastatin 20 mg tablet 20 mg PO QHS Cholesterol 02/27/23 [History Last Taken 03/11/23 21:05] bumetanide 1 mg tablet 1 mg PO DAILY FLUID 02/27/23 [History Last Taken Unknown] acetaminophen 500 mg tablet (Acetaminophen Extra Strength) 1,000 mg PO Q6H PRN PAIN SCORE 1-10 03/12/23 [History Last Taken 03/11/23 23:09] ceftriaxone 1 gram intravenous solution 1 g IV Q24H 03/12/23 [History Last Taken 03/12/23 10:15] cyclobenzaprine 5 mg tablet 5 mg PO TID PRN Spasms 03/12/23 [History Last Taken 03/12/23 00:42] doxepin 10 mg capsule 10 mg PO QHS SLEEP 03/12/23 [History Last Taken 03/11/23 21:05] folic acid 1 mg tablet 1 mg PO BREAKFAST SUPPLEMENT 03/12/23 [History Last Taken 03/12/23 08:01] gabapentin 100 mg capsule 100 mg PO BID SEIZURE 03/12/23 [History Last Taken 03/12/23 06:19] insulin lispro 100 unit/mL subcutaneous pen See Rx Instructions .Route .COMPLEX 03/12/23 [History Last Taken 03/12/23] levothyroxine 50 mcg tablet 50 mcg PO DAILY THYROID 03/12/23 [History Last Taken 03/12/23 06:19] magnesium hydroxide 400 mg/5 mL oral suspension 30 ml PO X1 PRN Constipation 03/12/23 [History Last Taken 03/05/23 08:49] menthol 0.44 %-zinc oxide 20.6 % topical ointment (Calmoseptine) 1 applic topical BID SKIN 03/12/23 [History Last Taken 03/12/23 06:19] metoprolol succinate 50 mg tablet,extended release 24 hr 50 mg PO DAILY HEART 03/12/23 [History Last Taken Unknown] midodrine 10 mg tablet 10 mg PO 4X/DAY 03/12/23 [History Last Taken 03/12/23 06:22] mirtazapine 7.5 mg tablet 7.5 mg PO QHS SLEEP 03/12/23 [History Last Taken 03/11/23 21:05] nystatin 100,000 unit/gram topical powder (Nystop) 1 applic topical BID SKIN 03/12/23 [History Last Taken 03/12/23 06:19] omeprazole 20 mg capsule,delayed release 20 mg PO DAILY GERD 03/12/23 [History Last Taken Unknown] pantoprazole 40 mg tablet,delayed release 40 mg PO DAILY GERD 03/12/23 [History Last Taken 03/12/23 06:19] sennosides 8.6 mg-docusate sodium 50 mg tablet (Senna with Docusate Sodium) 1 tab PO BID CONSTIPATION 03/12/23 [History Last Taken 07/01/21] Allergy/AdvReac Type Severity Reaction Status Date / Time kiwi Allergy Food Verified 03/12/23 14:14 Allergy morphine Allergy Rash Verified 03/12/23 14:14 Penicillins Allergy Rash Verified 03/12/23 14:14 shellfish derived Allergy Food Verified 03/12/23 14:14 Allergy Family History Mother CVA (cerebral vascular accident) Heart disease Father Diabetes Heart disease Surgical History History of carpal tunnel surgery of left wrist History of coronary artery bypass graft History of gastric bypass History of lung biopsy History of total knee arthroplasty Social History household members: none Smoking Status: Former smoker alcohol intake: never substance use type: does not use ROS ROS Narrative Patient poor historian, unable to obtain a consistent ROS Vital Signs Vital Signs Vital Signs: 03/12/23 11:28 03/12/23 11:31 03/12/23 11:30 Temperature 97.1 F L 97.1 F L Temperature Source Temporal Temporal Pulse Rate 86 86 85 Respiratory Rate 36 H 27 H 24 H Respiratory Pattern Blood Pressure 101/56 L 98/66 101/56 L Blood Pressure Mean 71 76 71 Pulse Ox 94 94 94 Oxygen Delivery Method Nasal Cannula Nasal Cannula Nasal Cannula Oxygen Flow Rate (L/min) 3 3 3 03/12/23 11:31 03/12/23 12:06 03/12/23 12:17 Temperature Temperature Source Pulse Rate 85 Respiratory Rate 16 Respiratory Pattern Tachypnea Normal Blood Pressure Blood Pressure Mean Pulse Ox 95 Oxygen Delivery Method Nasal Cannula Oxygen Flow Rate (L/min) 3 03/12/23 12:20 03/12/23 12:21 03/12/23 13:11 Temperature 97 F L 96.8 F L Temperature Source Temporal Temporal Pulse Rate 87 87 84 Respiratory Rate 24 H 24 H 9 L Respiratory Pattern Blood Pressure 93/51 L 93/51 L 94/56 L Blood Pressure Mean 65 65 68 Pulse Ox 98 98 100 Oxygen Delivery Method Nasal Cannula Nasal Cannula Nasal Cannula Oxygen Flow Rate (L/min) 3 3 3 03/12/23 13:15 03/12/23 13:45 03/12/23 14:01 Temperature Temperature Source Pulse Rate 87 86 91 Respiratory Rate 10 L 24 H 15 Respiratory Pattern Blood Pressure 94/56 L 89/56 L 114/76 Blood Pressure Mean 69 64 82 Pulse Ox 99 99 98 Oxygen Delivery Method Oxygen Flow Rate (L/min) Weight Weight: 299.8 kg Body Mass Index (BMI) 124.9 Physical Exam Narrative General: Sitting up, has difficulty with orientation questions, appears uncomfortable HEENT: Atraumatic, normocephalic Eyes: Anicteric, normal conjunctiva, extraocular movements grossly intact, dry mucous membranes Neck: Supple Respiratory: Diminished bilaterally, also somewhat difficult to assess secondary to body habitus Cardiovascular: Regular rate and rhythm GI: Soft, nontender, nondistended Extremities: Left lower extremity wrapped with weeping Musculoskeletal: Moving all extremities Neuro: No overt focal neurological deficits Skin: Left lower extremity wrapped Psych: Attempts to be cooperative Results Lab / Micro Data Result Diagrams: 03/12/23 12:15 Labs: Laboratory Results - last 24 hr 03/12/23 12:15: Troponin I High Sens 42 03/12/23 12:15: Urine Color Yellow, Urine Clarity Sl. Cloudy, Urine pH 5.0, Ur Specific [place] 1.025, Urine Protein 100 H, Urine Glucose (UA) Normal, Urine Ketones 5 H, Urine Occult Blood 250 H, Urine Nitrite Negative, Urine Bilirubin 1 H, Urine Urobilinogen Normal, Ur Leukocyte Esterase 500 H, Urine RBC 50-100 SEEN, Urine WBC >100 SEEN, Ur Squamous Epith Cells 0-5 SEEN, Urine Bacteria 1+, Urine Mucus 2+, Urine Yeast 3+ Rhythm Strip Rhythm Strip: A-fib Rate: 85 Ectopy: None Radiology Impression Chest X-Ray 03/12/23 12:20 IMPRESSION: No significant interval change. Electronically Signed: Riddhi Corral MD at 12:46 EDT , Assessment & Plan Assessment/Plan (1) Acute renal failure (ARF): (2) Transient hypotension: (3) Chronic kidney disease, stage 3b: (4) History of lung cancer: PLAN: Plan #anasarca -Admitted to ICU on pressors and IV diuresis begun -Daily weights, I's and O's -We will order echocardiogram -troponin 42, BNP 1511 up from 1126 on 03/09 #NICHOLAS on CKD stage IIIb -Admitted to ICU, will begin diuresis -Nephrology consult -Urine studies -Had renal ultrasound 03/08 with nonspecific renal parenchymal disease with no obstruction #Hypercapnia -Unclear etiology, may have component of obesity hypoventilation syndrome and/for RACH -Patient placed on BiPAP #Hypotension -Appears to be on midodrine at baseline -Patient has been refractory however required ICU placement and started on pressors especially to allow for diuresis -Lactic acid within normal limits #Possible UTI -Blood and urine cultures obtained, broad-spectrum antibiotics, will avoid fluids due to fluid overload -Pro-Sudhir 0.25, CRP 21, ESR 17 #LLE cellulitis -Broad-spectrum antibiotics #Anemia of unclear chronicity -Has been stable since 03/06 #Hyponatremia -Possibly secondary to fluid overload, urine and serum studies pending #Atrial fibrillation -Hold beta-jeancarlos but will continue Amio and Eliquis #Hypothyroidism -Continue Synthroid #Type 2 diabetes mellitus -Glucose checks and sliding scale insulin #Right pleural effusion and left perihilar masslike consolidation with history of lung cancer -Had thoracentesis previously at another facility which was reported to be transudate -Was seen on chest x-ray 03/09, chest x-ray appeared stable today 03/12/2023 -Spoke with son at length and patient reportedly was diagnosed with lung cancer 2 years ago and had chemo and radiation, had a recent biopsy and follows with Dr. Hyde but they do not know the results yet to know she had recurrent cancer. Has port present on upper left chest. He also reports she has had 4 total thoracentesis with 2 recently #History of CAD status post CABG -Continue atorvastatin #History of prior subtotal gastrectomy -Monitor nutritional status #DVT ppx: On Estelaquis Eliane Rosenbaum MD Time spent in the patient's overall evaluation,decision-making process, review of diagnostic data, adjustment of management, discussion with other providers, nursing nursing and ancillary staff involved in patient's care documentation, 77 minutes Charges/Coding Visit Charges Inpatient E&M: 50760 Init Hosp L3
--- NOTE | 2023-03-12 15:55 | PCM.HOSP.N ---
Hospitalist Note Spoke with patient's son Oswaldo given patient endorsed her CODE STATUS is DNR/DNI but given she is slightly confused wanted to verify that this was consistent with her wishes (appears in TCU she also was agreeable to DNR/DNI.) Her son did reiterate that she is DO NOT INTUBATE/DO NOT RESUSCITATE and that is consistent with her wishes that we can presently continue management with Levophed, antibiotics, all other interventions and he is willing to reevaluate in 24 hours pending progress.
[2023-03-12 16:20] LABS: Blood Gas Specimen Type VEN; O2 Delivery Device Cannula; VBG BASE EXCESS 6 mmol/L (-1.0-3.5); VBG Bicarbonate 33 mmol/L (22-26); VBG PO2 35 mmHg (25-40); VBG SO2 54 % (50-70); VBG TCO2 36 mmol/L (23-33); VBG pH 7.23 (7.32-7.42)
[2023-03-12 16:52] LABS: Erythrocyte Sedimentation Rate 17 mm/hr (0-30)
[2023-03-12 17:00] LABS: International Normalized Ratio 1.8; Procalcitonin 0.25 ng/mL (0.00-0.09); Prothrombin Time (Protime)PT. 21.1 SECONDS (11.7-14.9)
[2023-03-12 17:08] LABS: BNP,B-Type NATRIURETIC PEPTIDE 1511.3 pg/mL (0-100)
[2023-03-12 17:21] LABS: Lactic Acid 1.3 mmol/L (0.4-1.9)
[2023-03-12 17:40] LABS: ALB/GLOB Ratio 0.7 RATIO (0.9-2.4); AST(SGOT) 40 U/L (15-37); Alanine Aminotransfer ALT/SGPT 27 U/L (13-56); Albumin, Serum 2.2 g/dL (3.2-5.0); Alkaline Phosphatase 174 U/L (45-117); Anion Gap 10 (5-15); BUN 79 mg/dL (7-18); BUN/Creat Ratio 25.4 RATIO (10-20); Calcium,Total 7.7 mg/dL (8.5-10.1); Chloride 90 mmol/L (98-107); Creatinine, Serum 3.11 mg/dL (0.55-1.02); EST Glomerular Filtration Rate 15 mL/min (>60); Est Glom Filt Rate - Afr Amer 19 mL/min (>60); Estimated Creatinine Clearance 16.13 ml/min; Globulin 3.3 g/dL (2.2-4.2); Glucose 263 mg/dL (74-106); Magnesium 2.5 mg/dL (1.6-2.6); Potassium 4.8 mmol/L (3.5-5.1); Protein, Total 5.5 g/dL (6.4-8.2); Sodium Level 128 mmol/L (136-145)
[2023-03-12] MEDS: Insulin Lispro 100 UNIT/ML INSULN.PEN SC ×2 (18:07→23:16)
--- NOTE | 2023-03-12 18:11 | PCM.RX.CS ---
Consult Type of Consult: New start Suspected Infection: Skin/Soft tissue, Other Labs: Sodium 128 mmol/L (136-145) L 03/12/23 12:15 Potassium 4.8 mmol/L (3.5-5.1) 03/12/23 12:15 Chloride 90 mmol/L (98-107) L 03/12/23 12:15 Carbon Dioxide 28.0 mmol/L (21.0-32.0) 03/12/23 12:15 Anion Gap 10 (5-15) 03/12/23 12:15 BUN 79 mg/dL (7-18) H 03/12/23 12:15 Creatinine 3.11 mg/dL (0.55-1.02) H 03/12/23 12:15 Est GFR (MDRD) Af Amer 19 mL/min (>60) L 03/12/23 12:15 Est GFR (MDRD) Non-Af 15 mL/min (>60) L 03/12/23 12:15 BUN/Creatinine Ratio 25.4 RATIO (10-20) H 03/12/23 12:15 Glucose 263 mg/dL (74-106) H 03/12/23 12:15 Goal Trough: 15-20 mcg/mL Pharmacy Plan for Drug Dosing: Pharmacy Service will continue to monitor and adjust dosing as required. NEW START IV VANCOMYCIN Consulting Physician: Dr. Rosenbaum Indication: UTI/cellulitis Goal Trough: 15-20 SrCr:3.11 CrCl: 21ml/min Comments: Loading dose of 2000mg IV x1 ordered and administered 03/12/23 @1701 Vancomycin Dose: Based off trend of kidney function, will hold on scheduling dose at this time. Once kidney function stabilizes, can consider schedule dosing. At this time, will dose based off random levels. Pending Level: Random level 03/14/23 with AM labs
[2023-03-12 18:22] LABS: Bedside Glucose 242 mg/dL (74-106)
--- NOTE | 2023-03-12 18:26 | ECHOCS_ITS ---
Reason For Study: other Procedure This was a 2D Doppler, Color Flow transthoracic echocardiogram. Technically difficult study due to patients body habitus. Contrast injection was performed. Exam performed portable in ICU/CCU. Left Ventricle Normal LV size. Mild concentric left ventricular hypertrophy. The left ventricular ejection fraction is 50 %. Left ventricle dyssynchronous septal motion. Septal motion consistent with right ventricular volume and pressure overload. Right Ventricle Moderately dilated right ventricle. Moderately severe global right ventricular systolic dysfunction. Atria The left atrium is severely enlarged. The right atrium is not well visualized. Mitral Valve Mild diffuse mitral valve thickening. Mild (1+) mitral valve insufficiency. Tricuspid Valve Severe (4+) tricuspid valve insufficiency. Right ventricular systolic pressure estimated to be 57 mmHg. Aortic Valve Trisinus/trileaflet aortic valve. Trivial aortic valve insufficiency. Pulmonic Valve The pulmonic valve is not well visualized. Great Vessels Mildly dilated aortic root. Pericardium/Pleural Trivial pericardial effusion. Medication Diluted definity 3ml given slow IV push to enhance endocardial definition. MMode/2D Measurements & Calculations LVIDd: 4.8 cm IVSd: 1.3 cm Ao root diam: 3.5 cm LVIDs: 4.1 cm LVPWd: 0.90 cm LA dimension: 4.7 cm FS: 15.4 % LAV(MOD-sp4): 56.3 ml LVAd ap4: 29.6 cm2 SV(MOD-sp4): 47.8 ml LVLd ap4: 7.8 cm EDV(MOD-sp4): 92.8 ml EDV(sp4-el): 95.7 ml LVAs ap4: 20.5 cm2 LVLs ap4: 7.6 cm ESV(MOD-sp4): 44.9 ml ESV(sp4-el): 46.9 ml EF(MOD-sp4): 51.6 % EF(sp4-el): 51.0 % SV(sp4-el): 48.7 ml LA A4 area: 21.1 cm2 Doppler Measurements & Calculations MV E max mainor: 121.2 cm/sec Lat Peak E' Mainor: 8.9 cm/sec Med Peak E' Mainor: 6.0 cm/sec E/E' lat: 13.6 E/E' med: 20.1 MV V2 max: 133.0 cm/sec Ao V2 max: 116.9 cm/sec LV V1 max: 70.4 cm/sec MV max P.1 mmHg Ao max P.5 mmHg LV V1 max P.0 mmHg MV V2 mean: 65.0 cm/sec Ao V2 mean: 79.0 cm/sec LV V1 mean P.1 mmHg MV mean P.2 mmHg Ao mean P.9 mmHg LV V1 mean: 48.3 cm/sec MV V2 VTI: 23.4 cm Ao V2 VTI: 20.0 cm LV V1 VTI: 13.3 cm AV (velocity ratio): 0.66 MR max mainor: 407.1 cm/sec PA V2 max: 103.5 cm/sec PI end-d mainor: 125.0 cm/sec MR max P.3 mmHg PA V2 mean: 68.9 cm/sec TR max mainor: 343.3 cm/sec TR max P.2 mmHg ECHO/Echo Complete W/ Contrast Interpretation Summary Technically difficult study with suboptimal images. Mild concentric left ventricular hypertrophy. The left ventricular ejection fraction is 50 %. Left ventricle dyssynchronous septal motion. Septal motion consistent with righ t ventricular volume and pressure overload. Moderately dilated right ventricle. Moderately severe global right ventricular systolic dysfunction. The left atrium is severely enlarged. Mild diffuse mitral valve thickening. Mild (1+) mitral valve insufficiency. Severe (4+) tricuspid valve insufficiency. Right ventricular systolic pressure estimated to be 57 mmHg. Mildly dilated aortic root. Ordering Physician: Eliane Rosenbaum Performed By: Viktor Petit RCS
[2023-03-12] MEDS: Furosemide 40 MG/4 ML Vial IV (19:05)
[2023-03-12 19:35] LABS: Osmolality, Serum 304 mOsm/KG (280-301)
[2023-03-12 19:35] LABS: Osmolality, Urine 315 mOsm/KG
[2023-03-12 19:41] LABS: Urea Nitrogen, Urine 276 mg/dL (NO RANGE EST.); Urine Chloride 19 mmol/L (Not Establ.); Urine Sodium 5 mmol/L (Not Establ.)
[2023-03-12] MEDS: Atorvastatin Calcium 20 MG Tablet PO (23:13)
[2023-03-12] MEDS: APIXABAN 5 MG TABLET PO (23:13)
[2023-03-12 23:45] LABS: Bedside Glucose 246 mg/dL (74-106)
[2023-03-13] VITALS (28 sets, daily range): BP systolic 82–126; BP diastolic 50–95; PULSE 73–88; RESP 12–28; TEMP 35.6–37.1; O2SAT 90–100; BMI 40.4
[2023-03-13] MEDS: MELATONIN 3 MG TABLET PO ×2 (02:48→21:17)
[2023-03-13] MEDS: Acetaminophen 325 MG Tablet 650 MG PO (05:21)
[2023-03-13] MEDS: Levothyroxine 50 MCG Tablet PO (05:22)
[2023-03-13 05:46] LABS: Vitamin B12 1139 pg/mL (211-911)
[2023-03-13 06:02] LABS: ALB/GLOB Ratio 0.7 RATIO (0.9-2.4); AST(SGOT) 43 U/L (15-37); Alanine Aminotransfer ALT/SGPT 26 U/L (13-56); Albumin, Serum 2.2 g/dL (3.2-5.0); Alkaline Phosphatase 160 U/L (45-117); Anion Gap 6 (5-15); BUN 81 mg/dL (7-18); BUN/Creat Ratio 25.3 RATIO (10-20); Calcium,Total 7.9 mg/dL (8.5-10.1); Chloride 92 mmol/L (98-107); EST Glomerular Filtration Rate 15 mL/min (>60); Est Glom Filt Rate - Afr Amer 18 mL/min (>60); Estimated Creatinine Clearance 15.67 ml/min; Globulin 3.2 g/dL (2.2-4.2); Glucose 239 mg/dL (74-106); Protein, Total 5.4 g/dL (6.4-8.2); Sodium Level 129 mmol/L (136-145); T4 Free Direct 1.02 ng/dL (0.76-1.46); Thyroid Stim Hormone (TSH) 8.94 uIU/mL (0.358-3.74)
[2023-03-13] MEDS: Insulin Lispro 100 UNIT/ML INSULN.PEN SC ×3 (06:30→17:26)
[2023-03-13 06:41] LABS: Erythrocyte Sedimentation Rate 11 mm/hr (0-30)
[2023-03-13 06:47] LABS: Absolute Lymphocyte Count 0.33 X10^3/uL (0.83-4.51); Absolute Neutrophil Count 6.5 X10^3/uL (2.0-7.7); Basophil# 0.01 X10^3/uL; Basophil% 0.1 % (0-1); Eosinophil# 0.01 X10^3/uL; Eosinophils% 0.1 % (0-5); Hematocrit 26.6 % (37-47); Hemoglobin 7.8 g/dL (12.0-15.0); Lymphocyte # 0.33 X10^3/ul (0.83-4.51); Lymphocyte % 4.3 % (19-41); Mean Corp Hgb Conc 29.3 g/dL (32-36); Mean Corpuscular Hgb 24.7 pg (27.0-32.0); Mean Corpuscular Volume 84.2 fL (81-99); Mean Platelet Vol. 10.9 fl (6.2-12.0); Monocyte# 0.68 X10^3/uL; Monocyte% 8.9 % (0-10); NRBC Flagged by Analyzer 2.2 % (0-5); Neutrophil # 6.52 X10^3/uL (2.7-7.7); Neutrophil % 85.6 % (47-70); POSITIVE DIFFERENTIAL YES; Platelet Count 279 K/mm3 (150-450); RBC Distribution Width CV 16.8 % (11.6-14.6); RBC Distribution Width SD 50.6 fl (35.1-43.9); Red Blood Count 3.16 M/mm3 (4.2-5.4); White Blood Count 7.6 K/mm3 (4.4-11.0)
[2023-03-13 06:48] LABS: Differential Indicated SCAN CRITERIA MET
[2023-03-13 06:57] LABS: Differential Comment SCANNED
--- NOTE | 2023-03-13 07:43 | PCM.PN.HOSP ---
Reason for Visit Reason for Visit: Diagnoses Hypotension, unspecified (03/12/23) Acute kidney failure, unspecified (03/12/23) Chronic kidney disease, stage 3b (03/12/23) Personal history of other malignant neoplasm of bronchus and lung (03/12/23) Subjective Subjective Patient resting in bed, reports she feels blah and not much different from yesterday but is more awake and alert and responsive Objective Data Objective Data Vital Signs: Vital Signs Temp Pulse Resp BP Pulse Ox O2 Del Method O2 Flow Rate 97.6 F L 81 15 96/56 L 100 Nasal Cannula 3 03/13/23 00:00 03/13/23 06:00 03/13/23 06:00 03/13/23 06:00 03/13/23 06:00 03/13/23 06:00 03/13/23 06:00 FiO2 30 03/12/23 22:55 Oxygen Flow Rate (L/min) 3 Oxygen Delivery Method Nasal Cannula Weight: 131.1 kg Body Mass Index (BMI) 40.4 Intake & Output: Intake and Output for Last 24 Hours 03/11/23 03/12/23 03/13/23 23:59 23:59 23:59 Intake Total 100 / 300 260 / 260 Output Total 350 / 350 Balance 100 / 300 -90 / -90 Lab / Micro Data Result Diagrams: 03/13/23 05:12 03/13/23 05:12 Labs: Laboratory Results - last 24 hr 03/12/23 06:53: ESR 17 03/12/23 06:53: B-Natriuretic Peptide 1511.3 H 03/12/23 12:15: Troponin I High Sens 42 03/12/23 12:15: Urine Color Yellow, Urine Clarity Sl. Cloudy, Urine pH 5.0, Ur Specific [place] 1.025, Urine Protein 100 H, Urine Glucose (UA) Normal, Urine Ketones 5 H, Urine Occult Blood 250 H, Urine Nitrite Negative, Urine Bilirubin 1 H, Urine Urobilinogen Normal, Ur Leukocyte Esterase 500 H, Urine RBC 50-100 SEEN, Urine WBC >100 SEEN, Ur Squamous Epith Cells 0-5 SEEN, Urine Bacteria 1+, Urine Mucus 2+, Urine Yeast 3+ 03/12/23 12:15: Sodium 128 L, Potassium 4.8, Chloride 90 L, Carbon Dioxide 28.0, Anion Gap 10, BUN 79 H, Creatinine 3.11 H, Estim Creat Clear Calc 16.13, Est GFR (MDRD) Af Amer 19 L, Est GFR (MDRD) Non-Af 15 L, BUN/Creatinine Ratio 25.4 H, Glucose 263 H, Calcium 7.7 L, Magnesium 2.5, Total Bilirubin 0.30, AST 40 H, ALT 27, Alkaline Phosphatase 174 H, C-React Prot Ext Range 21.10 H, Total Protein 5.5 L, Albumin 2.2 L, Globulin 3.3, Albumin/Globulin Ratio 0.7 L 03/12/23 12:15: Phosphorus 7.0 H 03/12/23 16:12: PT 21.1 H, INR 1.8 03/12/23 16:12: Lactic Acid 1.3 03/12/23 16:12: Procalcitonin 0.25 H 03/12/23 16:12: Serum Osmolality 304 H 03/12/23 17:00: Urine Osmolality 315, Ur Random Sodium 5, Urine Potassium 27.0, Urine Chloride 19, Urine Urea Nitrogen 276 03/12/23 18:05: POC Glucose 242 H 03/12/23 23:15: POC Glucose 246 H 03/13/23 05:12: WBC 7.6, RBC 3.16 L, Hgb 7.8 L, Hct 26.6 L, MCV 84.2, MCH 24.7 L, MCHC 29.3 L, RDW Std Deviation 50.6 H, RDW Coeff of Lola 16.8 H, Plt Count 279, MPV 10.9, Immature Gran % (Auto) 1.000 H, Neut % (Auto) 85.6 H, Lymph % (Auto) 4.3 L, [place] % (Auto) 8.9, Eos % (Auto) 0.1, Baso % (Auto) 0.1, Absolute Neuts (auto) 6.5, Absolute Lymphs (auto) 0.33 L, Nucleated RBC % 2.2, Differential Comment SCANNED, ESR 11 03/13/23 05:12: Sodium 129 L, Potassium 5.0, Chloride 92 L, Carbon Dioxide 31.0, Anion Gap 6, BUN 81 H, Creatinine 3.20 H, Estim Creat Clear Calc 15.67, Est GFR (MDRD) Af Amer 18 L, Est GFR (MDRD) Non-Af 15 L, BUN/Creatinine Ratio 25.3 H, Glucose 239 H, Calcium 7.9 L, Total Bilirubin 0.40, AST 43 H, ALT 26, Alkaline Phosphatase 160 H, C-React Prot Ext Range 27.20 H, Total Protein 5.4 L, Albumin 2.2 L, Globulin 3.2, Albumin/Globulin Ratio 0.7 L, TSH 8.94 H, Free T4 1.02 03/13/23 05:12: Vitamin B12 1139 H Micro: Microbiology 03/12/23 12:15 Urine Catheter - Bergeron Urine Culture - Preliminary Gram positive organism ABG Data ABG results: ABG 03/12/23 16:13 Specimen Type MIGDALIA VBG pH 7.23 L VBG pO2 35 VBG HCO3 33 H VBG Total CO2 36 H VBG O2 Sat (Calc) 54 VBG Base Excess 6 H POC Mix VBG pCO2 Pt Tmp 79.0 H* O2 Delivery Device Cannula Liter Flow 2.0 Crit Call To/Read Back Yes Blood Gas Notified Whom rosenbaum Blood Gas Notified Time 16:15:45 Radiography Diagnostic Testing: Radiology Impression Chest X-Ray 03/12/23 12:20 IMPRESSION: No significant interval change. Electronically Signed: Riddhi Corral MD at 12:46 EDT , Rhythm Strip Rhythm Strip: A-fib Rate: 85 Ectopy: None Physical Exam Narrative General: Alert, no apparent distress HEENT: Atraumatic, normocephalic Eyes: Anicteric, normal conjunctiva, extraocular movements grossly intact Neck: Supple Respiratory: Diminished bilaterally but largely secondary to body habitus,, normal respiratory effort Cardiovascular: Regular rate GI: Soft, nontender, nondistended Extremities: Left lower extremity wrapped Musculoskeletal: Moving all extremities Neuro: No overt focal neurological deficits Skin: Left lower extremity wrapped Psych: Cooperative Assessment & Plan Assessment/Plan (1) Acute renal failure (ARF): (2) Transient hypotension: (3) Chronic kidney disease, stage 3b: (4) History of lung cancer: PLAN: Plan #NICHOLAS on CKD stage IIIb -Admitted to ICU, will begin diuresis -Nephrology consult -Urine studies -Had renal ultrasound 03/08 with nonspecific renal parenchymal disease with no obstruction -03/13: Slightly worsened today, Lasix drip, wean pressors as tolerated, continue to monitor I's and O's, nephrology to follow #UTI with chronic indwelling Bergeron catheter and recent Klebsiella UTI -Blood and urine cultures obtained, broad-spectrum antibiotics, will avoid fluids due to fluid overload -Pro-Sudhir 0.25, CRP 21, ESR 17 -03/13: UA with gram-positive organism, continue broad-spectrum antibiotics and monitor cultures #anasarca -Admitted to ICU on pressors and IV diuresis begun -Daily weights, I's and O's -We will order echocardiogram -troponin 42, BNP 1511 up from 1126 on 03/09 -03/13: Receiving IV diuresis, daily weights, I's and O's. Echocardiogram performed 03/13 with EF of 50%, dyssynchronous septal motion consistent with right ventricular volume and pressure overload, moderately severe global right ventricular systolic dysfunction, severe tricuspid valve insufficiency, RVSP 57 #Hypercapnia -Unclear etiology, may have component of obesity hypoventilation syndrome and/for RACH -Patient placed on BiPAP -03/13: BiPAP nightly #Hypotension -Appears to be on midodrine at baseline -Patient has been refractory however required ICU placement and started on pressors especially to allow for diuresis -Lactic acid within normal limits -03/13: When able can transition from Levophed back to midodrine however has required Levophed to tolerate IV diuresis, wean as tolerated #LLE cellulitis -Broad-spectrum antibiotics #Anemia of unclear chronicity -Has been stable since 03/06 #Hyponatremia -Possibly secondary to fluid overload, urine and serum studies pending -03/13: Sodium 129 today, in part is low due to glucose of 239 as corrected sodium is 132, serum osmolality actually slightly elevated at 304. Do suspect in part this is due to heart failure. Continue to address underlying etiology #Atrial fibrillation -Hold beta-jeancarlos but will continue Amio and Eliquis #Hypothyroidism -Continue Synthroid -03/13: TSH 8.94 but free T4 is 1.02, will need repeated studies on outpatient basis, elevated TSH likely due to critical illness #Type 2 diabetes mellitus -Glucose checks and sliding scale insulin -Suspect glucose will improve with improvement in infection however may need additional long-acting coverage #Right pleural effusion and left perihilar masslike consolidation with history of lung cancer -Had thoracentesis previously at another facility which was reported to be transudate -Was seen on chest x-ray 03/09, chest x-ray appeared stable today 03/12/2023 -Spoke with son at length and patient reportedly was diagnosed with lung cancer 2 years ago and had chemo and radiation, had a recent biopsy and follows with Dr. Hyde but they do not know the results yet to know she had recurrent cancer. Has port present on upper left chest. She also reports she has had 4 total thoracentesis with 2 recently -03/13: Potential for thoracentesis pending progress #History of CAD status post CABG -Continue atorvastatin #History of prior subtotal gastrectomy -Monitor nutritional status #DVT ppx: On Estelaquis Eliane Rosenbaum MD Time spent in the patient's overall evaluation,decision-making process, review of diagnostic data, adjustment of management, discussion with other providers, nursing nursing and ancillary staff involved in patient's care documentation, 38 minutes Charges/Coding Visit Charges Inpatient E&M: 73559 Subs Hosp L3
[2023-03-13] MEDS: Amiodarone 200 MG Tablet PO (07:49)
[2023-03-13] MEDS: Pantoprazole Sodium 40 MG Tablet PO (07:49)
[2023-03-13] MEDS: APIXABAN 5 MG TABLET PO ×2 (07:49→21:16)
[2023-03-13] MEDS: Furosemide 40 MG/4 ML Vial IV (07:49)
[2023-03-13 08:01] LABS: Bedside Glucose 224 mg/dL (74-106)
--- NOTE | 2023-03-13 08:41 | WOUNDNOTE ---
wound photo: left medial lower leg
--- NOTE | 2023-03-13 08:42 | WOUNDNOTE ---
wound photo: left anterolateral lower leg
--- NOTE | 2023-03-13 08:50 | EX.PCM.CONCC ---
Assessment & Plan Assessment/Plan (1) Acute renal failure (ARF): (2) CHF (congestive heart failure): (3) Transient hypotension: PLAN: Plan RECOMMENDATIONS: 1. Continue empiric antibiotics 2. Await nephrology recommendations 3. Continue discussions about goals of therapy 4. Volume removal as tolerated 5. Consider empiric BiPAP with sleep (AVAPS) 6. Change Bergeron catheter 7. Potential thoracentesis IMPRESSIONS: 1. Acute on chronic kidney disease stage IIIb Patient with significant worsening in renal function. Patient reportedly is open to dialysis if necessary. Patient appears to have anasarca with significant swelling of the left upper extremity. Patient is on Eliquis therapy at baseline. Patient may have an element of sepsis, but is so fluid overloaded but no fluid boluses were given. Patient will be initiated on a Lasix drip. Patient may require pressor support in the interim, so recommend following in the intensive care unit. 2. UTI potential Patient with chronic indwelling Bergeron and recent Klebsiella UTI. Urinalysis is suggestive of a UTI. Urine cultures are now showing a gram-positive organism greater than 100,000 colonies. Patient does have broad-spectrum antibiotics at this time. Await species and sensitivities. Patient will be at risk for hypotension moving forward. Cannot exclude the need for pressors. 3. A-fib/hypothyroidism/diabetes mellitus/recurrent pleural effusion/history of lung cancer/CAD status post CABG/hypothyroidism/anemia Complicates care, management, recovery and prognosis. Patient has had multiple thoracentesis secondary to pleural effusion. Oxygenation appears to be doing stable at this time. Monitor blood sugars closely as patient will be at risk for both hypo and hyperglycemia. Poor long-term prognosis. Family reportedly wants to be aggressive for 24 to 48 hours to see if things can be improved. HPI Consult Data Date of Consult: 03/13/23 HPI Narrative Reason for Consultation: Sepsis HPI Narrative: RAMÓN FARNSWORTH is an 82 F, with past medical history listed below, who presents to [facility] on 03/12/2023 secondary to concerns for fluid status and worsening renal issues in the setting of decreased blood pressure. Patient reportedly had been at [facility] in [place] for cellulitis of the left lower extremity. During the hospitalization patient was noted to have a pleural effusion status postthoracentesis and diagnosed with cardiorenal syndrome. EF was reportedly 55%, but patient had A-fib and a concomitant diagnosis of lung cancer. On TCU, hospice was consulted, but the patient states she would want dialysis if it was necessary so nephrology recommended the patient come to the ER for transition to acute care. Patient did have a Klebsiella UTI at [place] also. Patient does have a chronic indwelling Bergeron of unclear reason. Patient is also on supplemental oxygen, but is unable to say if this is long-term. In the ER, patient was afebrile and saturating well on baseline 3 L nasal cannula. Patient did have some softer blood pressures of 93/51 with no significant tachycardia. Patient did have tachypnea as high as 36 breaths/min. Laboratory work-up showed a negative troponin, but a UA suggestive of infection. Chest x-ray was grossly unchanged with a large right hilar mass. Patient did not receive sepsis fluids secondary to being clinically fluid overloaded and concerns for CHF. Patient was admitted to the intensive care unit for further evaluation. Since being in the intensive care unit, patient has not had issues requiring pressors, blood pressures do remain marginal with maps in the 65-70 range. Patient has been on 3 L nasal cannula and tolerating this relatively well. Patient does have significant swelling of extremities, which she states is new for her. Patient has had access issues, but has a port in place. Patient is not able to provide much additional history at this time and is confused on her location, but readily admits that she has been hospitals for weeks. [facility] was contacted and patient did have penicillin sensitive Klebsiella on urine cultures. Documentation to confirm patient was admitted with cellulitis of the left lower extremity, but additional information such as the need for pressors could not be determined. Review of systems otherwise negative from a constitutional, HEENT, respiratory, cardiovascular, GI, genitourinary, musculoskeletal, skin, neurologic, psychiatric and hematologic system unless stated above. [facility] Medical History Acute kidney injury Chronic kidney disease, stage 3b Debility Diabetes mellitus History of lung cancer Hyperkalemia Hyperlipidemia Hypertension Left leg cellulitis Pleural effusion Sepsis Urinary retention Urinary tract infection Home Medications amiodarone 200 mg tablet 200 mg PO DAILY HEART 02/27/23 [History Last Taken 03/12/23 08:01] apixaban 5 mg tablet (Eliquis) 5 mg PO BID Anticoagulant 02/27/23 [History Last Taken 03/12/23 06:18] atorvastatin 20 mg tablet 20 mg PO QHS Cholesterol 02/27/23 [History Last Taken 03/11/23 21:05] bumetanide 1 mg tablet 1 mg PO DAILY FLUID 02/27/23 [History Last Taken Unknown] acetaminophen 500 mg tablet (Acetaminophen Extra Strength) 1,000 mg PO Q6H PRN PAIN SCORE 1-10 03/12/23 [History Last Taken 03/11/23 23:09] ceftriaxone 1 gram intravenous solution 1 g IV Q24H 03/12/23 [History Last Taken 03/12/23 10:15] cyclobenzaprine 5 mg tablet 5 mg PO TID PRN Spasms 03/12/23 [History Last Taken 03/12/23 00:42] doxepin 10 mg capsule 10 mg PO QHS SLEEP 03/12/23 [History Last Taken 03/11/23 21:05] folic acid 1 mg tablet 1 mg PO BREAKFAST SUPPLEMENT 03/12/23 [History Last Taken 03/12/23 08:01] gabapentin 100 mg capsule 100 mg PO BID SEIZURE 03/12/23 [History Last Taken 03/12/23 06:19] insulin lispro 100 unit/mL subcutaneous pen See Rx Instructions .Route .COMPLEX 03/12/23 [History Last Taken 03/12/23] levothyroxine 50 mcg tablet 50 mcg PO DAILY THYROID 03/12/23 [History Last Taken 03/12/23 06:19] magnesium hydroxide 400 mg/5 mL oral suspension 30 ml PO X1 PRN Constipation 03/12/23 [History Last Taken 03/05/23 08:49] menthol 0.44 %-zinc oxide 20.6 % topical ointment (Calmoseptine) 1 applic topical BID SKIN 03/12/23 [History Last Taken 03/12/23 06:19] metoprolol succinate 50 mg tablet,extended release 24 hr 50 mg PO DAILY HEART 03/12/23 [History Last Taken Unknown] midodrine 10 mg tablet 10 mg PO 4X/DAY 03/12/23 [History Last Taken 03/12/23 06:22] mirtazapine 7.5 mg tablet 7.5 mg PO QHS SLEEP 03/12/23 [History Last Taken 03/11/23 21:05] nystatin 100,000 unit/gram topical powder (Nystop) 1 applic topical BID SKIN 03/12/23 [History Last Taken 03/12/23 06:19] omeprazole 20 mg capsule,delayed release 20 mg PO DAILY GERD 03/12/23 [History Last Taken Unknown] pantoprazole 40 mg tablet,delayed release 40 mg PO DAILY GERD 03/12/23 [History Last Taken 03/12/23 06:19] sennosides 8.6 mg-docusate sodium 50 mg tablet (Senna with Docusate Sodium) 1 tab PO BID CONSTIPATION 03/12/23 [History Last Taken 07/01/21] Allergy/AdvReac Type Severity Reaction Status Date / Time kiwi Allergy Food Verified 03/12/23 14:14 Allergy morphine Allergy Rash Verified 03/12/23 14:14 Penicillins Allergy Rash Verified 03/12/23 14:14 shellfish derived Allergy Food Verified 03/12/23 14:14 Allergy Family History Mother CVA (cerebral vascular accident) Heart disease Father Diabetes Heart disease Surgical History History of carpal tunnel surgery of left wrist History of coronary artery bypass graft History of gastric bypass History of lung biopsy History of total knee arthroplasty Social History household members: none Smoking Status: Former smoker alcohol intake: never substance use type: does not use ROS ROS Narrative See HPI Physical Exam Const alert Constitutional Narrative: Oriented to person and time. Morbidly obese with anasarca. HEENT normocephalic and head/scalp atraumatic Eyes PERRL, EOMs intact bilaterally and conjunctivae normal Neck full ROM Neck Narrative: Unable to assess JVD secondary to body habitus Resp Resp Narrative: Difficult to assess posteriorly secondary to body habitus Auscultation: diminished lung sounds; Negative for rales, rhonchi or wheezes Cardio S1 normal heart sound, S2 normal heart sound, no murmurs, no rub and no gallops Cardio Narrative: Distant heart sounds secondary to body habitus Rhythm: abnormal rhythm irregularly irregular GI normal to inspection, nondistended, normoactive bowel sounds Extremity Extremity Narrative: Significant swelling of the left upper extremity General Extremity: edema Skin Skin Narrative: Dermal atrophy. Left lower extremity not evaluated as this was wrapped, but no surrounding erythema noted Neuro CN's II-XII intact bilaterally, moves all extremities and no focal motor deficits Psych cooperative and affect normal Medical Records Data Attestation: I reviewed the patient's medical records (See HPI) Lab / Micro Data Attestation: I reviewed the patient's lab results. Result Diagrams: 03/13/23 05:12 03/13/23 05:12 Labs: Laboratory Results - last 24 hr 03/12/23 06:53: ESR 17 03/12/23 06:53: B-Natriuretic Peptide 1511.3 H 03/12/23 12:15: Troponin I High Sens 42 03/12/23 12:15: Urine Color Yellow, Urine Clarity Sl. Cloudy, Urine pH 5.0, Ur Specific [place] 1.025, Urine Protein 100 H, Urine Glucose (UA) Normal, Urine Ketones 5 H, Urine Occult Blood 250 H, Urine Nitrite Negative, Urine Bilirubin 1 H, Urine Urobilinogen Normal, Ur Leukocyte Esterase 500 H, Urine RBC 50-100 SEEN, Urine WBC >100 SEEN, Ur Squamous Epith Cells 0-5 SEEN, Urine Bacteria 1+, Urine Mucus 2+, Urine Yeast 3+ 03/12/23 12:15: Sodium 128 L, Potassium 4.8, Chloride 90 L, Carbon Dioxide 28.0, Anion Gap 10, BUN 79 H, Creatinine 3.11 H, Estim Creat Clear Calc 16.13, Est GFR (MDRD) Af Amer 19 L, Est GFR (MDRD) Non-Af 15 L, BUN/Creatinine Ratio 25.4 H, Glucose 263 H, Calcium 7.7 L, Magnesium 2.5, Total Bilirubin 0.30, AST 40 H, ALT 27, Alkaline Phosphatase 174 H, C-React Prot Ext Range 21.10 H, Total Protein 5.5 L, Albumin 2.2 L, Globulin 3.3, Albumin/Globulin Ratio 0.7 L 03/12/23 12:15: Phosphorus 7.0 H 03/12/23 16:12: PT 21.1 H, INR 1.8 03/12/23 16:12: Lactic Acid 1.3 03/12/23 16:12: Procalcitonin 0.25 H 03/12/23 16:12: Serum Osmolality 304 H 03/12/23 17:00: Urine Osmolality 315, Ur Random Sodium 5, Urine Potassium 27.0, Urine Chloride 19, Urine Urea Nitrogen 276 03/12/23 18:05: POC Glucose 242 H 03/12/23 23:15: POC Glucose 246 H 03/13/23 05:12: WBC 7.6, RBC 3.16 L, Hgb 7.8 L, Hct 26.6 L, MCV 84.2, MCH 24.7 L, MCHC 29.3 L, RDW Std Deviation 50.6 H, RDW Coeff of Lola 16.8 H, Plt Count 279, MPV 10.9, Immature Gran % (Auto) 1.000 H, Neut % (Auto) 85.6 H, Lymph % (Auto) 4.3 L, [place] % (Auto) 8.9, Eos % (Auto) 0.1, Baso % (Auto) 0.1, Absolute Neuts (auto) 6.5, Absolute Lymphs (auto) 0.33 L, Nucleated RBC % 2.2, Differential Comment SCANNED, ESR 11 03/13/23 05:12: Sodium 129 L, Potassium 5.0, Chloride 92 L, Carbon Dioxide 31.0, Anion Gap 6, BUN 81 H, Creatinine 3.20 H, Estim Creat Clear Calc 15.67, Est GFR (MDRD) Af Amer 18 L, Est GFR (MDRD) Non-Af 15 L, BUN/Creatinine Ratio 25.3 H, Glucose 239 H, Calcium 7.9 L, Total Bilirubin 0.40, AST 43 H, ALT 26, Alkaline Phosphatase 160 H, C-React Prot Ext Range 27.20 H, Total Protein 5.4 L, Albumin 2.2 L, Globulin 3.2, Albumin/Globulin Ratio 0.7 L, TSH 8.94 H, Free T4 1.02 03/13/23 05:12: Vitamin B12 1139 H 03/13/23 06:28: POC Glucose 224 H Micro: Microbiology 03/12/23 12:15 Urine Catheter - Bergeron Urine Culture - Preliminary Gram positive organism ABG Data ABG results: ABG 03/12/23 16:13 Specimen Type MIGDALIA VBG pH 7.23 L VBG pO2 35 VBG HCO3 33 H VBG Total CO2 36 H VBG O2 Sat (Calc) 54 VBG Base Excess 6 H POC Mix VBG pCO2 Pt Tmp 79.0 H* O2 Delivery Device Cannula Liter Flow 2.0 Crit Call To/Read Back Yes Blood Gas Notified Whom iqra Blood Gas Notified Time 16:15:45 Rhythm Strip Rhythm Strip: A-fib Rate: 85 Ectopy: None Radiology Impression Chest X-Ray 03/12/23 12:20 IMPRESSION: No significant interval change. Electronically Signed: Riddhi Corral MD at 12:46 EDT , Charges/Coding Visit Charges Inpatient E&M: 55187 Init Hosp L3
[2023-03-13] MEDS: Furosemide 500 MG in Empty Viaflex 50 mL 1 EACH CONT INF (11:01)
--- NOTE | 2023-03-13 11:02 | PCM.CONS.R ---
Assessment & Plan Assessment/Plan (1) Acute renal failure (ARF): (2) Chronic kidney disease, stage 3b: (3) Anasarca: PLAN: Plan This is an 82-year-old female with complicated past medical history whom nephrology had been following when in TCU for NICHOLAS superimposed on CKD. NICHOLAS felt to be multifactorial from hypotension, ATN, possible component of cardiorenal syndrome and recent infection. Patient has CKD stage III with baseline creatinine around 1.5 mg/dL. Patient's kidney function has been worsening, urine output has been declining, patient also noted to be hypotensive (despite midodrine) with hypervolemia therefore she was transferred to ICU and started on IV pressors. Patient was initially started on Lasix drip but this was stopped throughout the night due to lack of IV access. Now that patient has better IV access we will resume Lasix drip. Patient's creatinine was 1.45 mg/dL on admission to TCU. Over the past few days serum creatinine has been slowly rising. Yesterday her creatinine was 3.41. Today her creatinine is 3.20. 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 Patient is hypervolemic and recommended continue with Lasix drip as ordered. There has been discussion with patient's son that if patient needs hemodialysis they likely would not pursue that option given patient's overall decline over the past few months as well as her comorbidities and would consider hospice. Patient is DNRCCA with no intubation. Discussed nephrology plan with outpatient coordinator and primary team. Patient is on IV antibiotics, cefepime for UTI. She is also receiving IV pressors and blood pressures have shown some improvement. Likely patient will require Levophed to tolerate IV Lasix drip. Further orders forthcoming as hospitalization evolves, thank you for allowing us to participate in the care of Ms. Farnsworth HPI Consult Data Date of Consult: 03/13/23 HPI Narrative HPI Narrative: RAMÓN FARNSWORTH, is a 82 F with past medical history significant for hypertension, diabetes mellitus type 2, PAD, CAD status post CABG, heart failure with preserved EF (EF 40 to 45%, history of dilated IVC, A-fib, mitral valve disease status post replacement, right non-small cell lung cancer and had required multiple thoracenteses who had been receiving therapy in TCU but transferred to inpatient, ICU bed yesterday as patient was noted to be hypotensive not responding well to midodrine and also significantly hypervolemic. We have been following patient while she was in TCU for NICHOLAS on CKD. NICHOLAS felt to be's secondary to component from ATN, hypoperfusion from hypotension however possible cause also from cardiorenal syndrome physiology. Patient is alert to name. [facility] Medical History Acute kidney injury Chronic kidney disease, stage 3b Debility Diabetes mellitus History of lung cancer Hyperkalemia Hyperlipidemia Hypertension Left leg cellulitis Pleural effusion Sepsis Urinary retention Urinary tract infection Home Medications amiodarone 200 mg tablet 200 mg PO DAILY HEART 02/27/23 [History Last Taken 03/12/23 08:01] apixaban 5 mg tablet (Eliquis) 5 mg PO BID Anticoagulant 02/27/23 [History Last Taken 03/12/23 06:18] atorvastatin 20 mg tablet 20 mg PO QHS Cholesterol 02/27/23 [History Last Taken 03/11/23 21:05] bumetanide 1 mg tablet 1 mg PO DAILY FLUID 02/27/23 [History Last Taken Unknown] acetaminophen 500 mg tablet (Acetaminophen Extra Strength) 1,000 mg PO Q6H PRN PAIN SCORE 1-10 03/12/23 [History Last Taken 03/11/23 23:09] ceftriaxone 1 gram intravenous solution 1 g IV Q24H 03/12/23 [History Last Taken 03/12/23 10:15] cyclobenzaprine 5 mg tablet 5 mg PO TID PRN Spasms 03/12/23 [History Last Taken 03/12/23 00:42] doxepin 10 mg capsule 10 mg PO QHS SLEEP 03/12/23 [History Last Taken 03/11/23 21:05] folic acid 1 mg tablet 1 mg PO BREAKFAST SUPPLEMENT 03/12/23 [History Last Taken 03/12/23 08:01] gabapentin 100 mg capsule 100 mg PO BID SEIZURE 03/12/23 [History Last Taken 03/12/23 06:19] insulin lispro 100 unit/mL subcutaneous pen See Rx Instructions .Route .COMPLEX 03/12/23 [History Last Taken 03/12/23] levothyroxine 50 mcg tablet 50 mcg PO DAILY THYROID 03/12/23 [History Last Taken 03/12/23 06:19] magnesium hydroxide 400 mg/5 mL oral suspension 30 ml PO X1 PRN Constipation 03/12/23 [History Last Taken 03/05/23 08:49] menthol 0.44 %-zinc oxide 20.6 % topical ointment (Calmoseptine) 1 applic topical BID SKIN 03/12/23 [History Last Taken 03/12/23 06:19] metoprolol succinate 50 mg tablet,extended release 24 hr 50 mg PO DAILY HEART 03/12/23 [History Last Taken Unknown] midodrine 10 mg tablet 10 mg PO 4X/DAY 03/12/23 [History Last Taken 03/12/23 06:22] mirtazapine 7.5 mg tablet 7.5 mg PO QHS SLEEP 03/12/23 [History Last Taken 03/11/23 21:05] nystatin 100,000 unit/gram topical powder (Nystop) 1 applic topical BID SKIN 03/12/23 [History Last Taken 03/12/23 06:19] omeprazole 20 mg capsule,delayed release 20 mg PO DAILY GERD 03/12/23 [History Last Taken Unknown] pantoprazole 40 mg tablet,delayed release 40 mg PO DAILY GERD 03/12/23 [History Last Taken 03/12/23 06:19] sennosides 8.6 mg-docusate sodium 50 mg tablet (Senna with Docusate Sodium) 1 tab PO BID CONSTIPATION 03/12/23 [History Last Taken 07/01/21] Allergy/AdvReac Type Severity Reaction Status Date / Time kiwi Allergy Food Verified 03/12/23 14:14 Allergy morphine Allergy Rash Verified 03/12/23 14:14 Penicillins Allergy Rash Verified 03/12/23 14:14 shellfish derived Allergy Food Verified 03/12/23 14:14 Allergy Family History Mother CVA (cerebral vascular accident) Heart disease Father Diabetes Heart disease Surgical History History of carpal tunnel surgery of left wrist History of coronary artery bypass graft History of gastric bypass History of lung biopsy History of total knee arthroplasty Social History household members: none Smoking Status: Former smoker alcohol intake: never substance use type: does not use ROS ROS Narrative As in HPI past medical history Physical Exam Narrative Alert to name and place, having difficult time recalling recent events S1, S2, rhythm irregular rate controlled Lung sounds diminished with scattered rales Abdomen soft, rounded, positive bowel sounds, edema across abdominal wall 3-4+ pitting edema noted bilateral lower legs and thighs, edema noted bilateral arms and hands Indwelling Bergeron Lab / Micro Data Result Diagrams: 03/13/23 05:12 03/13/23 05:12 Labs: Laboratory Results - last 24 hr 03/12/23 06:53: ESR 17 03/12/23 06:53: B-Natriuretic Peptide 1511.3 H 03/12/23 12:15: Troponin I High Sens 42 03/12/23 12:15: Urine Color Yellow, Urine Clarity Sl. Cloudy, Urine pH 5.0, Ur Specific [place] 1.025, Urine Protein 100 H, Urine Glucose (UA) Normal, Urine Ketones 5 H, Urine Occult Blood 250 H, Urine Nitrite Negative, Urine Bilirubin 1 H, Urine Urobilinogen Normal, Ur Leukocyte Esterase 500 H, Urine RBC 50-100 SEEN, Urine WBC >100 SEEN, Ur Squamous Epith Cells 0-5 SEEN, Urine Bacteria 1+, Urine Mucus 2+, Urine Yeast 3+ 03/12/23 12:15: Sodium 128 L, Potassium 4.8, Chloride 90 L, Carbon Dioxide 28.0, Anion Gap 10, BUN 79 H, Creatinine 3.11 H, Estim Creat Clear Calc 16.13, Est GFR (MDRD) Af Amer 19 L, Est GFR (MDRD) Non-Af 15 L, BUN/Creatinine Ratio 25.4 H, Glucose 263 H, Calcium 7.7 L, Magnesium 2.5, Total Bilirubin 0.30, AST 40 H, ALT 27, Alkaline Phosphatase 174 H, C-React Prot Ext Range 21.10 H, Total Protein 5.5 L, Albumin 2.2 L, Globulin 3.3, Albumin/Globulin Ratio 0.7 L 03/12/23 12:15: Phosphorus 7.0 H 03/12/23 16:12: PT 21.1 H, INR 1.8 03/12/23 16:12: Lactic Acid 1.3 03/12/23 16:12: Procalcitonin 0.25 H 03/12/23 16:12: Serum Osmolality 304 H 03/12/23 17:00: Urine Osmolality 315, Ur Random Sodium 5, Urine Potassium 27.0, Urine Chloride 19, Urine Urea Nitrogen 276 03/12/23 18:05: POC Glucose 242 H 03/12/23 23:15: POC Glucose 246 H 03/13/23 05:12: WBC 7.6, RBC 3.16 L, Hgb 7.8 L, Hct 26.6 L, MCV 84.2, MCH 24.7 L, MCHC 29.3 L, RDW Std Deviation 50.6 H, RDW Coeff of Lola 16.8 H, Plt Count 279, MPV 10.9, Immature Gran % (Auto) 1.000 H, Neut % (Auto) 85.6 H, Lymph % (Auto) 4.3 L, [place] % (Auto) 8.9, Eos % (Auto) 0.1, Baso % (Auto) 0.1, Absolute Neuts (auto) 6.5, Absolute Lymphs (auto) 0.33 L, Nucleated RBC % 2.2, Differential Comment SCANNED, ESR 11 03/13/23 05:12: Sodium 129 L, Potassium 5.0, Chloride 92 L, Carbon Dioxide 31.0, Anion Gap 6, BUN 81 H, Creatinine 3.20 H, Estim Creat Clear Calc 15.67, Est GFR (MDRD) Af Amer 18 L, Est GFR (MDRD) Non-Af 15 L, BUN/Creatinine Ratio 25.3 H, Glucose 239 H, Calcium 7.9 L, Total Bilirubin 0.40, AST 43 H, ALT 26, Alkaline Phosphatase 160 H, C-React Prot Ext Range 27.20 H, Total Protein 5.4 L, Albumin 2.2 L, Globulin 3.2, Albumin/Globulin Ratio 0.7 L, TSH 8.94 H, Free T4 1.02 03/13/23 05:12: Vitamin B12 1139 H 03/13/23 06:28: POC Glucose 224 H Micro: Microbiology 03/12/23 12:15 Urine Catheter - Bergeron Urine Culture - Preliminary Gram positive organism ABG Data ABG results: ABG 03/12/23 16:13 Specimen Type MIGDALIA VBG pH 7.23 L VBG pO2 35 VBG HCO3 33 H VBG Total CO2 36 H VBG O2 Sat (Calc) 54 VBG Base Excess 6 H POC Mix VBG pCO2 Pt Tmp 79.0 H* O2 Delivery Device Cannula Liter Flow 2.0 Crit Call To/Read Back Yes Blood Gas Notified Whom escalona Blood Gas Notified Time 16:15:45 Rhythm Strip Rhythm Strip: A-fib Rate: 85 Ectopy: None Radiology Impression Chest X-Ray 03/12/23 12:20 IMPRESSION: No significant interval change. Electronically Signed: Riddhi Corral MD at 12:46 EDT ,
--- NOTE | 2023-03-13 11:45 | NURSING ---
Patient amaro was removed at this time. Patient tolerated well and a purewick was placed for accurate I&O's while on Lasix gtt.
--- NOTE | 2023-03-13 11:45 | CHAPLAIN ---
Type of Pastoral Visit ___ Initial Visit _x__ Follow-up Visit ___ On-call Visit ___ General Patient Visit ___ Spiritual Assessment ___ Family Conference ___ Bereavement ___ Rapid Response ___ Code Blue ___ Other (describe below) Pastoral Care Referral From _x__ Patient ___ Family ___ Nurse ___ Physician ___ Equalizing Saw Operator ___ Senior Client Advisor ___ Other (describe below) Sacrament/Intervention _x__ Active listening ___ Anointing ___ Sikhism ___ Bereavement ___ Communion _x__ Trina exploration ___ ___ Life review _x__ Prayer ___ Reconciliation ___ Sacrament of Sick _x__ Supportive presence ___ Wedding ___ Other (describe below) Pastoral Comments patient was resting but awoke at her name; pt welcomed spiritual care from this donations attendant whom she met in TCU; pt reports that she hopes that God heals and helps me but that I am okay with either way, it's His decision; pt reviews her trina and adventist of many years ago; pt welcomed presence and calming spirit for her support; family is not available for much support as daughter is ill at this time and son is not active in her care apparently
[2023-03-13 13:13] LABS: Bedside Glucose 237 mg/dL (74-106)
--- NOTE | 2023-03-13 16:08 | CASEMGMT ---
Social Work Pt admitted from TCU and was to be d/c on 03/15 to a SNF. [facility], [facility] and [facility] had all accepted. A referral to Palliative has been made while in TCU but they have not met with son yet. SW spoke with pt son Oswaldo who is currently in [place] and will be home late Sunday evening and available for meetings on or Sunday if warranted. SW updated that all three facilities have accepted but dc planning is on hold until pt is more medically stable. RN updated on pt son. SW to follow up for d/c needs. ZOË Plummer
[2023-03-13 17:43] LABS: Bedside Glucose 236 mg/dL (74-106)
[2023-03-13] MEDS: Atorvastatin Calcium 20 MG Tablet PO (21:17)
[2023-03-14] VITALS (24 sets, daily range): BP systolic 91–122; BP diastolic 45–79; PULSE 75–91; RESP 12–23; TEMP 35.8–36.4; O2SAT 92–99; BMI 55.5
[2023-03-14] MEDS: Insulin Lispro 100 UNIT/ML INSULN.PEN SC ×4 (00:06→17:17)
[2023-03-14 00:27] LABS: Bedside Glucose 293 mg/dL (74-106)
[2023-03-14 04:50] LABS: Absolute Lymphocyte Count 0.34 X10^3/uL (0.83-4.51); Absolute Neutrophil Count 5.7 X10^3/uL (2.0-7.7); Basophil# 0.02 X10^3/uL; Basophil% 0.3 % (0-1); Eosinophil# 0.01 X10^3/uL; Eosinophils% 0.1 % (0-5); Hematocrit 26.8 % (37-47); Hemoglobin 7.8 g/dL (12.0-15.0); Lymphocyte # 0.34 X10^3/ul (0.83-4.51); Mean Corp Hgb Conc 29.1 g/dL (32-36); Mean Corpuscular Hgb 24.2 pg (27.0-32.0); Mean Corpuscular Volume 83.2 fL (81-99); Mean Platelet Vol. 9.7 fl (6.2-12.0); Monocyte# 0.65 X10^3/uL; Monocyte% 9.5 % (0-10); NRBC Flagged by Analyzer 3.8 % (0-5); Neutrophil # 5.73 X10^3/uL (2.7-7.7); Neutrophil % 84.1 % (47-70); POSITIVE DIFFERENTIAL YES; Platelet Count 236 K/mm3 (150-450); RBC Distribution Width SD 51.4 fl (35.1-43.9); Red Blood Count 3.22 M/mm3 (4.2-5.4); White Blood Count 6.8 K/mm3 (4.4-11.0)
[2023-03-14 04:52] LABS: Differential Indicated SCAN CRITERIA MET
[2023-03-14 05:04] LABS: Anisocytosis 1+; Differential Comment SCANNED; Hypochromasia 2+
[2023-03-14 05:11] LABS: ALB/GLOB Ratio 0.8 RATIO (0.9-2.4); AST(SGOT) 24 U/L (15-37); Alanine Aminotransfer ALT/SGPT 23 U/L (13-56); Albumin, Serum 2.3 g/dL (3.2-5.0); Alkaline Phosphatase 163 U/L (45-117); Anion Gap 5 (5-15); BUN 86 mg/dL (7-18); BUN/Creat Ratio 26.7 RATIO (10-20); Calcium,Total 7.8 mg/dL (8.5-10.1); Chloride 91 mmol/L (98-107); Cholesterol 87 mg/dL (200); Creatinine, Serum 3.22 mg/dL (0.55-1.02); EST Glomerular Filtration Rate 15 mL/min (>60); Est Glom Filt Rate - Afr Amer 18 mL/min (>60); Estimated Creatinine Clearance 10.52 ml/min; Glucose 250 mg/dL (74-106); High Density Lipoprotein 39 mg/dL; Potassium 4.7 mmol/L (3.5-5.1); Protein, Total 5.3 g/dL (6.4-8.2); Sodium Level 130 mmol/L (136-145); Triglycerides 92 mg/dL; Very Low Density Lipoprotein 18 mg/dL (5-40)
[2023-03-14 05:17] LABS: Vancomycin, Random Level 14.4 ug/mL (0.0-15.0)
[2023-03-14] MEDS: Levothyroxine 50 MCG Tablet PO (06:28)
[2023-03-14 06:49] LABS: Bedside Glucose 254 mg/dL (74-106)
--- NOTE | 2023-03-14 07:10 | PN.CC_ITS ---
Assessment & Plan Assessment/Plan (1) Acute renal failure (ARF): (2) CHF (congestive heart failure): (3) Transient hypotension: PLAN: Plan RECOMMENDATIONS: 1. Consider discontinuation of antibiotics. Defer to hospitalist on antifungal 2. Increase Lasix drip. Await nephrology recommendations 3. Continue discussions about goals of therapy 4. Volume removal as tolerated 5. Consider empiric BiPAP with sleep (AVAPS) 6. Possible transfer to the floor later today if able to tolerate Lasix drip and increased dosing IMPRESSIONS: 1. Acute on chronic kidney disease stage IIIb Patient with significant worsening in renal function. Patient reportedly is open to dialysis if necessary. Patient appears to have anasarca with significant swelling of the left upper extremity. Left upper extremity has been elevated. Patient is on Eliquis therapy at baseline. Patient may have an element of sepsis, but is so fluid overloaded so no fluid boluses were given. Patient will be increased on Lasix drip. If patient can tolerate this hemodynamically, likely okay to go to PCU. 2. UTI potential Patient with chronic indwelling Bergeron and recent Klebsiella UTI. Urinalysis is suggestive of candiduria. Urine cultures are now showing Hilary. Defer to primary service on whether this should be treated. Bergeron has been changed. Patient does have broad-spectrum antibiotics at this time. These can likely be discontinued from my perspective. 3. A-fib/hypothyroidism/diabetes mellitus/recurrent pleural effusion/history of lung cancer/CAD status post CABG/hypothyroidism/anemia Complicates care, management, recovery and prognosis. Patient has had multiple thoracentesis secondary to pleural effusion. Oxygenation appears to be doing stable at this time. Monitor blood sugars closely as patient will be at risk for both hypo and hyperglycemia. Poor long-term prognosis. Family reportedly wants to be aggressive for 24 to 48 hours to see if things can be improved. Subjective Subjective Patient did okay overnight. Patient remains on Lasix drip with minimal urine output. Patient has been saturating well on nasal cannula. No significant hypotension has been reported despite Lasix drip. Patient did have to have a Bergeron placed yesterday afternoon secondary to the decreased urine output. Objective Data Objective Data Vital Signs: Vital Signs Temp Pulse Resp BP Pulse Ox O2 Del Method O2 Flow Rate 35.9 C L 86 15 101/55 L 93 Nasal Cannula 3 03/14/23 07:00 03/14/23 07:00 03/14/23 07:00 03/14/23 07:00 03/14/23 07:00 03/14/23 07:00 03/14/23 07:00 FiO2 30 03/13/23 23:10 Oxygen Flow Rate (L/min) 3 Oxygen Delivery Method Nasal Cannula Weight: 133.4 kg Body Mass Index (BMI) 55.5 Intake & Output: Intake and Output for Last 24 Hours 03/12/23 03/13/23 03/14/23 23:59 23:59 23:59 Intake Total 100 / 300 360 / 360 Output Total 725 / 770 180 / 180 Balance 100 / 300 -365 / -410 -180 / -180 Lab / Micro Data Attestation: I reviewed the patient's lab results. Result Diagrams: 03/14/23 04:41 03/14/23 04:41 Labs: Laboratory Results - last 24 hr 03/13/23 06:28: POC Glucose 224 H 03/13/23 12:52: POC Glucose 237 H 03/13/23 17:23: POC Glucose 236 H 03/14/23 00:04: POC Glucose 293 H 03/14/23 04:41: Sodium 130 L, Potassium 4.7, Chloride 91 L, Carbon Dioxide 34.0 H, Anion Gap 5, BUN 86 H, Creatinine 3.22 H, Estim Creat Clear Calc 10.52, Est GFR (MDRD) Af Amer 18 L, Est GFR (MDRD) Non-Af 15 L, BUN/Creatinine Ratio 26.7 H , Glucose 250 H, Calcium 7.8 L, Total Bilirubin 0.40, AST 24, ALT 23, Alkaline Phosphatase 163 H, Total Protein 5.3 L, Albumin 2.3 L, Globulin 3.0, Albumin/Globulin Ratio 0.8 L, Triglycerides 92, Cholesterol 87, LDL Cholesterol 30, VLDL Cholesterol 18, HDL Cholesterol 39 L 03/14/23 04:41: Random Vancomycin 14.4 03/14/23 04:41: WBC 6.8, RBC 3.22 L, Hgb 7.8 L, Hct 26.8 L, MCV 83.2, MCH 24.2 L , MCHC 29.1 L, RDW Std Deviation 51.4 H, RDW Coeff of Lola 17.0 H, Plt Count 236, MPV 9.7, Immature Gran % (Auto) 1.000 H, Neut % (Auto) 84.1 H, Lymph % (Auto) 5.0 L, [place] % (Auto) 9.5, Eos % (Auto) 0.1, Baso % (Auto) 0.3, Absolute Neuts (auto) 5.7, Absolute Lymphs (auto) 0.34 L, Nucleated RBC % 3.8, Differential Comment SCANNED, Hypochromasia 2+, Anisocytosis 1+ 03/14/23 06:27: POC Glucose 254 H Micro: Microbiology 03/12/23 12:15 Urine Catheter - Bergeron Urine Culture - Final Presumptive C albicans Radiography Diagnostic Testing: Radiology Impression Echocardiogram 03/12/23 18:26 Interpretation Summary Technically difficult study with suboptimal images. Mild concentric left ventricular hypertrophy. The left ventricular ejection fraction is 50 %. Left ventricle dyssynchronous septal motion. Septal motion consistent with right ventricular volume and pressure overload. Moderately dilated right ventricle. Moderately severe global right ventricular systolic dysfunction. The left atrium is severely enlarged. Mild diffuse mitral valve thickening. Mild (1+) mitral valve insufficiency. Severe (4+) tricuspid valve insufficiency. Right ventricular systolic pressure estimated to be 57 mmHg. Mildly dilated aortic root. Ordering Physician: Eliane Rosenbaum Performed By: Viktor Petit RCS Rhythm Strip Rhythm Strip: A-fib Rate: 75 Ectopy: None Physical Exam Const alert Constitutional Narrative: Oriented to person and time. Morbidly obese with anasarca. HEENT normocephalic and head/scalp atraumatic Eyes PERRL, EOMs intact bilaterally and conjunctivae normal Neck full ROM Neck Narrative: Unable to assess JVD secondary to body habitus Resp Resp Narrative: Difficult to assess posteriorly secondary to body habitus Auscultation: diminished lung sounds; Negative for rales, rhonchi or wheezes Cardio S1 normal heart sound, S2 normal heart sound, no murmurs, no rub and no gallops Cardio Narrative: Distant heart sounds secondary to body habitus Rhythm: abnormal rhythm irregularly irregular GI normal to inspection, nondistended, normoactive bowel sounds Extremity Extremity Narrative: Significant swelling of the left upper extremity General Extremity: edema Skin Skin Narrative: Dermal atrophy. Left lower extremity not evaluated as this was wrapped, but no surrounding erythema noted Neuro CN's II-XII intact bilaterally, moves all extremities and no focal motor deficits Psych cooperative and affect normal Charges/Coding Visit Charges Inpatient E&M: 62729 Subs Hosp L3
--- NOTE | 2023-03-14 07:16 | PCM.PN.HOSP ---
Reason for Visit Reason for Visit: Diagnoses Heart failure, unspecified (03/12/23) Hypotension, unspecified (03/12/23) Acute kidney failure, unspecified (03/12/23) Chronic kidney disease, stage 3b (03/12/23) Personal history of other malignant neoplasm of bronchus and lung (03/12/23) Subjective Subjective Patient feeling swollen but does feel little bit better overall Objective Data Objective Data Vital Signs: Vital Signs Temp Pulse Resp BP Pulse Ox O2 Del Method O2 Flow Rate 96.7 F L 86 15 101/55 L 93 Nasal Cannula 3 03/14/23 07:00 03/14/23 07:00 03/14/23 07:00 03/14/23 07:00 03/14/23 07:00 03/14/23 07:00 03/14/23 07:00 FiO2 30 03/13/23 23:10 Oxygen Flow Rate (L/min) 3 Oxygen Delivery Method Nasal Cannula Weight: 133.4 kg Body Mass Index (BMI) 55.5 Intake & Output: Intake and Output for Last 24 Hours 03/12/23 03/13/23 03/14/23 23:59 23:59 23:59 Intake Total 100 / 300 360 / 360 Output Total 725 / 770 180 / 180 Balance 100 / 300 -365 / -410 -180 / -180 Lab / Micro Data Result Diagrams: 03/14/23 04:41 03/14/23 04:41 Labs: Laboratory Results - last 24 hr 03/13/23 06:28: POC Glucose 224 H 03/13/23 12:52: POC Glucose 237 H 03/13/23 17:23: POC Glucose 236 H 03/14/23 00:04: POC Glucose 293 H 03/14/23 04:41: Sodium 130 L, Potassium 4.7, Chloride 91 L, Carbon Dioxide 34.0 H, Anion Gap 5, BUN 86 H, Creatinine 3.22 H, Estim Creat Clear Calc 10.52, Est GFR (MDRD) Af Amer 18 L, Est GFR (MDRD) Non-Af 15 L, BUN/Creatinine Ratio 26.7 H, Glucose 250 H, Calcium 7.8 L, Total Bilirubin 0.40, AST 24, ALT 23, Alkaline Phosphatase 163 H, Total Protein 5.3 L, Albumin 2.3 L, Globulin 3.0, Albumin/Globulin Ratio 0.8 L, Triglycerides 92, Cholesterol 87, LDL Cholesterol 30, VLDL Cholesterol 18, HDL Cholesterol 39 L 03/14/23 04:41: Random Vancomycin 14.4 03/14/23 04:41: WBC 6.8, RBC 3.22 L, Hgb 7.8 L, Hct 26.8 L, MCV 83.2, MCH 24.2 L, MCHC 29.1 L, RDW Std Deviation 51.4 H, RDW Coeff of Lola 17.0 H, Plt Count 236, MPV 9.7, Immature Gran % (Auto) 1.000 H, Neut % (Auto) 84.1 H, Lymph % (Auto) 5.0 L, [place] % (Auto) 9.5, Eos % (Auto) 0.1, Baso % (Auto) 0.3, Absolute Neuts (auto) 5.7, Absolute Lymphs (auto) 0.34 L, Nucleated RBC % 3.8, Differential Comment SCANNED, Hypochromasia 2+, Anisocytosis 1+ 03/14/23 06:27: POC Glucose 254 H Micro: Microbiology 03/12/23 12:15 Urine Catheter - Bergeron Urine Culture - Final Presumptive C albicans Radiography Diagnostic Testing: Radiology Impression Echocardiogram 03/12/23 18:26 Interpretation Summary Technically difficult study with suboptimal images. Mild concentric left ventricular hypertrophy. The left ventricular ejection fraction is 50 %. Left ventricle dyssynchronous septal motion. Septal motion consistent with right ventricular volume and pressure overload. Moderately dilated right ventricle. Moderately severe global right ventricular systolic dysfunction. The left atrium is severely enlarged. Mild diffuse mitral valve thickening. Mild (1+) mitral valve insufficiency. Severe (4+) tricuspid valve insufficiency. Right ventricular systolic pressure estimated to be 57 mmHg. Mildly dilated aortic root. Ordering Physician: Eliane Rosenbaum Performed By: Viktor Petit RCS Rhythm Strip Rhythm Strip: A-fib Rate: 75 Ectopy: None Physical Exam Narrative General: Alert, no apparent distress HEENT: Atraumatic, normocephalic Eyes: Anicteric, normal conjunctiva, extraocular movements grossly intact Neck: Supple Respiratory: Diminished bilaterally but largely secondary to body habitus,, normal respiratory effort Cardiovascular: Regular rate GI: Soft, nontender, nondistended Extremities: Left lower extremity wrapped, some moderate lower extremity edema Musculoskeletal: Moving all extremities Neuro: No overt focal neurological deficits Skin: Left lower extremity wrapped Psych: Cooperative Assessment & Plan Assessment/Plan (1) Acute renal failure (ARF): (2) Transient hypotension: (3) Chronic kidney disease, stage 3b: (4) History of lung cancer: PLAN: Plan #NICHOLAS on CKD stage IIIb -Admitted to ICU, will begin diuresis -Nephrology consult -Urine studies -Had renal ultrasound 03/08 with nonspecific renal parenchymal disease with no obstruction -03/13: Slightly worsened today, Lasix drip, wean pressors as tolerated, continue to monitor I's and O's, nephrology to follow -03/14: Creatinine improved from initial on 03/12, minimally worse than yesterday. On Lasix drip. Monitor I's and O's, await nephrology input #UTI with chronic indwelling Bergeron catheter and recent Klebsiella UTI -Blood and urine cultures obtained, broad-spectrum antibiotics, will avoid fluids due to fluid overload -Pro-Sudhir 0.25, CRP 21, ESR 17 -03/13: UA with gram-positive organism, continue broad-spectrum antibiotics and monitor cultures -03/14: Urine culture today reporting presumptive C albicans, unclear underlying organism, has remained on cefepime, blood cultures no growth to date. Bergeron has been changed so repeat UA as this may have been colonization. We will decide further treatment/management pending results #anasarca -Admitted to ICU on pressors and IV diuresis begun -Daily weights, I's and O's -We will order echocardiogram -troponin 42, BNP 1511 up from 1126 on 03/09 -03/13: Receiving IV diuresis, daily weights, I's and O's. Echocardiogram performed 03/13 with EF of 50%, dyssynchronous septal motion consistent with right ventricular volume and pressure overload, moderately severe global right ventricular systolic dysfunction, severe tricuspid valve insufficiency, RVSP 57 -03/14: IV diuresis, has been off of Levophed, likely can be transferred to PCU today #Hypercapnia -Unclear etiology, may have component of obesity hypoventilation syndrome and/for RACH -Patient placed on BiPAP -03/13: BiPAP nightly #Hypotension -Appears to be on midodrine at baseline -Patient has been refractory however required ICU placement and started on pressors especially to allow for diuresis -Lactic acid within normal limits -03/13: When able can transition from Levophed back to midodrine however has required Levophed to tolerate IV diuresis, wean as tolerated -03/14: Has been tolerating diuresis off Levophed #LLE cellulitis -Broad-spectrum antibiotics #Anemia of unclear chronicity -Has been stable since 03/06 #Hyponatremia -Possibly secondary to fluid overload, urine and serum studies pending -03/13: Sodium 129 today, in part is low due to glucose of 239 as corrected sodium is 132, serum osmolality actually slightly elevated at 304. Do suspect in part this is due to heart failure. Continue to address underlying etiology #Atrial fibrillation -Hold beta-jeancarlos but will continue Amio and Eliquis #Hypothyroidism -Continue Synthroid -03/13: TSH 8.94 but free T4 is 1.02, will need repeated studies on outpatient basis, elevated TSH likely due to critical illness #Type 2 diabetes mellitus -Glucose checks and sliding scale insulin -Suspect glucose will improve with improvement in infection however may need additional long-acting coverage #Right pleural effusion and left perihilar masslike consolidation with history of lung cancer -Had thoracentesis previously at another facility which was reported to be transudate -Was seen on chest x-ray 03/09, chest x-ray appeared stable today 03/12/2023 -Spoke with son at length and patient reportedly was diagnosed with lung cancer 2 years ago and had chemo and radiation, had a recent biopsy and follows with Dr. Hyde but they do not know the results yet to know she had recurrent cancer. Has port present on upper left chest. She also reports she has had 4 total thoracentesis with 2 recently -03/13: Potential for thoracentesis pending progress #History of CAD status post CABG -Continue atorvastatin #History of prior subtotal gastrectomy -Monitor nutritional status #DVT ppx: On Estelaquarcadio Rosenbaum MD Time spent in the patient's overall evaluation,decision-making process, review of diagnostic data, adjustment of management, discussion with other providers, nursing nursing and ancillary staff involved in patient's care documentation, 38 minutes Charges/Coding Visit Charges Inpatient E&M: 02402 Subs Hosp L3
--- NOTE | 2023-03-14 07:58 | PCM.RX.CS ---
Consult Pharmacy has been consulted to manage selected antiobiotic: Vancomycin Type of Consult: Follow-up Prior Doses of Antibiotics Received/Current Regimen: received vanc 2000mg IV x1 on 03/12/23 at 17:01 Labs: Sodium 130 mmol/L (136-145) L 03/14/23 04:41 Potassium 4.7 mmol/L (3.5-5.1) 03/14/23 04:41 Chloride 91 mmol/L (98-107) L 03/14/23 04:41 Carbon Dioxide 34.0 mmol/L (21.0-32.0) H 03/14/23 04:41 Anion Gap 5 (5-15) 03/14/23 04:41 BUN 86 mg/dL (7-18) H 03/14/23 04:41 Creatinine 3.22 mg/dL (0.55-1.02) H 03/14/23 04:41 Est GFR (MDRD) Af Amer 18 mL/min (>60) L 03/14/23 04:41 Est GFR (MDRD) Non-Af 15 mL/min (>60) L 03/14/23 04:41 BUN/Creatinine Ratio 26.7 RATIO (10-20) H 03/14/23 04:41 Glucose 250 mg/dL (74-106) H 03/14/23 04:41 Random Vancomycin 14.4 ug/mL (0.0-15.0) 03/14/23 04:41 Microbiology: Microbiology 03/12/23 12:15 Urine Catheter - Bergeron Urine Culture - Final Presumptive C albicans Weight used for dosin.4 kg Estimated Creatinine Clearance: 18 ml/min Goal Trough: 15-20 mcg/mL Pharmacy Plan for Drug Dosing: The vanc random level drawn at 04:41 today (approx 36 hrs after the above dose) was 14.4. Since the level is <20, will give a one time dose of 1250mg today. Did not want to go with a higher dose due to the patient's age and current renal function. Will repeat a random level tomorrow with AM labs. The patient's CrCl of 18 ml/min was calculated using an adjusted body weight. Pharmacy Service will continue to monitor and adjust dosing as required. Follow-Up Labs: Trough Vancomycin - random Labs to be done on [date and time ordered]: 03/15/23 0600
[2023-03-14 08:25] LABS: Bedside Glucose 237 mg/dL (74-106)
[2023-03-14] MEDS: Pantoprazole Sodium 40 MG Tablet PO (09:39)
[2023-03-14] MEDS: APIXABAN 5 MG TABLET PO ×2 (09:39→21:53)
[2023-03-14] MEDS: Amiodarone 200 MG Tablet PO ×2 (09:39)
[2023-03-14 11:01] LABS: Mucous, Urine 0 SEEN /hpf (<or=2+)
[2023-03-14 11:02] LABS: Color, Urine Yellow (Yellow); Glucose, Dipstick Normal (Normal); Ketone-Dipstick Negative (Negative); Leukocyte Esterase-Dipstick 500 /ul (Negative); Nitrite-Dipstick Negative (Negative); Occult Blood-Urine 250 /ul (Negative); Protein-Dipstick 100 mg/dl (Negative); Specific Gravity, Urine 1.025 (1.002-1.030); Urine Bilirubin Dipstick Negative (Negative); Urine Clarity Sl. Cloudy (Clear); Urine Urobilinogen Normal (Normal)
[2023-03-14 11:09] LABS: Bacteria 1+ /hpf (None Seen); Red Blood Cells-Urine 25-50 SEEN /hpf (0-5); Squamous Epithelial Cells - UA 0-5 SEEN /hpf (5-10); White Blood Cells 25-50 SEEN /hpf (0-5); Yeast-Urine 2+ /hpf (None Seen)
--- NOTE | 2023-03-14 11:22 | PCM.PN.REN ---
Documented by User: ZAHRA Chinchilla 03/14/23 11:33 Subjective Subjective Resting quietly in bed. Alert. No overnight events. Objective Data Objective Data Vital Signs: Vital Signs Temp Pulse Resp BP Pulse Ox O2 Del Method O2 Flow Rate 97.0 F L 89 14 99/52 L 93 Nasal Cannula 3 03/14/23 10:00 03/14/23 11:00 03/14/23 11:00 03/14/23 11:00 03/14/23 11:00 03/14/23 11:00 03/14/23 11:00 FiO2 30 03/13/23 23:10 Oxygen Flow Rate (L/min) 3 Oxygen Delivery Method Nasal Cannula Weight: 133.4 kg Body Mass Index (BMI) 55.5 Intake & Output: Intake and Output for Last 24 Hours 03/12/23 03/13/23 03/14/23 23:59 23:59 23:59 Intake Total 100 / 300 360 / 360 20.65 / 20.65 Output Total 725 / 770 230 / 230 Balance 100 / 300 -365 / -410 -209.35 / -209.35 Lab / Micro Data Result Diagrams: 03/14/23 04:41 03/14/23 04:41 Labs: Laboratory Results - last 24 hr 03/13/23 12:52: POC Glucose 237 H 03/13/23 17:23: POC Glucose 236 H 03/14/23 00:04: POC Glucose 293 H 03/14/23 04:41: Sodium 130 L, Potassium 4.7, Chloride 91 L, Carbon Dioxide 34.0 H, Anion Gap 5, BUN 86 H, Creatinine 3.22 H, Estim Creat Clear Calc 10.52, Est GFR (MDRD) Af Amer 18 L, Est GFR (MDRD) Non-Af 15 L, BUN/Creatinine Ratio 26.7 H, Glucose 250 H, Calcium 7.8 L, Total Bilirubin 0.40, AST 24, ALT 23, Alkaline Phosphatase 163 H, Total Protein 5.3 L, Albumin 2.3 L, Globulin 3.0, Albumin/Globulin Ratio 0.8 L, Triglycerides 92, Cholesterol 87, LDL Cholesterol 30, VLDL Cholesterol 18, HDL Cholesterol 39 L 03/14/23 04:41: Random Vancomycin 14.4 03/14/23 04:41: WBC 6.8, RBC 3.22 L, Hgb 7.8 L, Hct 26.8 L, MCV 83.2, MCH 24.2 L, MCHC 29.1 L, RDW Std Deviation 51.4 H, RDW Coeff of Lola 17.0 H, Plt Count 236, MPV 9.7, Immature Gran % (Auto) 1.000 H, Neut % (Auto) 84.1 H, Lymph % (Auto) 5.0 L, [place] % (Auto) 9.5, Eos % (Auto) 0.1, Baso % (Auto) 0.3, Absolute Neuts (auto) 5.7, Absolute Lymphs (auto) 0.34 L, Nucleated RBC % 3.8, Differential Comment SCANNED, Hypochromasia 2+, Anisocytosis 1+ 03/14/23 06:27: POC Glucose 254 H 03/14/23 08:07: POC Glucose 237 H 03/14/23 10:55: Urine Color Yellow, Urine Clarity Sl. Cloudy, Urine pH 6.0, Ur Specific [place] 1.025, Urine Protein 100 H, Urine Glucose (UA) Normal, Urine Ketones Negative, Urine Occult Blood 250 H, Urine Nitrite Negative, Urine Bilirubin Negative, Urine Urobilinogen Normal, Ur Leukocyte Esterase 500 H, Urine RBC 25-50 SEEN, Urine WBC 25-50 SEEN, Ur Squamous Epith Cells 0-5 SEEN, Urine Bacteria 1+, Urine Mucus 0 SEEN, Urine Yeast 2+ Micro: Microbiology 03/12/23 12:15 Urine Catheter - Amaro Urine Culture - Final Presumptive C albicans Radiography Diagnostic Testing: Radiology Impression Echocardiogram 03/12/23 18:26 Interpretation Summary Technically difficult study with suboptimal images. Mild concentric left ventricular hypertrophy. The left ventricular ejection fraction is 50 %. Left ventricle dyssynchronous septal motion. Septal motion consistent with right ventricular volume and pressure overload. Moderately dilated right ventricle. Moderately severe global right ventricular systolic dysfunction. The left atrium is severely enlarged. Mild diffuse mitral valve thickening. Mild (1+) mitral valve insufficiency. Severe (4+) tricuspid valve insufficiency. Right ventricular systolic pressure estimated to be 57 mmHg. Mildly dilated aortic root. Ordering Physician: Eliane Rosenbaum Performed By: Viktor Petit RCS Rhythm Strip Rhythm Strip: A-fib Rate: 75 Ectopy: None Physical Exam Narrative Alert to name and place, having difficult time recalling recent events S1, S2, rhythm irregular rate controlled Lung sounds diminished with scattered rales, on nasal canula O2 Abdomen soft, rounded, positive bowel sounds, edema across abdominal wall Anasarca noted bilateral lower legs and thighs, edema noted bilateral arms and hands with left >right Indwelling Amaro scant yellow urine in bag Assessment & Plan Assessment/Plan (1) Acute renal failure (ARF): (2) Chronic kidney disease, stage 3b: (3) Anasarca: PLAN: Plan - Hypervolemic NICHOLAS superimposed on CKD. NICHOLAS felt to be multifactorial from hypotension, ATN, possible component of cardiorenal syndrome and recent infection. UOP ~725ml yesterday. Patient's kidney function had been worsening, urine output was declining, patient also noted to be hypotensive (despite midodrine) with hypervolemia therefore she was transferred to ICU from TCU and started on IV pressors/IV diuretics. SCr 1.45 mg/dL on admission to TCU, serum creatinine peaked 3.41 mg/dL on 03/12, today serum creatinine 3.22. There is no emergent or acute need for [employer]ARD [employer], potassium and acid-base acceptable. Patient is significantly hypervolemic and recommended continue with Lasix drip as ordered. Metolazone added. - Patient has CKD stage III with baseline creatinine around 1.5 mg/dL. - bps stabilized and tolerating IV diuresis and has been off levophed therefore possible transfer out of ICU -Echo 03/13 with EF of 50%, dyssynchronous septal motion consistent with right ventricular volume and pressure overload, moderately severe global right ventricular systolic dysfunction, severe tricuspid valve insufficiency, RVSP 57 -Hypervolemic hyponatremia, patient asymptomatic from hyponatremia and expect hyponatremia to improve as volume status improves - IV antibiotics, cefepime for UTI. BC no growth to date. new amaro placed - Patient is DNRCCA with no intubation. Patient's son is coming in from [place] today. Apparently conversation had been had with patient and her son and considering hospice. Documented by User: Dr. Jai Rodríguez MD 03/14/23 13:25 Objective Data Lab / Micro Data Result Diagrams: 03/14/23 04:41 03/14/23 04:41 Assessment & Plan Assessment/Plan (1) Acute renal failure (ARF): (2) Chronic kidney disease, stage 3b: (3) Anasarca: PLAN: Plan - Hypervolemic NICHOLAS superimposed on CKD. NICHOLAS felt to be multifactorial from hypotension, ATN, possible component of cardiorenal syndrome and recent infection. UOP ~725ml yesterday. Patient's kidney function had been worsening, urine output was declining, patient also noted to be hypotensive (despite midodrine) with hypervolemia therefore she was transferred to ICU from TCU and started on IV pressors/IV diuretics. SCr 1.45 mg/dL on admission to TCU, serum creatinine peaked 3.41 mg/dL on 03/12, today serum creatinine 3.22. There is no emergent or acute need for [employer]ARD [employer], potassium and acid-base acceptable. Patient is significantly hypervolemic and recommended continue with Lasix drip as ordered. Metolazone added. - Patient has CKD stage III with baseline creatinine around 1.5 mg/dL. - bps stabilized and tolerating IV diuresis and has been off levophed therefore possible transfer out of ICU -Echo 03/13 with EF of 50%, dyssynchronous septal motion consistent with right ventricular volume and pressure overload, moderately severe global right ventricular systolic dysfunction, severe tricuspid valve insufficiency, RVSP 57 -Hypervolemic hyponatremia, patient asymptomatic from hyponatremia and expect hyponatremia to improve as volume status improves - IV antibiotics, cefepime for UTI. BC no growth to date. new amaro placed - Patient is DNRCCA with no intubation. Patient's son is coming in from [place] today. Apparently conversation had been had with patient and her son and considering hospice. Patient was seen and examined independently. Massive edema, generalized anasarca. Baseline creatinine was 1.5. Recently sustained NICHOLAS in the setting of decompensated heart failure. Creatinine remains about the same. Amaro catheter has been changed. Urine output remains low despite Lasix drip. Likely diuretic resistant edema. Will be a poor candidate for dialysis overall. Family is coming in today.
[2023-03-14 11:29] LABS: Bedside Glucose 252 mg/dL (74-106)
[2023-03-14] MEDS: metOLazone 5 MG Tablet PO (11:36)
[2023-03-14] MEDS: Insulin Glargine-YFGN 100 UNIT/ML Pen SC (11:37)
[2023-03-14] MEDS: Furosemide 500 MG in Empty Viaflex 50 mL 1 EACH CONT INF (15:07)
[2023-03-14 18:07] LABS: Bedside Glucose 223 mg/dL (74-106)
[2023-03-14] MEDS: Atorvastatin Calcium 20 MG Tablet PO (21:53)
--- NOTE | 2023-03-14 23:14 | NURSING ---
Pt was heard calling out and states that her bipap was making her bite her lip and she could not breathe that way. Pt was put on her nasal cannula and respiratory therapist was updated. Ambrosio HARDING
[2023-03-15] VITALS (9 sets, daily range): BP systolic 84–110; BP diastolic 42–68; PULSE 61–92; RESP 18–20; TEMP 35.9–36.7; O2SAT 92–96; BMI 55.6
[2023-03-15] MEDS: Insulin Lispro 100 UNIT/ML INSULN.PEN SC ×4 (00:23→23:04)
[2023-03-15] MEDS: Furosemide 500 MG in Empty Viaflex 50 mL 1 EACH CONT INF (03:41)
[2023-03-15] MEDS: Levothyroxine 50 MCG Tablet PO (06:23)
[2023-03-15 06:49] LABS: Absolute Lymphocyte Count 0.36 X10^3/uL (0.83-4.51); Absolute Neutrophil Count 5.3 X10^3/uL (2.0-7.7); Basophil# 0.03 X10^3/uL; Basophil% 0.5 % (0-1); Eosinophil# 0.01 X10^3/uL; Eosinophils% 0.2 % (0-5); Hematocrit 25.8 % (37-47); Hemoglobin 7.4 g/dL (12.0-15.0); Lymphocyte # 0.36 X10^3/ul (0.83-4.51); Lymphocyte % 5.7 % (19-41); Mean Corp Hgb Conc 28.7 g/dL (32-36); Mean Corpuscular Hgb 24.1 pg (27.0-32.0); Mean Platelet Vol. 9.9 fl (6.2-12.0); Monocyte# 0.62 X10^3/uL; Monocyte% 9.7 % (0-10); NRBC Flagged by Analyzer 3.3 % (0-5); Neutrophil # 5.27 X10^3/uL (2.7-7.7); Neutrophil % 82.8 % (47-70); POSITIVE DIFFERENTIAL YES; Platelet Count 209 K/mm3 (150-450); RBC Distribution Width CV 17.1 % (11.6-14.6); RBC Distribution Width SD 52.5 fl (35.1-43.9); Red Blood Count 3.07 M/mm3 (4.2-5.4); White Blood Count 6.4 K/mm3 (4.4-11.0)
[2023-03-15 06:51] LABS: Differential Indicated SCAN CRITERIA MET
[2023-03-15 07:00] LABS: Magnesium 2.7 mg/dL (1.6-2.6)
[2023-03-15 07:07] LABS: Differential Comment SCANNED; Hypochromasia 2+
[2023-03-15 07:08] LABS: Vancomycin, Random Level 22.1 ug/mL (0.0-15.0)
[2023-03-15 07:13] LABS: ALB/GLOB Ratio 0.7 RATIO (0.9-2.4); AST(SGOT) 21 U/L (15-37); Alanine Aminotransfer ALT/SGPT 22 U/L (13-56); Albumin, Serum 2.2 g/dL (3.2-5.0); Alkaline Phosphatase 149 U/L (45-117); Anion Gap 9 (5-15); BUN 89 mg/dL (7-18); BUN/Creat Ratio 27.8 RATIO (10-20); Chloride 91 mmol/L (98-107); EST Glomerular Filtration Rate 15 mL/min (>60); Est Glom Filt Rate - Afr Amer 18 mL/min (>60); Estimated Creatinine Clearance 10.58 ml/min; Glucose 223 mg/dL (74-106); Potassium 4.3 mmol/L (3.5-5.1); Protein, Total 5.2 g/dL (6.4-8.2); Sodium Level 130 mmol/L (136-145)
--- NOTE | 2023-03-15 07:53 | PCM.RX.CS ---
Consult Pharmacy has been consulted to manage selected antiobiotic: Vancomycin Type of Consult: Follow-up Labs: Sodium 130 mmol/L (136-145) L 03/15/23 06:22 Potassium 4.3 mmol/L (3.5-5.1) 03/15/23 06:22 Chloride 91 mmol/L (98-107) L 03/15/23 06:22 Carbon Dioxide 30.0 mmol/L (21.0-32.0) 03/15/23 06:22 Anion Gap 9 (5-15) 03/15/23 06:22 BUN 89 mg/dL (7-18) H 03/15/23 06:22 Creatinine 3.20 mg/dL (0.55-1.02) H 03/15/23 06:22 Est GFR (MDRD) Af Amer 18 mL/min (>60) L 03/15/23 06:22 Est GFR (MDRD) Non-Af 15 mL/min (>60) L 03/15/23 06:22 BUN/Creatinine Ratio 27.8 RATIO (10-20) H 03/15/23 06:22 Glucose 223 mg/dL (74-106) H 03/15/23 06:22 Random Vancomycin 22.1 ug/mL (0.0-15.0) H 03/15/23 06:22 Microbiology: Microbiology 03/12/23 16:12 Blood Culture (Wb) - Port Blood Culture - Preliminary No growth in 48 hours. 03/12/23 16:12 Blood Culture (Wb) - Port Blood Culture - Preliminary No growth in 48 hours. 03/12/23 12:15 Urine Catheter - Bergeron Urine Culture - Final Presumptive C albicans Goal Trough: 15-20 mcg/mL Pharmacy Plan for Drug Dosing: VANCOMYCIN LEVEL RECEIVED Current Vancomycin Dose: Currently dosing based on levels d/t renal dysfunction Number of Doses Received: 2 (Last dose 03/14/23 @0937, 1250mg IV x1) Vancomycin Level: 22.1 Hours Since Last Dose: 21hr Renal Function: 3.2 Renal Function Trend: SCr still remains elevated Lab/Micro: BCx Pending Vancomycin Plan/Comments: Patient had a random vancomycin trough drawn this morning which resulted in a value of 22.1 (goal 15-20). Patient still with significant renal impairment. Will not give a vancomycin dose today and order a random level for tomorrow morning with AM labs. Pending Level: *RANDOM* 03/16/23 @0600 Pharmacy Service will continue to monitor and adjust dosing as required.
--- NOTE | 2023-03-15 08:21 | PCM.PN.HOSP ---
Reason for Visit Reason for Visit: Diagnoses Heart failure, unspecified (03/12/23) Hypotension, unspecified (03/12/23) Acute kidney failure, unspecified (03/12/23) Chronic kidney disease, stage 3b (03/12/23) Generalized edema (03/12/23) Personal history of other malignant neoplasm of bronchus and lung (03/12/23) Subjective Subjective Patient sitting up in bed, reports she is feeling somewhat better from a breathing perspective but still feels puffy Objective Data Objective Data Vital Signs: Vital Signs Temp Pulse Resp BP Pulse Ox O2 Del Method O2 Flow Rate 96.6 F L 86 18 110/52 L 96 Nasal Cannula 3 03/15/23 06:18 03/15/23 06:18 03/15/23 06:18 03/15/23 06:18 03/15/23 06:18 03/15/23 06:18 03/15/23 06:18 FiO2 40 03/14/23 10:24 Oxygen Flow Rate (L/min) 3 Oxygen Delivery Method Nasal Cannula Weight: 133.6 kg Body Mass Index (BMI) 55.6 Intake & Output: Intake and Output for Last 24 Hours 03/13/23 03/14/23 03/15/23 23:59 23:59 23:59 Intake Total 360 / 360 828.08 / 828.08 25.13 / 25.13 Output Total 725 / 770 580 / 705 450 / 450 Balance -365 / -410 248.08 / 123.08 -424.87 / -424.87 Lab / Micro Data Result Diagrams: 03/15/23 06:22 03/15/23 06:22 Labs: Laboratory Results - last 24 hr 03/14/23 08:07: POC Glucose 237 H 03/14/23 10:55: Urine Color Yellow, Urine Clarity Sl. Cloudy, Urine pH 6.0, Ur Specific [place] 1.025, Urine Protein 100 H, Urine Glucose (UA) Normal, Urine Ketones Negative, Urine Occult Blood 250 H, Urine Nitrite Negative, Urine Bilirubin Negative, Urine Urobilinogen Normal, Ur Leukocyte Esterase 500 H, Urine RBC 25-50 SEEN, Urine WBC 25-50 SEEN, Ur Squamous Epith Cells 0-5 SEEN, Urine Bacteria 1+, Urine Mucus 0 SEEN, Urine Yeast 2+ 03/14/23 11:09: POC Glucose 252 H 03/14/23 17:17: POC Glucose 223 H 03/15/23 06:22: WBC 6.4, RBC 3.07 L, Hgb 7.4 L, Hct 25.8 L, MCV 84.0, MCH 24.1 L, MCHC 28.7 L, RDW Std Deviation 52.5 H, RDW Coeff of Lola 17.1 H, Plt Count 209, MPV 9.9, Immature Gran % (Auto) 1.100 H, Neut % (Auto) 82.8 H, Lymph % (Auto) 5.7 L, [place] % (Auto) 9.7, Eos % (Auto) 0.2, Baso % (Auto) 0.5, Absolute Neuts (auto) 5.3, Absolute Lymphs (auto) 0.36 L, Nucleated RBC % 3.3, Differential Comment SCANNED, Hypochromasia 2+ 03/15/23 06:22: Sodium 130 L, Potassium 4.3, Chloride 91 L, Carbon Dioxide 30.0, Anion Gap 9, BUN 89 H, Creatinine 3.20 H, Estim Creat Clear Calc 10.58, Est GFR (MDRD) Af Amer 18 L, Est GFR (MDRD) Non-Af 15 L, BUN/Creatinine Ratio 27.8 H, Glucose 223 H, Calcium 8.0 L, Total Bilirubin 0.50, AST 21, ALT 22, Alkaline Phosphatase 149 H, Total Protein 5.2 L, Albumin 2.2 L, Globulin 3.0, Albumin/Globulin Ratio 0.7 L 03/15/23 06:22: Random Vancomycin 22.1 H 03/15/23 06:22: Magnesium 2.7 H Micro: Microbiology 03/12/23 16:12 Blood Culture (Wb) - Port Blood Culture - Preliminary No growth in 48 hours. 03/12/23 16:12 Blood Culture (Wb) - Port Blood Culture - Preliminary No growth in 48 hours. 03/12/23 12:15 Urine Catheter - Bergeron Urine Culture - Final Presumptive C albicans Rhythm Strip Rhythm Strip: A-fib Rate: 75 Ectopy: None Physical Exam Narrative General: Alert, no apparent distress, oriented to year, initially thought she is in [place] but was easily redirected HEENT: Atraumatic, normocephalic Eyes: Anicteric, normal conjunctiva, extraocular movements grossly intact Neck: Supple Respiratory: Diminished bilaterally but largely secondary to body habitus, normal respiratory effort Cardiovascular: Regular rate GI: Soft, nontender, nondistended Extremities: Left lower extremity wrapped, some moderate lower extremity edema Musculoskeletal: Moving all extremities Neuro: No overt focal neurological deficits Skin: Left lower extremity wrapped Psych: Cooperative Assessment & Plan Assessment/Plan (1) Acute renal failure (ARF): (2) Transient hypotension: (3) Chronic kidney disease, stage 3b: (4) History of lung cancer: PLAN: Plan #NICHOLAS on CKD stage IIIb -Admitted to ICU, will begin diuresis -Nephrology consult -Urine studies -Had renal ultrasound 03/08 with nonspecific renal parenchymal disease with no obstruction -03/13: Slightly worsened today, Lasix drip, wean pressors as tolerated, continue to monitor I's and O's, nephrology to follow -03/14: Creatinine improved from initial on 03/12, minimally worse than yesterday. On Lasix drip. Monitor I's and O's, await nephrology input -03/15: Has remained on Lasix drip, await nephrology input #UTI with chronic indwelling Bergeron catheter and recent Klebsiella UTI?ruled out, new diagnosis asymptomatic candiduria -Blood and urine cultures obtained, broad-spectrum antibiotics, will avoid fluids due to fluid overload -Pro-Sudhir 0.25, CRP 21, ESR 17 -03/13: UA with gram-positive organism, continue broad-spectrum antibiotics and monitor cultures -03/14: Urine culture today reporting presumptive C albicans, unclear underlying organism, has remained on cefepime, blood cultures no growth to date. Bergeron has been changed so repeat UA as this may have been colonization. We will decide further treatment/management pending results -03/15: Patient off antibiotics, ID evaluated and did not think antifungal or other therapy needed to be added at this time given Bergeron and asymptomatic nature #anasarca -Admitted to ICU on pressors and IV diuresis begun -Daily weights, I's and O's -We will order echocardiogram -troponin 42, BNP 1511 up from 1126 on 03/09 -03/13: Receiving IV diuresis, daily weights, I's and O's. Echocardiogram performed 03/13 with EF of 50%, dyssynchronous septal motion consistent with right ventricular volume and pressure overload, moderately severe global right ventricular systolic dysfunction, severe tricuspid valve insufficiency, RVSP 57 -03/14: IV diuresis, has been off of Levophed, likely can be transferred to PCU today -03/15: Presently in PCU, monitor I's and O's, on Lasix drip #Hypercapnia -Unclear etiology, may have component of obesity hypoventilation syndrome and/for RACH -Patient placed on BiPAP -03/13: BiPAP nightly #Hypotension -Appears to be on midodrine at baseline -Patient has been refractory however required ICU placement and started on pressors especially to allow for diuresis -Lactic acid within normal limits -03/13: When able can transition from Levophed back to midodrine however has required Levophed to tolerate IV diuresis, wean as tolerated -03/14: Has been tolerating diuresis off Levophed #LLE cellulitis -Broad-spectrum antibiotics -03/15: Empiric antibiotics discontinued #Anemia of unclear chronicity -Has been stable since 03/06 #Hyponatremia -Possibly secondary to fluid overload, urine and serum studies pending -03/13: Sodium 129 today, in part is low due to glucose of 239 as corrected sodium is 132, serum osmolality actually slightly elevated at 304. Do suspect in part this is due to heart failure. Continue to address underlying etiology #Atrial fibrillation -Hold beta-jeancarlos but will continue Amio and Eliquis #Hypothyroidism -Continue Synthroid -03/13: TSH 8.94 but free T4 is 1.02, will need repeated studies on outpatient basis, elevated TSH likely due to critical illness #Type 2 diabetes mellitus -Glucose checks and sliding scale insulin -Suspect glucose will improve with improvement in infection however may need additional long-acting coverage -03/15: Long-acting coverage added #Right pleural effusion and left perihilar masslike consolidation with history of lung cancer -Had thoracentesis previously at another facility which was reported to be transudate -Was seen on chest x-ray 03/09, chest x-ray appeared stable today 03/12/2023 -Spoke with son at length and patient reportedly was diagnosed with lung cancer 2 years ago and had chemo and radiation, had a recent biopsy and follows with Dr. Hyde but they do not know the results yet to know she had recurrent cancer. Has port present on upper left chest. She also reports she has had 4 total thoracentesis with 2 recently -03/13: Potential for thoracentesis pending progress -03/15: Pulm signed off, continue to monitor respiratory status #History of CAD status post CABG -Continue atorvastatin #History of prior subtotal gastrectomy -Monitor nutritional status #DVT ppx: On Estelaquarcadio Rosenbaum MD Time spent in the patient's overall evaluation,decision-making process, review of diagnostic data, adjustment of management, discussion with other providers, nursing nursing and ancillary staff involved in patient's care documentation, 38 minutes Charges/Coding Visit Charges Inpatient E&M: 97615 [facility] Hosp L3
--- NOTE | 2023-03-15 08:24 | PCM.PN.INT ---
Assessment & Plan Assessment/Plan (1) Acute renal failure (ARF): (2) CHF (congestive heart failure): (3) Transient hypotension: PLAN: Plan RECOMMENDATIONS: 1. Discontinue antibiotics. Defer to hospitalist on antifungal 2. Continue Lasix drip. Await nephrology recommendations 3. Continue discussions about goals of therapy 4. Volume removal as tolerated 5. Consider empiric BiPAP with sleep (AVAPS) 6. Hemodynamically stable on minimal nasal cannula oxygen. Will sign off from a pulmonary/critical care perspective IMPRESSIONS: 1. Acute on chronic kidney disease stage IIIb Patient with significant worsening in renal function. Patient reportedly is open to dialysis if necessary. Patient appears to have anasarca with significant swelling of the left upper extremity. Left upper extremity has been elevated. Patient is on Eliquis therapy at baseline. Patient tolerating Lasix drip hemodynamically. 2. UTI potential Patient with chronic indwelling Bergeron and recent Klebsiella UTI. Urinalysis is suggestive of candiduria. Urine cultures are now showing Hilary. Defer to primary service on whether this should be treated. Bergeron has been changed. We will discontinue antibiotics. 3. A-fib/hypothyroidism/diabetes mellitus/recurrent pleural effusion/history of lung cancer/CAD status post CABG/hypothyroidism/anemia Complicates care, management, recovery and prognosis. Patient has had multiple thoracentesis secondary to pleural effusion. Oxygenation appears to be doing stable at this time. Monitor blood sugars closely as patient will be at risk for both hypo and hyperglycemia. Poor long-term prognosis. Family reportedly wants to be aggressive for 24 to 48 hours to see if things can be improved. Consider addressing CODE STATUS with family given lack of improvement Subjective Subjective Patient did well overnight. No acute issues were reported. Patient subjectively feels improved compared to yesterday. Patient states that she is has an appetite today which is new for me. Objective Data Objective Data Vital Signs: Vital Signs Temp Pulse Resp BP Pulse Ox O2 Del Method O2 Flow Rate 35.9 C L 86 18 110/52 L 96 Nasal Cannula 3 03/15/23 06:18 03/15/23 06:18 03/15/23 06:18 03/15/23 06:18 03/15/23 06:18 03/15/23 06:18 03/15/23 06:18 FiO2 40 03/14/23 10:24 Oxygen Flow Rate (L/min) 3 Oxygen Delivery Method Nasal Cannula Weight: 133.6 kg Body Mass Index (BMI) 55.6 Intake & Output: Intake and Output for Last 24 Hours 03/13/23 03/14/23 03/15/23 23:59 23:59 23:59 Intake Total 360 / 360 828.08 / 828.08 25.13 / 25.13 Output Total 725 / 770 580 / 705 450 / 450 Balance -365 / -410 248.08 / 123.08 -424.87 / -424.87 Lab / Micro Data Attestation: I reviewed the patient's lab results. Result Diagrams: 03/15/23 06:22 03/15/23 06:22 Labs: Laboratory Results - last 24 hr 03/14/23 08:07: POC Glucose 237 H 03/14/23 10:55: Urine Color Yellow, Urine Clarity Sl. Cloudy, Urine pH 6.0, Ur Specific [place] 1.025, Urine Protein 100 H, Urine Glucose (UA) Normal, Urine Ketones Negative, Urine Occult Blood 250 H, Urine Nitrite Negative, Urine Bilirubin Negative, Urine Urobilinogen Normal, Ur Leukocyte Esterase 500 H, Urine RBC 25-50 SEEN, Urine WBC 25-50 SEEN, Ur Squamous Epith Cells 0-5 SEEN, Urine Bacteria 1+, Urine Mucus 0 SEEN, Urine Yeast 2+ 03/14/23 11:09: POC Glucose 252 H 03/14/23 17:17: POC Glucose 223 H 03/15/23 06:22: WBC 6.4, RBC 3.07 L, Hgb 7.4 L, Hct 25.8 L, MCV 84.0, MCH 24.1 L, MCHC 28.7 L, RDW Std Deviation 52.5 H, RDW Coeff of Lola 17.1 H, Plt Count 209, MPV 9.9, Immature Gran % (Auto) 1.100 H, Neut % (Auto) 82.8 H, Lymph % (Auto) 5.7 L, [place] % (Auto) 9.7, Eos % (Auto) 0.2, Baso % (Auto) 0.5, Absolute Neuts (auto) 5.3, Absolute Lymphs (auto) 0.36 L, Nucleated RBC % 3.3, Differential Comment SCANNED, Hypochromasia 2+ 03/15/23 06:22: Sodium 130 L, Potassium 4.3, Chloride 91 L, Carbon Dioxide 30.0, Anion Gap 9, BUN 89 H, Creatinine 3.20 H, Estim Creat Clear Calc 10.58, Est GFR (MDRD) Af Amer 18 L, Est GFR (MDRD) Non-Af 15 L, BUN/Creatinine Ratio 27.8 H, Glucose 223 H, Calcium 8.0 L, Total Bilirubin 0.50, AST 21, ALT 22, Alkaline Phosphatase 149 H, Total Protein 5.2 L, Albumin 2.2 L, Globulin 3.0, Albumin/Globulin Ratio 0.7 L 03/15/23 06:22: Random Vancomycin 22.1 H 03/15/23 06:22: Magnesium 2.7 H Micro: Microbiology 03/12/23 16:12 Blood Culture (Wb) - Port Blood Culture - Preliminary No growth in 48 hours. 03/12/23 16:12 Blood Culture (Wb) - Port Blood Culture - Preliminary No growth in 48 hours. 03/12/23 12:15 Urine Catheter - Bergeron Urine Culture - Final Presumptive C albicans Rhythm Strip Rhythm Strip: A-fib Rate: 82 Ectopy: None Physical Exam Const alert Constitutional Narrative: Oriented to person and time. Morbidly obese with anasarca. HEENT normocephalic and head/scalp atraumatic Eyes PERRL, EOMs intact bilaterally and conjunctivae normal Neck full ROM Neck Narrative: Unable to assess JVD secondary to body habitus Resp Resp Narrative: Difficult to assess posteriorly secondary to body habitus Auscultation: diminished lung sounds; Negative for rales, rhonchi or wheezes Cardio S1 normal heart sound, S2 normal heart sound, no murmurs, no rub and no gallops Cardio Narrative: Distant heart sounds secondary to body habitus Rhythm: abnormal rhythm irregularly irregular GI normal to inspection, nondistended, normoactive bowel sounds Extremity Extremity Narrative: Significant swelling of the left upper extremity. Mild improvement. General Extremity: edema Skin Skin Narrative: Dermal atrophy. Left lower extremity not evaluated as this was wrapped, but no surrounding erythema noted Neuro CN's II-XII intact bilaterally, moves all extremities and no focal motor deficits Psych cooperative and affect normal Charges/Coding Visit Charges Inpatient E&M: 47199 Subs Hosp L2
[2023-03-15] MEDS: Pantoprazole Sodium 40 MG Tablet PO (09:56)
[2023-03-15] MEDS: APIXABAN 5 MG TABLET PO ×2 (09:56→23:04)
[2023-03-15] MEDS: Insulin Glargine-YFGN 100 UNIT/ML Pen 10 UNIT SC (09:57)
--- NOTE | 2023-03-15 10:04 | PCM.CONS.GEN ---
Assessment & Plan Assessment/Plan (1) Anasarca: (2) Acute renal failure (ARF): (3) Chronic kidney disease, stage 3b: (4) Candiduria: PLAN: Ucx shows candiduria, but asymptomatic with amaro in place. No need for antifungal at this time. Treated for enterobacter uti at [place] (keflex may have been for cellulitis is it is unlikely to have worked on her enterobacter). Will follow as needed, thank you HPI Consult Data Date of Consult: 03/15/23 HPI Narrative Reason for Consultation: uti HPI Narrative: RAMÓN FARNSWORTH, is a 82 F who was initially admitted to [place] 02/08/23 with NICHOLAS, hyperkalemia, bronchitis, LLE cellulitis, and enterobacter uti. Initially given vanc/levaquin. Abx narrowed eventually and finished course with po keflex. Transferred to TCU here 02/21 off of abx. While at TCU, had worsening NICHOLAS and anasarca, drainage from LLE. Transferred to icu 03/12. Put on empiric vanc/cefepime, now off abx, out of icu, feeling ok. Amaro in place, Cr improving. Neph following. Full ROS performed and neg except as noted above. [facility] Medical History Acute kidney injury Chronic kidney disease, stage 3b Debility Diabetes mellitus History of lung cancer Hyperkalemia Hyperlipidemia Hypertension Left leg cellulitis Pleural effusion Sepsis Urinary retention Urinary tract infection Home Medications amiodarone 200 mg tablet 200 mg PO DAILY HEART 02/27/23 [History Last Taken 03/12/23 08:01] apixaban 5 mg tablet (Eliquis) 5 mg PO BID Anticoagulant 02/27/23 [History Last Taken 03/12/23 06:18] atorvastatin 20 mg tablet 20 mg PO QHS Cholesterol 02/27/23 [History Last Taken 03/11/23 21:05] bumetanide 1 mg tablet 1 mg PO DAILY FLUID 02/27/23 [History Last Taken Unknown] acetaminophen 500 mg tablet (Acetaminophen Extra Strength) 1,000 mg PO Q6H PRN PAIN SCORE 1-10 03/12/23 [History Last Taken 03/11/23 23:09] ceftriaxone 1 gram intravenous solution 1 g IV Q24H 03/12/23 [History Last Taken 03/12/23 10:15] cyclobenzaprine 5 mg tablet 5 mg PO TID PRN Spasms 03/12/23 [History Last Taken 03/12/23 00:42] doxepin 10 mg capsule 10 mg PO QHS SLEEP 03/12/23 [History Last Taken 03/11/23 21:05] folic acid 1 mg tablet 1 mg PO BREAKFAST SUPPLEMENT 03/12/23 [History Last Taken 03/12/23 08:01] gabapentin 100 mg capsule 100 mg PO BID SEIZURE 03/12/23 [History Last Taken 03/12/23 06:19] insulin lispro 100 unit/mL subcutaneous pen See Rx Instructions .Route .COMPLEX 03/12/23 [History Last Taken 03/12/23] levothyroxine 50 mcg tablet 50 mcg PO DAILY THYROID 03/12/23 [History Last Taken 03/12/23 06:19] magnesium hydroxide 400 mg/5 mL oral suspension 30 ml PO X1 PRN Constipation 03/12/23 [History Last Taken 03/05/23 08:49] menthol 0.44 %-zinc oxide 20.6 % topical ointment (Calmoseptine) 1 applic topical BID SKIN 03/12/23 [History Last Taken 03/12/23 06:19] metoprolol succinate 50 mg tablet,extended release 24 hr 50 mg PO DAILY HEART 03/12/23 [History Last Taken Unknown] midodrine 10 mg tablet 10 mg PO 4X/DAY 03/12/23 [History Last Taken 03/12/23 06:22] mirtazapine 7.5 mg tablet 7.5 mg PO QHS SLEEP 03/12/23 [History Last Taken 03/11/23 21:05] nystatin 100,000 unit/gram topical powder (Nystop) 1 applic topical BID SKIN 03/12/23 [History Last Taken 03/12/23 06:19] omeprazole 20 mg capsule,delayed release 20 mg PO DAILY GERD 03/12/23 [History Last Taken Unknown] pantoprazole 40 mg tablet,delayed release 40 mg PO DAILY GERD 03/12/23 [History Last Taken 03/12/23 06:19] sennosides 8.6 mg-docusate sodium 50 mg tablet (Senna with Docusate Sodium) 1 tab PO BID CONSTIPATION 03/12/23 [History Last Taken 07/01/21] Allergy/AdvReac Type Severity Reaction Status Date / Time kiwi Allergy Food Verified 03/12/23 14:14 Allergy morphine Allergy Rash Verified 03/12/23 14:14 Penicillins Allergy Rash Verified 03/12/23 14:14 shellfish derived Allergy Food Verified 03/12/23 14:14 Allergy Family History Mother CVA (cerebral vascular accident) Heart disease Father Diabetes Heart disease Surgical History History of carpal tunnel surgery of left wrist History of coronary artery bypass graft History of gastric bypass History of lung biopsy History of total knee arthroplasty Social History household members: none Smoking Status: Former smoker alcohol intake: never substance use type: does not use Physical Exam Const alert and no apparent distress General Appearance: cooperative HEENT normocephalic and head/scalp atraumatic Eyes PERRL and EOMs intact bilaterally Neck supple and No nodes Resp normal air movement and clear to auscultation bilaterally Cardio regular rate and regular rhythm GI soft to palpation, non-tender and non-distended Extremity General Extremity: edema Skin Skin Narrative: No erythema. Serous drainage from LLE. Neuro CN's II-XII intact bilaterally Lab / Micro Data Attestation: I reviewed the patient's lab results. Result Diagrams: 03/15/23 06:22 03/15/23 06:22 Labs: Laboratory Results - last 24 hr 03/14/23 10:55: Urine Color Yellow, Urine Clarity Sl. Cloudy, Urine pH 6.0, Ur Specific [place] 1.025, Urine Protein 100 H, Urine Glucose (UA) Normal, Urine Ketones Negative, Urine Occult Blood 250 H, Urine Nitrite Negative, Urine Bilirubin Negative, Urine Urobilinogen Normal, Ur Leukocyte Esterase 500 H, Urine RBC 25-50 SEEN, Urine WBC 25-50 SEEN, Ur Squamous Epith Cells 0-5 SEEN, Urine Bacteria 1+, Urine Mucus 0 SEEN, Urine Yeast 2+ 03/14/23 11:09: POC Glucose 252 H 03/14/23 17:17: POC Glucose 223 H 03/15/23 06:22: WBC 6.4, RBC 3.07 L, Hgb 7.4 L, Hct 25.8 L, MCV 84.0, MCH 24.1 L, MCHC 28.7 L, RDW Std Deviation 52.5 H, RDW Coeff of Lola 17.1 H, Plt Count 209, MPV 9.9, Immature Gran % (Auto) 1.100 H, Neut % (Auto) 82.8 H, Lymph % (Auto) 5.7 L, [place] % (Auto) 9.7, Eos % (Auto) 0.2, Baso % (Auto) 0.5, Absolute Neuts (auto) 5.3, Absolute Lymphs (auto) 0.36 L, Nucleated RBC % 3.3, Differential Comment SCANNED, Hypochromasia 2+ 03/15/23 06:22: Sodium 130 L, Potassium 4.3, Chloride 91 L, Carbon Dioxide 30.0, Anion Gap 9, BUN 89 H, Creatinine 3.20 H, Estim Creat Clear Calc 10.58, Est GFR (MDRD) Af Amer 18 L, Est GFR (MDRD) Non-Af 15 L, BUN/Creatinine Ratio 27.8 H, Glucose 223 H, Calcium 8.0 L, Total Bilirubin 0.50, AST 21, ALT 22, Alkaline Phosphatase 149 H, Total Protein 5.2 L, Albumin 2.2 L, Globulin 3.0, Albumin/Globulin Ratio 0.7 L 03/15/23 06:22: Random Vancomycin 22.1 H 03/15/23 06:22: Magnesium 2.7 H Micro: Microbiology 03/12/23 16:12 Blood Culture (Wb) - Port Blood Culture - Preliminary No growth in 48 hours. 03/12/23 16:12 Blood Culture (Wb) - Port Blood Culture - Preliminary No growth in 48 hours. Rhythm Strip Rhythm Strip: A-fib Rate: 82 Ectopy: None
--- NOTE | 2023-03-15 12:20 | CASEMGMT ---
BECKY spoke with Zia from Hospice. Zia was in to talk with patient's son Oswaldo and daughter in law and they would like patient to go to [facility] on [facility]. EBCKY spoke with Oswaldo. Introduced self and role at [facility]. BECKY confirmed the plan. BECKY let Oswaldo know that BECKY will work on communicating with [facility]. BECKY also updated physician and head charger. Meredith Asher MARKETING INTERN [place]
[2023-03-15 12:44] LABS: Bedside Glucose 235 mg/dL (74-106)
--- NOTE | 2023-03-15 13:25 | CASEMGMT ---
Juana oliver/antonia development and planning engineer spoke with [facility] and they are willing to do a one time contract with [facility]. [facility] also asked that a referral be sent as they thought patient went somewhere else. Plan: SNF on [facility]. Hopefully [facility] as long as they are still accepting patient. Meredith Asher VOLUNTEER FIREFIGHTER [place]
--- NOTE | 2023-03-15 13:51 | CASEMGMT ---
[facility] accepted patient as long as they can work out a contract with [facility]. Await contract signing between the senior care and hospice. Likely be tomorrow. BECKY spoke with patient's son and daughter in law letting them know patient will not be going today. BECKY told them it will likely be tomorrow vs weekend. They thanked BECKY for the update. Plan: [facility] under [facility] pending contract between the two. Meredith ARRIAGA
--- NOTE | 2023-03-15 14:26 | PCM.PN.REN ---
Subjective Subjective Resting quietly in bed. Patient's son and [id number] at bedside. No overnight events. Objective Data Objective Data Vital Signs: Vital Signs Temp Pulse Resp BP Pulse Ox O2 Del Method O2 Flow Rate 98.1 F 61 18 88/51 L 95 Nasal Cannula 2 03/15/23 13:05 03/15/23 13:05 03/15/23 13:05 03/15/23 13:05 03/15/23 13:05 03/15/23 13:05 03/15/23 13:05 FiO2 40 03/14/23 10:24 Oxygen Flow Rate (L/min) 2 Oxygen Delivery Method Nasal Cannula Weight: 133.6 kg Body Mass Index (BMI) 55.6 Intake & Output: Intake and Output for Last 24 Hours 03/13/23 03/14/23 03/15/23 23:59 23:59 23:59 Intake Total 360 / 360 828.08 / 828.08 25.13 / 25.13 Output Total 725 / 770 580 / 705 575 / 575 Balance -365 / -410 248.08 / 123.08 -549.87 / -549.87 Lab / Micro Data Result Diagrams: 03/15/23 06:22 03/15/23 06:22 Labs: Laboratory Results - last 24 hr 03/14/23 17:17: POC Glucose 223 H 03/15/23 06:22: WBC 6.4, RBC 3.07 L, Hgb 7.4 L, Hct 25.8 L, MCV 84.0, MCH 24.1 L, MCHC 28.7 L, RDW Std Deviation 52.5 H, RDW Coeff of Lola 17.1 H, Plt Count 209, MPV 9.9, Immature Gran % (Auto) 1.100 H, Neut % (Auto) 82.8 H, Lymph % (Auto) 5.7 L, [place] % (Auto) 9.7, Eos % (Auto) 0.2, Baso % (Auto) 0.5, Absolute Neuts (auto) 5.3, Absolute Lymphs (auto) 0.36 L, Nucleated RBC % 3.3, Differential Comment SCANNED, Hypochromasia 2+ 03/15/23 06:22: Sodium 130 L, Potassium 4.3, Chloride 91 L, Carbon Dioxide 30.0, Anion Gap 9, BUN 89 H, Creatinine 3.20 H, Estim Creat Clear Calc 10.58, Est GFR (MDRD) Af Amer 18 L, Est GFR (MDRD) Non-Af 15 L, BUN/Creatinine Ratio 27.8 H, Glucose 223 H, Calcium 8.0 L, Total Bilirubin 0.50, AST 21, ALT 22, Alkaline Phosphatase 149 H, Total Protein 5.2 L, Albumin 2.2 L, Globulin 3.0, Albumin/Globulin Ratio 0.7 L 03/15/23 06:22: Random Vancomycin 22.1 H 03/15/23 06:22: Magnesium 2.7 H 03/15/23 12:23: POC Glucose 235 H Micro: Microbiology 03/12/23 16:12 Blood Culture (Wb) - Port Blood Culture - Preliminary No growth in 48 hours. 03/12/23 16:12 Blood Culture (Wb) - Port Blood Culture - Preliminary No growth in 48 hours. 03/12/23 12:15 Urine Catheter - Amaro Urine Culture - Final Presumptive C albicans Rhythm Strip Rhythm Strip: A-fib Rate: 82 Ectopy: None Physical Exam Narrative Alert to name and place, having difficult time recalling recent events S1, S2, rhythm irregular rate controlled Lung sounds diminished with scattered rales, on nasal canula O2 Abdomen soft, rounded, positive bowel sounds, edema across abdominal wall Anasarca noted bilateral lower legs and thighs, edema noted bilateral arms and hands with left >right Indwelling Amaro scant yellow urine in bag Assessment & Plan Assessment/Plan (1) Acute renal failure (ARF): (2) Chronic kidney disease, stage 3b: (3) Anasarca: PLAN: Plan - Hypervolemic NICHOLAS superimposed on CKD. NICHOLAS felt to be multifactorial from hypotension, ATN, possible component of cardiorenal syndrome and recent infection. UOP ~600ml yesterday. Patient's kidney function had been worsening, urine output was declining, patient also noted to be hypotensive (despite midodrine) with hypervolemia therefore she was transferred to ICU from TCU and started on IV pressors/IV diuretics. SCr 1.45 mg/dL on admission to TCU, serum creatinine peaked 3.41 mg/dL on 03/12, today serum creatinine 3.20. There is no emergent or acute need for CLIMATOLOGIST, potassium and acid-base acceptable. Patient is significantly hypervolemic and is on lasix gtt 20mg/hr. Metolazone added. Patient likely has diuretic resistant edema. Likely patient would be poor candidate for dialysis. Discussed hemodialysis, role of dialysis, risks of dialysis wtih patient's family who are at bedside. Questions answered. - Patient has CKD stage III with baseline creatinine around 1.5 mg/dL. - bps stabilized and tolerating IV diuresis. On midodrine -Echo 03/13 with EF of 50%, dyssynchronous septal motion consistent with right ventricular volume and pressure overload, moderately severe global right ventricular systolic dysfunction, severe tricuspid valve insufficiency, RVSP 57 -Hypervolemic hyponatremia, patient asymptomatic from hyponatremia and expect hyponatremia to improve as volume status improves - IV antibiotics, cefepime for UTI. BC no growth to date. new amaro placed - Patient is DNRCCA with no intubation. Lengthy discussion today with patient, son and [id number] and decision made to enroll into hospice program with no aggressive treatment including hemodialysis
--- NOTE | 2023-03-15 14:43 | CHAPLAIN ---
Type of Pastoral Visit ___ Initial Visit _x__ Follow-up Visit ___ On-call Visit ___ General Patient Visit ___ Spiritual Assessment ___ Family Conference ___ Bereavement ___ Rapid Response ___ Code Blue ___ Other (describe below) Pastoral Care Referral From _x__ Patient ___ Family ___ Nurse ___ Physician ___ Criminal Justice Faculty ___ Administrative Underwriter ___ Other (describe below) Sacrament/Intervention _x__ Active listening ___ Anointing ___ Spiritism ___ Bereavement ___ Communion _x__ Trina exploration ___ _x__ Life review _x__ Prayer ___ Reconciliation ___ Sacrament of Sick _x__ Supportive presence ___ Wedding ___ Other (describe below) Pastoral Comments patient welcomes support and starts out with I'm dying; pt speaks of hospice decision and that she as nothing more that she can p do; pt makes statement about 'hoping I'll go to heaven; listening to feelings and family relationships so patient can process; discussed assurance of salvation and heaven; prayer given and supportive time to listen and hear
[2023-03-15] MEDS: Midodrine HCl 5 MG Tablet PO (15:37)
--- NOTE | 2023-03-15 16:41 | PCM.HOSP.N ---
Hospitalist Note Patient and family met with hospice today, decision was for patient to go to SNF with hospice. Presently [facility] and patient will likely be able to go tomorrow. Given she will be going hospice with no further aggressive interventions have discontinued a.m. labs and we will space out vital checks.
--- NOTE | 2023-03-15 18:24 | NURSING ---
Patient refused 1st administration of Gabriel, states that She is dying so what does it matter. Patient also noted to have no appetite and refused dinner but took a few bites of pineapple.
[2023-03-15 18:30] LABS: Bedside Glucose 212 mg/dL (74-106)
--- NOTE | 2023-03-15 19:00 | NURSING ---
emergency documentation started 03/15/23 502
[2023-03-15] MEDS: MELATONIN 3 MG TABLET PO (23:03)
[2023-03-16 04:34] VITALS: BP 94/61; PULSE 78; RESP 18; TEMP 36.3; O2SAT 99
[2023-03-16] MEDS: Furosemide 500 MG in Empty Viaflex 50 mL 1 EACH CONT INF (04:41)
[2023-03-16] MEDS: Levothyroxine 50 MCG Tablet PO (04:49)
[2023-03-16 07:38] VITALS: O2SAT 92
[2023-03-16] MEDS: Insulin Lispro 100 UNIT/ML INSULN.PEN SC ×2 (07:55→12:10)
[2023-03-16] MEDS: Juven (unflavored) Packet 1 PACKET PO (07:55)
[2023-03-16] MEDS: Midodrine HCl 5 MG Tablet PO ×3 (07:55→17:29)
[2023-03-16 09:44] VITALS: BP 90/48; PULSE 88; RESP 20; TEMP 36.1; O2SAT 94
[2023-03-16] MEDS: Amiodarone 200 MG Tablet PO (09:56)
[2023-03-16] MEDS: Pantoprazole Sodium 40 MG Tablet PO (09:56)
[2023-03-16] MEDS: APIXABAN 5 MG TABLET PO (09:56)
[2023-03-16] MEDS: Insulin Glargine-YFGN 100 UNIT/ML Pen 10 UNIT SC (09:57)
--- NOTE | 2023-03-16 10:08 | CASEMGMT ---
BECKY received a call from [facility] with Hospice this am. They sent a contract to [facility] and are waiting on [facility] to sign it. Zia will let BECKY know when it is okay to send the patient. Plan: [facility] on [facility] pending contract being signed. Meredith ARRIAGA
[2023-03-16 10:21] LABS: Bedside Glucose 175 mg/dL (74-106)
[2023-03-16] MEDS: Acetaminophen 325 MG Tablet 650 MG PO (11:00)
[2023-03-16 12:32] LABS: Bedside Glucose 154 mg/dL (74-106)
--- NOTE | 2023-03-16 12:52 | PCM.DC.SUM ---
Providers Date of Admission: 03/12/23 Date of Discharge: 03/16/23 Primary Care Physician: Jarred Gupta Consultations 03/12/23 15:37 Consult: Activity Aid / Pulmonary Medicine Routine Consulting Provider: Pulmonary Medicine benjy Foy Reason for Consult: Hypotension EMERGENT Consult: No Notified: Yes Date Notified: 03/12/23 Time Notified: 15:26 Method of Notification: Verbal Consult: Nephrology Routine Consulting Provider: Jai Rodríguez Reason for Consult: worsening kidney fxn, was being followed in tcu EMERGENT Consult: No Notified: Yes Date Notified: 03/12/23 Time Notified: 16:10 Method of Notification: Answering Service Consult: Onc/Wound/pharmacy operations manager Routine Comment: Reason for Consult:: LLE wound 03/14/23 15:00 Consult: Infectious Disease Routine Consulting Provider: Clayton Kraus Reason for Consult: Ucx GP cocci, changed to michela, initial UA w/ bact + yeast, abx recs EMERGENT Consult: No Notified: Yes Date Notified: 03/14/23 Time Notified: 16:32 Method of Notification: Text Reason For Visit: ARF, HYPOTENSION Diagnosis Discharge Diagnosis (1) Acute renal failure (ARF): Status: Acute Code(s): N17.9 - Acute kidney failure, unspecified (2) Chronic kidney disease, stage 3b: Status: Acute Code(s): N18.32 - Chronic kidney disease, stage 3b (3) Anasarca: Status: Acute Code(s): R60.1 - Generalized edema Plan Discharge diagnoses: #1. NICHOLAS on CKD stage IIIb w/ Anasarca secondary to hyotension, ATN, cardiorenal syndrome, infection #2. Acute CHF Exacerbation, Diastolic #3. Candiduria, asymptomatic #4. Acute UTI ruled out (UCx with michela only), recent resolved Klebsella UTI with chronic indwelling amaro catheter #5. Hyponatremia, hypervolemic, secondary to CHF/overload #6. Right pleural effusion and left perihilar masslike consolidation with history of lung cancer, unclear if recurrence #7. Paroxysmal atrial fibrillation #8. Left lower extremity cellulitis #9. Diabetes mellitus type II #10. Morbid Obesity #11. Hypothyroidism #12. Hx prior subtotal gastrectomy #13. CAD s/p CABG #14. Chronic anemia #15. Hypertension #16. Hyperlipidemia #17. CODE status: DNR-CC Medications at Discharge Home Medications amiodarone 200 mg tablet 200 mg PO DAILY HEART 02/27/23 apixaban 5 mg tablet (Eliquis) 5 mg PO BID Anticoagulant 02/27/23 atorvastatin 20 mg tablet 20 mg PO QHS Cholesterol 02/27/23 acetaminophen 500 mg tablet (Acetaminophen Extra Strength) 1,000 mg PO Q6H PRN PAIN SCORE 1-10 03/12/23 cyclobenzaprine 5 mg tablet 5 mg PO TID PRN Spasms 03/12/23 doxepin 10 mg capsule 10 mg PO QHS SLEEP 03/12/23 gabapentin 100 mg capsule 100 mg PO BID SEIZURE 03/12/23 levothyroxine 50 mcg tablet 50 mcg PO DAILY THYROID 03/12/23 magnesium hydroxide 400 mg/5 mL oral suspension 30 ml PO X1 PRN Constipation 03/12/23 menthol 0.44 %-zinc oxide 20.6 % topical ointment (Calmoseptine) 1 applic topical BID SKIN 03/12/23 midodrine 10 mg tablet 10 mg PO 4X/DAY 03/12/23 mirtazapine 7.5 mg tablet 7.5 mg PO QHS SLEEP 03/12/23 nystatin 100,000 unit/gram topical powder (Nystop) 1 applic topical BID SKIN 03/12/23 pantoprazole 40 mg tablet,delayed release 40 mg PO DAILY GERD 03/12/23 sennosides 8.6 mg-docusate sodium 50 mg tablet (Senna with Docusate Sodium) 1 tab PO BID CONSTIPATION 03/12/23 bumetanide 1 mg tablet 1 mg PO DAILY FLUID 30 days #30 tabs 03/16/23 hydrocodone-acetaminophen 5-325mg 5mg-325mg 1 tab PO Q4H PRN pain 5 days #20 tabs 03/16/23 Hospital Course Operations None Procedures 2-D Echocardiogram, EKG and - (Lasix drip.) Summary of Care Provided Minutes Spent on Discharge: 35 Hospital Course: The patient is an 82 y/o F w/ PMHx: Morbid Obesity, CKD stage IIIb, PAF, Diabetes mellitus type II, Hypothyroidism, s/p Subtotal gastrectomy status, CAD s/p CABG, HTN, HLD, Chronic anemia who presented to the [facility] ED on 03/12/23 as a transfer from TCU secondary to worsening hypotension and fluid overload as well as worsening renal function. Patient previously been in [facility] 02/08/2023 for sepsis and hyperkalemia at that time with noted Klebsiella UTI as well as left lower extremity cellulitis treated with both vancomycin and Levaquin per report eventually de-escalated to oral Keflex. Of note given hypotension her Bumex while in TCU had been held and she had increasing doses of midodrine administered. Given hypotension patient was initially admitted to the ICU, recent renal ultrasound 03/08 with nonspecific renal parenchymal disease with no obstruction, notable anasarca therefore patient given renal function placed on Lasix drip and did require pressor therapy with nephrology consulted and involved as well as senior mechanical project manager involvement, initially concern for UTI with chronic indwelling Amaro catheter with broad-spectrum antibiotic therapy and blood and urine culture obtained however urine culture only resulted with albicans therefore antibiotic therapies were de-escalated on 03/15/2023 with infectious disease involvement, patient is anasarca despite IV diuresis remains significantly evidence with initial BNP 1511 which had been up from 1126 on 03/09/2023, echocardiogram 03/13/2023 with EF 50%, dyssynchronous septal motion consistent with RV volume and pressure overload, moderately severe global RV systolic dysfunction, severe tricuspid valve insufficiency, RVSP 57, patient with ABGs notable for also hypercapnia suspected secondary to hypoventilation syndrome and/or RACH with BiPAP usage at night and while in the ICU, eventually transitioned off of pressor therapy however with aggressive ongoing midodrine. Patient also with recent history of thoracentesis with right pleural effusion and left parathyroid mass like consolidation with history of lung cancer at outside facility reported as transudate, diagnosed with cancer approximately 2 years prior status post chemotherapy and radiation with recent biopsy but unclear results but apparently this has been a recurrent issue requiring at least 4 recent thoracenteses being performed. Given patient persistent decline and significant underlying comorbidities 03/15/2023 family and patient requested hospice transition with hospice consultation placed. 03/16/2023 patient transition to DNRCC status and transferred to facility under hospice care. DAY OF DISCHARGE PROGRESS NOTE: Subjective: Patient with ongoing soft blood pressures on Lasix drip which was continued only for assistance for patient significant dyspnea and ongoing anasarca primarily for comfort pending transition to hospice. Patient main complaint is significant diffuse discomfort and pain to her extremities as well as ongoing dyspnea especially with any movement or exertion. Discussed patient allergies and pain medications were also started. Patient hospice set up achieved and patient discharged to hospice with comfort orders placed prior to her discharge. Objective: T97, heart rate 88, BP 90/48, respiratory rate 20, 94% on 2 L nasal cannula. Physical Examination: General: Awakens but quickly falls back asleep and is not markedly alert, when she is awake oriented to self and place but is confused and fatigued easily falling back asleep, remains cooperative, seated upright in the PCU bed, lethargic. Skin: Normal color, normal turgor, no icterus, no cyanosis except for notable various staged ecchymoses as well as significant bilateral lower extremity chronic venous stasis skin changes. HEENT: AT/NC, EOMI, PERRLA, dry MM. Lungs: Significantly diminished, greater bilateral bases, very distant, mildly increased respiratory rate but no distress, very distant Rales, no obvious rhonchi or wheezing. Heart: Currently, regular rate and rhythm; no gallop, rub audible. Abdomen: Soft, morbidly obese, NTTP, difficult to assess distention but patient remains significantly anasarcic, distant BS. Extremities: No cyanosis, no clubbing significant peripheral edema present. Neurological: Awakens but quickly falls back asleep and is not markedly alert, when she is awake oriented to self and place but is confused and fatigued easily falling back asleep, remains cooperative, seated upright in the PCU bed, lethargic, cognitive function not baseline intact; pupils equally reactive to light and accommodation, cranial nerves appear grossly normal but difficult to assess given her presentation currently, moving all extremities, strength severely globally decreased. Psychiatric: Affect appears flat, fatigued, when more alert complaining of discomfort, no acute evidence of depressive or anxiety feelings. Assessment and Plan: Please see hospital summary above. CODE status: Patient's son present and is patient's healthcare decision maker. Discussed CODE status with both son and the patient at length including difference between FULL code, DNR-CCA and DNR-CC status. Following discussions about the differences in these status, requested transition to DNRCC status with continuation of plan for transition to facility with hospice care and focus on comfort measures only. Advanced Care Planning Face to Face Time: 16 minutes. Weight / BMI Weight Weight: 294 lb 8.601 oz Body Mass Index (BMI) 55.6 ABG / Lab / Microbiology Data Result Diagrams: 03/15/23 06:22 03/15/23 06:22 Laboratory: Laboratory Results - last 24 hr 03/15/23 18:12: POC Glucose 212 H 03/16/23 07:51: POC Glucose 175 H 03/16/23 11:49: POC Glucose 154 H Microbiology: Microbiology 03/12/23 16:12 Blood Culture (Wb) - Port Blood Culture - Preliminary No growth in 48 hours. 03/12/23 16:12 Blood Culture (Wb) - Port Blood Culture - Preliminary No growth in 48 hours. 03/12/23 12:15 Urine Catheter - Amaro Urine Culture - Final Presumptive C albicans Meaningful Use Info Meaningful Use Diagnoses (Choose all that apply): None applicable Discharge Plan Admission Admit Date/Time: 03/12/23 15:15 Primary Reason for Your Visit: NICHOLAS on CKD stage IIIb, CHF exacerbation, Candiduria Attending Provider: Missy Loera Primary Care Provider: Jarred Gupta Consulting Providers: Clayton Kraus ; Aba Arias ; Uriel Smallwood ; Arden Echevarria ; Nguyễn Friedman ; Jacquelin Patel NP ; Jai Rodríguez ; Eliane Rosenbaum Instructions Additional Instructions / Restrictions: ADDITIONAL INSTRUCTIONS: Hospice may de-escalate chronic medications until skilled transition. We held her blood pressure medications aside continuation of bumex if her blood pressure allows more for comfort for diuresis to avoid dyspnea with overload. If able may consider pulse dose lasix with hospice if needed. Discharge Orders/Prescriptions Prescriptions: New hydrocodone-acetaminophen 5-325 mg tablet 1 tab PO Q4H PRN (Reason: pain) 5 Days Qty: 20 0RF Continued atorvastatin 20 mg tablet 20 mg PO QHS amiodarone 200 mg tablet 200 mg PO DAILY Label Comments: take 1 tablet by mouth once daily Eliquis 5 mg tablet 5 mg PO BID Label Comments: take 1 tablet by mouth twice a day sennosides-docusate sodium [Senna with Docusate Sodium] 8.6-50 mg Tablet 1 tab PO BID doxepin 10 mg Capsule 10 mg PO QHS acetaminophen [Acetaminophen Extra Strength] 500 mg Tablet 1,000 mg PO Q6H PRN (Reason: PAIN SCORE 1-10) magnesium hydroxide 400 mg/5 mL Suspension 30 ml PO X1 PRN (Reason: Constipation) levothyroxine 50 mcg Tablet 50 mcg PO DAILY pantoprazole 40 mg Tablet,Delayed Release (Dr/Ec) 40 mg PO DAILY gabapentin 100 mg Capsule 100 mg PO BID nystatin [Nystop] 100,000 unit/gram Powder 1 applic TOPICAL BID midodrine 10 mg Tablet 10 mg PO 4X/DAY Rx Instructions: do not give last dose of day after 6PM or within 4 hrs of bedtime cyclobenzaprine 5 mg Tablet 5 mg PO TID PRN (Reason: Spasms) mirtazapine 7.5 mg Tablet 7.5 mg PO QHS menthol-zinc oxide [Calmoseptine] 0.44-20.6 % Ointment 1 applic TOPICAL BID bumetanide 1 mg tablet 1 mg PO DAILY 30 Days Qty: 30 0RF Label Comments: take 1 tablet by mouth daily Rx Instructions: As BP allows. Discontinued metoprolol succinate 50 mg tablet extended release 24 hr 50 mg PO DAILY omeprazole 20 mg capsule,delayed release(DR/EC) 20 mg PO DAILY insulin lispro 100 unit/mL Insulin Pen See Rx Instructions .ROUTE .COMPLEX Rx Instructions: PT TAKES 4 UNITS IN THE AM AND 5 UNITS IN THE EVENING MAY SELF ADJUST NEEDED. ceftriaxone 1 gram Recon Soln 1 g IV Q24H folic acid 1 mg Tablet 1 mg PO BREAKFAST Referrals / Follow Up: Jarred Gupta [Other] (May follow-up with your primary care at your discretion, but given your hospice transition, they will now take over your daily care thus planned follow-up with Dr. Gupta is not neccessary.) Hospice, [facility] [Other] (Please follow-up with [facility] at the Skilled Facility as previously arranged.) Disposition Disposition (needs filled in before D/C Order can be placed): Hospice in Medical Facility Charges/Coding Visit Charges Inpatient E&M: 64693 Disch Hosp >30min Procedures Hospitalists Procedures: 49161 Advncd Care Plan 30 Min
--- NOTE | 2023-03-16 12:53 | PCM.TXEXTCAR ---
Diet Diet Order/Speech Therapy: 03/15/23 16:41 Diet: Regular - General Dietary Modifications: Regular diet, no restrictions given Hospice transition Is pt able to select menu?: Yes Routine Orders/Code Status Enema Frequency: Daily PRN Change Amaro Catheter: Per facility proctol, maintained for comfort. O2 Frequency: PRN (May maintain on supplemental oxygen for comfort and as needed for oxgenation to be maintained > 92%.) Keep PO Greater than or Equal to (%): 92 Routine Lab Work: - (No labs necessary with hospice transition.) Code Status: DNRCC (DNR-CCA, no intubation.) Wound(s) LLE- medial: Wound Type: Stasis Ulcer Dressing Change: AntiMicrobial (Aquacel AG, etc) LLE- lateral: Wound Type: Stasis Ulcer Dressing Change: AntiMicrobial (Aquacel AG, etc) Suggestions for Active Care Change Position every (hours): 2 Hours to sit in a chair: 4 Times a day to sit in chair: 3 Therapies Weight Bearing: Full weight bearing Problem/Diagnosis (1) Acute renal failure (ARF): Status: Acute Code(s): N17.9 - Acute kidney failure, unspecified (2) Chronic kidney disease, stage 3b: Status: Acute Code(s): N18.32 - Chronic kidney disease, stage 3b (3) Anasarca: Status: Acute Code(s): R60.1 - Generalized edema Plan Discharge diagnoses: #1. NICHOLAS on CKD stage IIIb w/ Anasarca secondary to hyotension, ATN, cardiorenal syndrome, infection #2. Acute CHF Exacerbation, Diastolic #3. Candiduria, asymptomatic #4. Acute UTI ruled out (UCx with michela only), recent resolved Klebsella UTI with chronic indwelling amaro catheter #5. Hyponatremia, hypervolemic, secondary to CHF/overload #6. Right pleural effusion and left perihilar masslike consolidation with history of lung cancer, unclear if recurrence #7. Paroxysmal atrial fibrillation #8. Left lower extremity cellulitis #9. Diabetes mellitus type II #10. Morbid Obesity #11. Hypothyroidism #12. Hx prior subtotal gastrectomy #13. CAD s/p CABG #14. Chronic anemia #15. Hypertension #16. Hyperlipidemia Allergies/Procedures Done in Hospital Allergies kiwi Allergy (Verified 03/12/23 14:14) Food Allergy unknown morphine Allergy (Verified 03/16/23 12:51) Confusion unknown Penicillins Allergy (Verified 03/12/23 14:14) Rash shellfish derived Allergy (Verified 03/12/23 14:14) Food Allergy rash Procedures: 2-D Echocardiogram and EKG Type of Care/Length of Stay Estimated LOS: More Than 30 Days Type of Care Needed: Intermediate Rehab Potential: Poor Prognosis: Poor Additional Orders/Day of Discharge Additional Orders: (1) Encourage HOB, (2) Aspiration and Fall precautions, (3) BIPAP q HS may be utilized if patient amenable to assist with overload symptoms also, (4) Change amaro catheter per facility procotol, (5) De-escalate patient chronic medications in conjunction with Hospice. Day of Discharge: 03/16/23 Dietary and Speech Recommendations Dietitian Recommendations/Changes: Continue current diet order. Order Gabriel BID to support wound healing of left leg wound. Discharge Plan Admission Admit Date/Time: 03/12/23 15:15 Primary Reason for Your Visit: NICHOLAS on CKD stage IIIb, CHF exacerbation, Candiduria Attending Provider: Missy Loera Primary Care Provider: Jarred Gupta Consulting Providers: Clayton Kraus ; Aba Arias ; Uriel Smallwood ; Arden Echevarria ; Nguyễn Friedman ; Jacquelin Patel NP ; Jai Rodríguez ; Eliane Rosenbaum Instructions Additional Instructions / Restrictions: ADDITIONAL INSTRUCTIONS: Hospice may de-escalate chronic medications until skilled transition. We held her blood pressure medications aside continuation of bumex if her blood pressure allows more for comfort for diuresis to avoid dyspnea with overload. If able may consider pulse dose lasix with hospice if needed. Discharge Orders/Prescriptions Prescriptions: New hydrocodone-acetaminophen 5-325 mg tablet 1 tab PO Q4H PRN (Reason: pain) 5 Days Qty: 20 0RF Continued atorvastatin 20 mg tablet 20 mg PO QHS amiodarone 200 mg tablet 200 mg PO DAILY Label Comments: take 1 tablet by mouth once daily Eliquis 5 mg tablet 5 mg PO BID Label Comments: take 1 tablet by mouth twice a day sennosides-docusate sodium [Senna with Docusate Sodium] 8.6-50 mg Tablet 1 tab PO BID doxepin 10 mg Capsule 10 mg PO QHS acetaminophen [Acetaminophen Extra Strength] 500 mg Tablet 1,000 mg PO Q6H PRN (Reason: PAIN SCORE 1-10) magnesium hydroxide 400 mg/5 mL Suspension 30 ml PO X1 PRN (Reason: Constipation) levothyroxine 50 mcg Tablet 50 mcg PO DAILY pantoprazole 40 mg Tablet,Delayed Release (Dr/Ec) 40 mg PO DAILY gabapentin 100 mg Capsule 100 mg PO BID nystatin [Nystop] 100,000 unit/gram Powder 1 applic TOPICAL BID midodrine 10 mg Tablet 10 mg PO 4X/DAY Rx Instructions: do not give last dose of day after 6PM or within 4 hrs of bedtime cyclobenzaprine 5 mg Tablet 5 mg PO TID PRN (Reason: Spasms) mirtazapine 7.5 mg Tablet 7.5 mg PO QHS menthol-zinc oxide [Calmoseptine] 0.44-20.6 % Ointment 1 applic TOPICAL BID bumetanide 1 mg tablet 1 mg PO DAILY 30 Days Qty: 30 0RF Label Comments: take 1 tablet by mouth daily Rx Instructions: As BP allows. Discontinued metoprolol succinate 50 mg tablet extended release 24 hr 50 mg PO DAILY omeprazole 20 mg capsule,delayed release(DR/EC) 20 mg PO DAILY insulin lispro 100 unit/mL Insulin Pen See Rx Instructions .ROUTE .COMPLEX Rx Instructions: PT TAKES 4 UNITS IN THE AM AND 5 UNITS IN THE EVENING MAY SELF ADJUST NEEDED. ceftriaxone 1 gram Recon Soln 1 g IV Q24H folic acid 1 mg Tablet 1 mg PO BREAKFAST Referrals / Follow Up: Jarred Gupta [Other] (May follow-up with your primary care at your discretion, but given your hospice transition, they will now take over your daily care thus planned follow-up with Dr. Gupta is not neccessary.) Hospice, [facility] [Other] (Please follow-up with [facility] the [facility] as previously arranged.) Disposition Disposition (needs filled in before D/C Order can be placed): Hospice in Medical Facility
[2023-03-16] MEDS: fentaNYL 100 MCG/2 ML Ampul 25 MCG IV ×2 (13:11→16:27)
--- NOTE | 2023-03-16 13:25 | PHA.DC.MR ---
Pharmacy Service has performed discharge medication reconciliation for this patient upon transfer to [facility]. Home Medications amiodarone 200 mg tablet 200 mg PO DAILY HEART 02/27/23 apixaban 5 mg tablet (Eliquis) 5 mg PO BID Anticoagulant 02/27/23 atorvastatin 20 mg tablet 20 mg PO QHS Cholesterol 02/27/23 acetaminophen 500 mg tablet (Acetaminophen Extra Strength) 1,000 mg PO Q6H PRN PAIN SCORE 1-10 03/12/23 cyclobenzaprine 5 mg tablet 5 mg PO TID PRN Spasms 03/12/23 doxepin 10 mg capsule 10 mg PO QHS SLEEP 03/12/23 gabapentin 100 mg capsule 100 mg PO BID SEIZURE 03/12/23 levothyroxine 50 mcg tablet 50 mcg PO DAILY THYROID 03/12/23 magnesium hydroxide 400 mg/5 mL oral suspension 30 ml PO X1 PRN Constipation 03/12/23 menthol 0.44 %-zinc oxide 20.6 % topical ointment (Calmoseptine) 1 applic topical BID SKIN 03/12/23 midodrine 10 mg tablet 10 mg PO 4X/DAY 03/12/23 mirtazapine 7.5 mg tablet 7.5 mg PO QHS SLEEP 03/12/23 nystatin 100,000 unit/gram topical powder (Nystop) 1 applic topical BID SKIN 03/12/23 pantoprazole 40 mg tablet,delayed release 40 mg PO DAILY GERD 03/12/23 sennosides 8.6 mg-docusate sodium 50 mg tablet (Senna with Docusate Sodium) 1 tab PO BID CONSTIPATION 03/12/23 bumetanide 1 mg tablet 1 mg PO DAILY FLUID 30 days #30 tabs 03/16/23 hydrocodone-acetaminophen 5-325mg 5mg-325mg 1 tab PO Q4H PRN pain 5 days #20 tabs 03/16/23 The patient's discharge medication list was reviewed for discrepancies and discrepancies were resolved.
[2023-03-16] MEDS: LORazepam 2 MG/ML Bottle 0.5 MG SL (14:54)
--- NOTE | 2023-03-16 14:59 | CASEMGMT ---
Discharge Planning Discharge orders, signed med list, DNR order, and transport time sent to [facility] via [facility]. Patient will be transported at 4:30p via stretcher by [facility]. Nursing, SW, patient, and his son all notified. Juana Montero, Discharge Planning Asst.
[2023-03-16 17:50] LABS: Bedside Glucose 183 mg/dL (74-106)
== END 2023-03-16 17:57 | disposition hospice, inpatient (51) | DRG 291 ==
LOC: ED 14:48 → ICU 15:54 → PCU 03-14 16:23
PROVIDERS: Nurse Practitioner Adult Health; Admitting Provider Internal Medicine; Emergency Provider Emergency Medicine; Visit Provider Family Medicine
DX: I13.0 Hypertensive heart and chronic kidney disease with heart failure and stage 1 through stage 4 chronic kidney disease, or unspecified chronic kidney disease (principal); I50.33 Acute on chronic diastolic (congestive) heart failure; N17.0 Acute kidney failure with tubular necrosis; E66.2 Morbid (severe) obesity with alveolar hypoventilation; E87.1 Hypo-osmolality and hyponatremia; J90 Pleural effusion, not elsewhere classified; B37.49 Other urogenital candidiasis; Z68.43 Body mass index [BMI] 50.0-59.9, adult; L03.116 Cellulitis of left lower limb; D63.1 Anemia in chronic kidney disease; I48.0 Paroxysmal atrial fibrillation; E11.22 Type 2 diabetes mellitus with diabetic chronic kidney disease; E11.51 Type 2 diabetes mellitus with diabetic peripheral angiopathy without gangrene; N18.32 Chronic kidney disease, stage 3b; Z79.4 Long term (current) use of insulin; E03.9 Hypothyroidism, unspecified; E78.5 Hyperlipidemia, unspecified; I95.1 Orthostatic hypotension; R91.8 Other nonspecific abnormal finding of lung field; R06.89 Other abnormalities of breathing; Z66 Do not resuscitate; Z90.3 Acquired absence of stomach [part of]; Z95.1 Presence of aortocoronary bypass graft; Z79.01 Long term (current) use of anticoagulants; Z79.899 Other long term (current) drug therapy; Z87.440 Personal history of urinary (tract) infections; Z85.118 Personal history of other malignant neoplasm of bronchus and lung; Z87.891 Personal history of nicotine dependence
CPT/HCPCS: 36415; 36591; 71045; 74176; 80053; 80061; 80202; 81001; 82436; 82607; 82803; 82962; 83605; 83735; 83880; 83930; 83935; 84100; 84133; 84145; 84300; 84439; 84443; 84484; 84540; 85025; 85610; 85652; 86140; 87040; 87086; 87088; 93005; 93306; 94002; 94003; 94640; 94762; 97110; 97163; 97166; 97530; 97535; 97803; 99252; 99282; 99284; J7040; J7050; Q9957; A4216; C8929; G0463; J1940